=== PATIENT | male | born 1960 | race Caucasian/White ===

== ENCOUNTER 2020-05-07 06:37 | Day surgery (SDC) | payer BC ==
--- NOTE | 2020-05-05 12:57 | RAD REPORT ---
EXAM DESCRIPTION: RAD - Chest Pa And Lat (2 Views) - 05/05/2020 12:47 pm CLINICAL HISTORY: PREOP, pending catheterization and stent placement COMPARISON: None TECHNIQUE: Frontal and lateral views of the chest were obtained. FINDINGS: The lungs are clear of mass, infiltrate or failure finding. Prominence of the interstitial pattern believed to be baseline. Heart size is normal and central vasculature is within normal trejo its. No pleural effusion or pneumothorax seen. No acute bony finding noted. No aortic abnormality. IMPRESSION: No acute cardiopulmonary process.
[2020-05-05 13:51] LABS: BUN Blood Urea Nitrogen 12 mg/dL (7-18); Bicarbonate 25 mmol/L (21-32); Glucose Level 87 mg/dL (74-106); Sodium Level 138 mmol/L (136-145)
[2020-05-05 13:53] LABS: Absolute Lymphocytes (CBC) 2.5 K/uL (0.7-4.9); Basophils % 0.5 % (0-1.3); Hematocrit 43.2 % (39.6-49.0); Lymphocytes % 36.6 % (15.3-44.8); MPV 8.9 fL (7.6-11.3); RBC Red Blood Cell Count 4.57 M/uL (4.33-5.43)
[2020-05-05 13:57] LABS: Protime INR 0.99
[2020-05-07] MEDS ORDERED: NA CHLORIDE 0.9% 500 ML ONE (06:57)
[2020-05-07] MEDS ORDERED: LIDOCAINE 1% 20 ML MDV ONE (06:59)
[2020-05-07] MEDS ORDERED: HEPA 1000U/500MLS 1,000 UNIT/500 ML BAG IV ONE (06:59)
[2020-05-07] MEDS ORDERED: FENTANYL CITR 100 MCG/2 ML ONE ×2 (07:26→08:13)
[2020-05-07] MEDS ORDERED: ATROPINE SULF 1 MG/10 ML SYR IV ONE (07:26)
[2020-05-07] MEDS ORDERED: MIDAZOLAM HCL 2 MG/2 ML INJ ONE ×4 (07:26→08:33)
[2020-05-07] MEDS ORDERED: NA CHLORIDE 0.9% 0 ML ONE (07:26)
[2020-05-07 09:23] VITALS: TEMP 97.2
--- NOTE | 2020-05-07 09:33 | OP ---
Surgeon: Neftali Selby MD Fan Engine Engineer: Mr. Phipps. The patient's only medication at home is aspirin. I will make sure I will add statin and low-dose be ta fe and I will follow up with him after the surgeon reviews the films. Reason For Admission: To perform a left heart catheterization with selective coronary arteriogram an d left ventriculogram. Indication: Chest pain and abnormal nuclear stress test. Procedure In Detail: The patient was brought to the laborer tree tapping as an outpatient, prepped and draped in routine sterile fashion. Given Versed and fentanyl for sedation. Using the Seldinger technique, 10 cc of Xylocaine were used in the right common femoral artery area. A 6-Marshallese sheath was introduced in the right common femoral artery area successfully. Angiography there was normal. StarClose was used to close the procedure. The Ministerio catheter left and right were used to cannulate the left patricia n and right main respectively. The left main was normal. He had a 99% LAD with some collaterals fro m the circumflex. The size of the LAD distally appeared to be about 1.5 mm with a 90% ostial large r amus, a 70% proximal large diagonal, 50% proximal LAD, 80% proximal and distal RCA and 90% posterolat eral found after a JR4 right main injection. There were no complications. Blood loss was 5 mL. Postoperative Diagnosis: Severe coronary artery disease. Anesthesia: Total conscious sedation was 45 minutes. The patient will be at bedrest for 2 hours and he will go home. Plan: The plan for him to show a CD to cardiovascular surgeon in [place] and plan hopefully a CABG i n the near future. ADAM/YASMANI Voice ID: [id number] Report ID: [id number]
[2020-05-07 10:38] VITALS: BP 115/65; O2SAT 98
== END 2020-05-07 10:43 | disposition home or self-care (01) ==
LOC: CCL 06:37
DX: I25.10 Atherosclerotic heart disease of native coronary artery without angina pectoris (principal); I10 Essential (primary) hypertension; F17.220 Nicotine dependence, chewing tobacco, uncomplicated; Z20.822 Contact with and (suspected) exposure to COVID-19
CPT/HCPCS: 85025; 80048; 36415; 85610; 85730; 71046; 93454; U0002; C1893; J2250 ×3; J3010 ×2; J7040; J1644; J0583

== ENCOUNTER 2021-12-01 08:53 | Observation (INO) | payer BC ==
--- NOTE | 2021-11-26 14:12 | RAD REPORT ---
EXAM DESCRIPTION: RAD - Chest Pa And Lat (2 Views) - 11/26/2021 1:55 pm CLINICAL HISTORY: Pre op pending knee arthroplasty COMPARISON: Chest Pa And Lat (2 Views) dated 05/05/2020 FINDINGS: Lines: None. Lungs: No evidence of edema or pneumonia. Pleural: No significant pleural effusions or pneumothorax. Cardiac: The heart size is within normal limits. Mediastinum: Within normal limits. Bones: No acute fractures. Sternotomy. Other: None IMPRESSION: No acute cardiopulmonary disease.
[2021-11-26 14:20] LABS: Absolute Lymphocytes (CBC) 2.7 K/uL (0.7-4.9); Hematocrit 41.5 % (39.6-49.0); Lymphocytes % 42.2 % (15.3-44.8); MCV 95.4 fL (80-100); MPV 7.5 fL (7.6-11.3); RBC Red Blood Cell Count 4.36 M/uL (4.33-5.43)
[2021-11-26 14:37] LABS: Protime INR 1.07
[2021-11-26 14:52] LABS: SARS-CoV-2 Antigen Rapid Res Negative (Negative)
--- NOTE | 2021-12-01 06:45 | EKG ---
Test Date: 2021-11-26 Test Time: 13:37:22 Supervisor [employer]: RADHA MEASUREMENT RESULTS: Intervals: Rate: 59 NM: 226 QRSD: 90 QT: 400 QTc: 396 [place]: P: 40 NM: 226 QRS: 10 T: 23 INTERPRETIVE STATEMENTS: Sinus bradycardia with 1st degree AV block Inferior infarct, age undetermined Possible Anterolateral infarct, age undetermined Abnormal ECG No previous ECG available for comparison Electronically Signed On 12-01-21 06:33:10 CDT by Neftali Selby
[2021-12-01] MEDS ORDERED: ACETAMINOPHEN 500 MG TAB ONE (09:22)
[2021-12-01] MEDS ORDERED: GABAPENTIN 100 MG CAP ONE (09:22)
[2021-12-01] MEDS ORDERED: Oxycodone HCl/Acetaminophen 1 TAB TAB ONE (09:22)
[2021-12-01] MEDS ORDERED: CELECOXIB 100 MG CAPSULE ONE (09:22)
[2021-12-01] MEDS ORDERED: CEFAZOLIN 2 GM IN 0.9% NACL 2 GM/100 ML BAG ONE (09:23)
[2021-12-01] MEDS ORDERED: Ringers Lactate 1,000 ML IV ONE ×2 (09:23→16:45)
[2021-12-01] MEDS ORDERED: TRANEXAMIC ACID 1,000 MG/10 ML VIAL IV ONE (10:01)
[2021-12-01] MEDS ORDERED: LIDOCAINE 1% MPF 5 ML VIAL ONE (11:54)
[2021-12-01] MEDS ORDERED: dexAMETHasone 10 MG/ML VIAL ONE ×2 (11:54→13:11)
[2021-12-01] MEDS ORDERED: EPINEPHRINE/PF 1 MG/ML AMP ONE (11:55)
[2021-12-01] MEDS ORDERED: MIDAZOLAM HCL 2 MG/2 ML INJ ONE (11:55)
[2021-12-01] MEDS ORDERED: FENTANYL CITR 100 MCG/2 ML ONE (11:55)
[2021-12-01] MEDS ORDERED: BUPIVACAINE 0.5% Inj,MDV 50 mL VIAL ONE (11:55)
[2021-12-01] MEDS ORDERED: BUPIVACAINE 0.25% PF 30 ML VIAL ONE (11:55)
[2021-12-01] MEDS ORDERED: HYDROMORPHONE HCL 1 MG/ML INJ ONE ×2 (12:35→16:45)
[2021-12-01] MEDS ORDERED: propofoL 200 MG/20 ML VIAL IV ONE (12:42)
[2021-12-01] MEDS ORDERED: LIDOCAINE 2% MPF 5 ML VIAL ONE (12:43)
[2021-12-01] MEDS ORDERED: KETAMINE HCL 500 MG/5 ML VIAL ONE (13:11)
[2021-12-01] MEDS ORDERED: ONDANSETRON 4 MG/2 ML VIAL ONE (13:12)
[2021-12-01] MEDS ORDERED: KETOROLAC 30 MG/ML INJ ONE (13:12)
[2021-12-01] MEDS ORDERED: ONDANSETRON 4 MG/2 ML VIAL IV PRN (15:09)
[2021-12-01] MEDS ORDERED: ACETAMINOPHEN 325 MG TABLET PO PRN (15:09)
[2021-12-01] MEDS ORDERED: DOCUSATE NA 100 MG CAP PO PRN (15:09)
--- NOTE | 2021-12-01 15:09 | P.BOP ---
Preoperative diagnosis: right knee osteoarthritis Postoperative diagnosis: same Primary procedure: right total knee arthroplasty Car Icer: NONE,NONE Estimated blood loss: 50 cc Specimen: right knee bone remnants Findings: see dictation Anesthesia: General Complications: None Implants: [employer] Persona 9 CR Femur, G tibia, 10 CR poly, 32 patella Fluids & blood products: per anesthesia record; TT: 77 mins @ 300 mmHg Transferred to: Recovery Room Condition: Good
[2021-12-01] MEDS ORDERED: TRAMADOL HCL 50 MG TAB PO PRN (15:12)
[2021-12-01] MEDS: HYDROMORPHONE HCL 1 MG/ML INJ ONE ×2 (15:24→15:39)
--- NOTE | 2021-12-01 15:42 | RAD REPORT ---
EXAM DESCRIPTION: RAD - Knee Right 2 View - 12/01/2021 3:32 pm CLINICAL HISTORY: Post Op COMPARISON: No comparisons FINDINGS: Right total knee arthroplasty has been performed. No immediate unexpected postoperative fi nding. Midline skin margarita are present. Small amount of fluid is present in the joint.
[2021-12-01 15:55] LABS: Hematocrit 42.7 % (39.6-49.0)
--- OUTSIDE RECORDS SUMMARY | 2021-12-01 15:58 | XMS REPORT | Continuity of Care Document ---
:1960 Author Organization [facility] t Address [address] [place] [address] Care Team Providers Name Role Phone STEFFANY DEWEY Attending Clinician Unavailable Sunny CARREON, Vania Gamino Attending Clinician [phone] Jeffy Hu DO Attending Clinician Rick RODRIGUEZ, Atul Gauthier Attending Clinician [phone] Gunner RODRIGUEZ, Oliva Baker Attending Clinician [phone] Jesse Myers MD Attending Clinician Alyssa RODRIGUEZ, Palomo Key Attending Clinician [phone] Dustin RODRIGUEZ, Alverto Martines Attending Clinician Flynn Serrato MD, John García Attending Clinician [phone] JESSE MYERS Attending Clinician Unavailable Jorge RODRIGUEZ, Gerardo Rodriguez Attending Clinician Allison RODRIGUEZ, Jacklyn Montilla Attending Clinician Rey Brody MD Attending Clinician [phone] STEFFANY DEWEY Admitting Clinician Unavailable JESSE MYERS Admitting Clinician Unavailable Payers Payer Name Policy Type Policy Number Effective Date Expiration Date S alexandra BCBS PPO POS EPO [id number] 2015 00:00:00 CHOICE Problems Condition Condition Condition Status Onset Resolution Last Treating Co mments Source Name Details Category Date Date Treatment Clinician Date Acute Acute Disease Active [facility] ischemia ischemia 00:00: Medica l of small of small 00 Center intestine intestine Generalize Generalize Disease Active [facility] d 03-30 [facility] abdominal abdominal 00:00: Medi joie pain pain 00 Center SBO (small SBO (small Disease Active [facility] bowel bowel 18 [facility] obstructio obstructio 00:00: Me dical n) n) 00 Center CAD CAD Disease Active [facility] (coronary (coronary 05-29 [facility] artery artery 00:00: Medical disease) disease) 00 Center s/p ACB X s/p ACB X Disease Active [facility] 2 By 2 By 05-28 [facility] Maco Dewey 00:00: Medical 00 Center Coronary Coronary Disease Active [facility] artery artery 05[facility]19 [facility] disease of disease of 00:00: Me dical [place] 00 Center artery of artery of [place] heart 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 Essential Essential Disease Active [facility] hypertensi hypertensi 3 Irma kes on on 00:00: Medical 00 [place] Mixed Mixed Disease Active [facility] hyperlipid hyperlipid - Irma kes emia emia 00:00: Medical 00 [place] Class 3 Class [address] [facility] severe severe 05-19 [facility] obesity in obesity in 00:00: La dical adult adult 00 Center Umbilical Umbilical Disease Active [facility] hernia hernia 05-19 [facility] 00:00: Medical 00 [place] Hyperlipid Hyperlipid Disease Active [facility] emia emia [facility] Allergies, Adverse Reactions, Alerts Allergy Allergy Status Severity Reaction(s) Onset Inactive Treating Comm ents Source Name Type Date Date Clinician NO KNOWN Allergy Active [facility] S Family History Family Member Diagnosis Comments Start Date Stop Date Source Natural father Cancer [facility] Social History Social Habit Start Date Stop Date Quantity Comments Source History SDOH [facility] Alcohol Frequency [facility] History SDOH [facility] Alcohol Std Medical Cent[facility] r Drinks History SDOH [facility] Alcohol Binge Medical Bina ter History of Chews Tobacco [facility] tobacco use Medical Cente r Alcohol intake 2021-03-30 2021-03-30 Current drink[facility] 00:[facility]00 [facility]00:00 alcohol (finding) Medical Center History SDOH 2020-05-26 2020-05-[address] Melanie es Alcohol Comment 00:00:00 00:00:00 Medical C enter Tobacco Comment 2020-05-26 2020-05-26 occasional dip [facility] Tobacco use and 2020-05-19 2020-05-[address] [facility] exposure 00:00:00 00:00:00 Medical Center Sex Assigned At [address] Irma kes 00:00:00 00:00:00 Medical Center Smoking Status Start Date Stop Date Source Never smoker [facility] Medications Ordered Filled Start Stop Current Ordering Indication Dosage Frequency Signature Comments Components Source Medication Medication Date Date Medication? Clinician (SIG) Name Name atorvastati Yes 80mg QD Take [address] n (LIPITOR) 1-25 by mouth Luke s 80 MG 13:26: daily. Medical tablet 39 Center aspirin 81 Yes 81mg QD Take [address] MG EC 1-25 by mouth [facility] tablet 13:26: daily. [address] metoprolol 2021- 12.5mg Q.5D Take 0.[address] tartrate 3-23 -25 tablets [facility] (LOPRESSOR) 00:00: 00:00 (12.5 mg M edical 25 MG 00 :00 total) by Center tablet mouth 2 (two) times daily. Vital Signs Vital Name Observation Time Observation Value Comments Source WEIGHT 2020-06-02 04:24:00 128.05 kg WEIGHT 2020-06-01 07:58:00 129.23 kg WEIGHT 2020-05-31 06:13:00 129.457 kg HEIGHT 2020-05-28 06:23:00 177.8 cm WEIGHT 2020-05-28 06:23:00 129.729 kg HEIGHT 2020-05-26 14:39:00 180.3 cm WEIGHT 2020-05-26 14:39:00 129.729 kg WEIGHT 2021-04-05 05:00:00 103.284 kg WEIGHT 2021-04-03 11:00:00 105.824 kg WEIGHT 2021-04-01 05:00:00 116 kg HEIGHT 2021-03-30 14:25:00 180.3 cm WEIGHT 2021-03-30 14:25:00 108.863 kg HEIGHT 2021-03-29 21:03:00 180.3 cm WEIGHT 2021-03-29 21:03:00 108.863 kg WEIGHT 2021-04-05 05:00:00 103.284 kg WEIGHT 2021-04-03 11:00:00 105.824 kg WEIGHT 2021-04-01 05:00:00 116 kg HEIGHT 2021-03-30 14:25:00 180.3 cm WEIGHT 2021-03-30 14:25:00 108.863 kg HEIGHT 2021-03-29 21:03:00 180.3 cm WEIGHT 2021-03-29 21:03:00 108.863 kg WEIGHT 2021-04-05 05:00:00 103.284 kg WEIGHT 2021-04-03 11:00:00 105.824 kg WEIGHT 2021-04-01 05:00:00 116 kg HEIGHT 2021-03-30 14:25:00 180.3 cm WEIGHT 2021-03-30 14:25:00 108.863 kg HEIGHT 2021-03-29 21:03:00 180.3 cm WEIGHT 2021-03-29 21:03:00 108.863 kg HEIGHT 2020-06-09 10:09:00 177.8 cm WEIGHT 2020-06-09 10:09:00 126.1 kg WEIGHT 2020-06-02 04:24:00 128.05 kg WEIGHT 2020-06-01 07:58:00 129.23 kg WEIGHT 2020-05-31 06:13:00 129.457 kg HEIGHT 2020-05-28 06:23:00 177.8 cm WEIGHT 2020-05-28 06:23:00 129.729 kg HEIGHT 2020-05-26 14:39:00 180.3 cm WEIGHT 2020-05-26 14:39:00 129.729 kg HEIGHT 2020-05-25 09:07:00 180.3 cm WEIGHT 2020-05-25 09:07:00 129.729 kg HEIGHT 2020-05-25 09:07:00 180.3 cm WEIGHT 2020-05-25 09:07:00 129.729 kg WEIGHT 2020-05-19 12:19:00 129.729 kg Heart rate 2021-04-06 10:38:53 70 /min [facility] Oxygen saturation in 2021-04-06 10:38:53 97 /min [facility] Arterial blood by Medical Ce nter Pulse oximetry Systolic blood 2021-04-06 10:38:46 109 mm[Hg] [facility] Diastolic blood 2021-04-06 10:38:46 73 mm[Hg] [facility] Body temperature 2021-04-06 10:38:44 36.61 Josefina [facility] Respiratory rate 2021-04-06 10:38:20 18 /min [facility] Body weight 2021-04-05 05:00:00 103.284 kg [facility] BMI 2021-04-05 05:00:00 31.76 kg/m2 [facility] Body height 2021-03-30 14:25:00 180.3 cm [facility] Procedures Procedure Date / Time Performing Clinician Source Performed BASIC METABOLIC PANEL (7) 2021-04-04 04:45:00 Flynn Serrato [facility] POCT-GLUCOSE METER 2021-04-03 16:00:00 Flynn Serrato [facility] POCT-GLUCOSE METER 2021-04-03 11:38:00 Flynn Serrato [facility] CBC W/PLT COUNT & AUTO 2021-04-03 06:39:00 Alverto Chan [facility] CBC W/PLT COUNT & AUTO 2021-04-03 06:39:00 [facility] POCT-GLUCOSE METER 2021-04-03 06:04:00 Alverto Chan [facility] MAGNESIUM 2021-04-03 04:15:00 [facility] 2021-04-03 04:15:00 [place], [facility] BASIC METABOLIC PANEL (7) 2021-04-03 04:15:00 DustinJasonaartisteven Dunbar mark [facility] POCT-GLUCOSE METER 2021-04-03 01:46:00 DustinAlverto Abid [facility] POCT-GLUCOSE METER 2021-04-02 15:45:00 DustinJeffe Abid [facility] POCT-GLUCOSE METER 2021-04-02 11:37:00 DustinJeffe Abid [facility] POCT-GLUCOSE METER 2021-04-02 06:05:00 Jeff Chane [facility] CBC W/PLT COUNT & AUTO 2021-04-02 04:36:00 Ankita Duron [facility] MAGNESIUM 2021-04-02 04:36:00 Ankita Duron [facility] COMPREHENSIVE METABOLIC 2021-04-02 04:36:00 Ankita Duron [facility] CBC W/PLT COUNT & AUTO 2021-04-02 04:36:00 Ankita Duron [facility] PHOSPHORUS 2021-04-02 04:36:00 Maddison [facility] POCT-GLUCOSE METER 2021-04-01 23:56:00 Jeff Chansteven Redmand [facility] POCT-GLUCOSE METER 2021-04-01 17:14:00 Jeff Chane Abid [facility] POCT-GLUCOSE METER 2021-04-01 11:25:00 DustinJasonoze Abid [facility] POCT-GLUCOSE METER 2021-04-01 03:52:[address] [facility] CBC W/PLT COUNT & AUTO 2021-04-01 03:48:00 Ankita Duron [facility] MAGNESIUM 2021-04-01 03:48:00 Ankiat Duron [facility] COMPREHENSIVE METABOLIC 2021-04-01 03:48:00 Ankita Duron [facility] CBC W/PLT COUNT & AUTO 2021-04-01 03:48:00 Ankita Duron [facility] TRIGLYCERIDES 2021-04-01 03:48:00 [facility] 2021-04-01 03:48:00 [facility] PO[facility]SE METER 2021-04-01 00:34:00 [facility] POCT-GLUCOSE METER 2021-03-31 22:51:00 [facility] POCT-GLUCOSE METER 2021-03-31 17:54:00 [facility] POCT-GLUCOSE METER 2021-03-31 11:07:00 [facility] POCT-GLUCOSE METER 2021-03-31 07:25:00 [facility] W/[facility]T COUNT & AUTO 2021-03-31 03:20:00 Ankita Duron [facility] CBC W/PLT COUNT & AUTO 2021-03-31 03:20:00 Ankita Duron [facility] BLOOD GAS, ARTERIAL 2021-03-31 03:01:00 Ankita Duron [facility] MAGNESIUM 2021-03-31 03:00:00 Ankita Duron [facility] CALCIUM, IONIZED 2021-03-31 03:00:00 Ankita Duron [facility] COMPREHENSIVE METABOLIC 2021-03-31 03:00:00 Ankita Duron [facility] LACTIC ACID, VENOUS 2021-03-31 03:00:00 Ankita Duron [facility] STD PANEL - CT/GC RNA 2021-03-31 02:02:00 Ankita Duron [facility] URINE CULTURE 2021-03-31 02:02:00 Ankita Duron [facility] URINALYSIS W/ REFLEX URINE 2021-03-31 02:02:00 Ankita Duron [facility] CULTURE [facility] GENITAL CULTURE + GRAM 2021-03-31 02:00:00 nAkita Duron [facility] POCT-GLUCOSE METER 2021-03-31 00:06[facility]00 [facility] 2021-03-30 20:26:00 Jacqueline [facility] PROTHROMBIN TIME/INR 2021-03-30 18:40:00 Jacqueline [facility] CBC W/PLT COUNT & AUTO 2021-03-30 18:26:00 [facility] 2021-03-30 18:26[facility] W/PLT COUNT & AUTO 2021-03-30 18:26:00 [facility] COMPREHENSIVE METABOLIC 2021-03-30 18:26:00 [facility] 2021-03-30 18:26:[facility] 2021-03-30 18:26[facility] BLOOD GAS, ARTERIAL 2021-03-30 18:25[facility]00 [facility] + GRAM 2021-03-30 18:17:00 [facility] 1 VIEW PORTABLE / 2021-03-30 17:30:00 Jacklyn Cooper [facility] POCT-GLUCOSE METER 2021-03-30 17:00:00 Lucia [facility] TISSUE EXAM 2021-03-30 15:53:[address] [facility] LAPAROTOMY, EXPLORATORY 2021-03-30 14:25:00 Gerardo Patel [facility] HERNIORRHAPHY, VENTRAL 2021-03-30 14:25:00 Gerardo Patel [facility] TYPE AND SCREEN, AUTOMATED 2021-03-30 14:09:00 MetabenjaminRey huff Christiano [facility] XR ABDOMEN / KUB 1 VIEW 2021-03-30 12:15:00 Wyramos [facility] POCT-GLUCOSE METER 2021-03-30 12:08:00 [facility] SARS-COV2/RT-PCR ([facility] & 2021-03-30 03:40:00 Atul Caberra [facility] REF LABS) [facility] CT ABDOMEN/PELVIS WITH IV 2021-03-30 02:30:00 Vania Correa [facility] CONTRAST [facility] COMPREHENSIVE METABOLIC 2021-03-29 23:40:[address] [facility] PANEL [facility] URINALYSIS W/ REFLEX URINE 2021-03-29 23:29:00 Vania Correa [facility] CULTURE [facility] ECG 12-LEAD 2021-03-29 22:27:41 [facility] 12[facility]AD 2021-03-29 22:27:41 Unknown, Hl7 Doctor [facility] ECG 12-LEAD 2021-03-29 22:27:41 Unknown, Hl7 Doctor [facility] ED ECG INTERPRETATION 2021-03-29 22:27:[address] [facility] CBC W/PLT COUNT & AUTO 2021-03-29 22:19:00 CorreaaVnia harris [facility] DIFFERENTIAL [facility] CBC W/PLT COUNT & AUTO 2021-03-29 22:19:00 Vania Correa [facility] DIFFERENTIAL [facility] LIPASE 2021-03-29 22:19:[address] [facility] TROPONIN I 2021-03-29 22:19:[address] [facility] EKG-SCANNED 2021-03-29 00:00:00 [facility] Plan of Care Planned Activity Planned Date Details Comments Source Future Scheduled 2023-05-26 Lipid panel (procedure) [facility] Test 00:00:00 [code = 36380348] Medical Ce nter Future Scheduled 2021-11-11 INFLUENZA VACCINE (#1) [facility] 00:00:00 [code = INFLUENZA Medical Ce nter VACCINE (#1)] Future Scheduled 2021-03-[address] [facility] Test 00:00:00 (12+) [code = Medical Center DEPRESSION SCREENING (12+)] Future Scheduled 2009-10-10 SHINGLES VACCINES ([address] [facility] Test 00:00:00 2) [code = SHINGLES Medical Center VACCINES (1 of 2)] Future Scheduled 1978-10-10 DTAP/TDAP/TD VACCINES [facility] Test 00:00:00 (1 - Tdap) [code = Medical C enter DTAP/TDAP/TD VACCINES (1 - Tdap)] Future Scheduled 1977-10-10 HEPATITIS C SCRE[facility]ING [facility] Test 00:00:00 [code = HEPATITIS C Medical Center SCREENING] Future Scheduled 1965-10-[address] [facility] Test 00:00:00 0-64 YRS (1 - PCV) Medical C enter [code = PNEUMOCOCCAL VACCINE 0-64 YRS (1 - PCV)] Future Scheduled 1960-04-12 COVID-19 VACCINE (#1) [facility] Test 00:00:00 [code = COVID-[address] VACCINE (#1)] Future Scheduled 1960 CT Colonography (combo) [facility] Test 00:00:00 [code = CT Colonography [facility] (combo)] Future Scheduled 1960 Screening for malignant [facility] Test 00:00:00 neoplasm of colon Medical Ce nter (procedure) [code = 411750420] Future Scheduled 1959 Screening for malignant [facility] Test 00:00:00 neoplasm of colon Medical Ce nter (procedure) [code = 686838228] Future Scheduled 1959 Screening for malignant [facility] Test 00:00:00 neoplasm of colon Medical Ce nter (procedure) [code = 197650851] Future Scheduled 1959 Screening for malignant [facility] Test 00:00:00 neoplasm of colon Medical Ce nter (procedure) [code = 776920124] Future Scheduled 1960 Sigmoidoscopy [code = [facility] Test 00:00:00 Sigmoidoscopy] Medical Cente r Encounters Start End Encounter Admission Attending Care Care Encounter Source Date/Time Date/Time Type Type Clinicians Facility Department ID 2021-11-30 Outpatient [facility] [id number] Common 08:00:[id number] [facility] 2021-09-16 Outpatient [facility] [id number] Common 14:17:[id number] [facility] 2020-12-19 Inpatient [facility] Surgery [id number] [facility] 07:10:59 STEFFANY 2021-03-29 2021-04-06 [facility] [id number] [facility] 22:03:00 13:26:00 Encounter Jeffy Hu Laxman Rao [facility] Ray-Isaias, Oliva Baker [facility] Humberto Palomo Shah, John Bender 2021-03-29 2021-04-06 [facility] N/A [id number] [facility] 22:03:00 13:26:00 2021-03-29 2021-04-06 [facility] [id number] 22:03:00 13:26:00 Encounter Jeffy Hu Laxman Rao Medical Ray-Oliva Esparza [facility] Humberto Palomo Shah, John Bender 2021-03-30 2021-03-30 Surgery Jorge [facility] [id number] 15:00:00 17:30:00 [facility] 2021-03-30 2021-03-30 Surgery Jorge, [facility] [id number] 15:00:00 17:30:00 [facility] 2021-03-30 2021-03-30 Anesthesia Jacklyn Cooper [facility] [id number] 14:40:00 16:57:00 [place] [facility] 2021-03-30 2021-03-30 Anesthesia Jacklyn Cooper [facility] [id number] 14:40:00 16:57:00 Event [facility] 2021-03-29 2021-03-29 Orders [facility] [id number] 00:00:00 00:00:00 [facility] 2021-03-29 2021-03-29 Travel [facility] [id number] [facility]00 [facility] 2021-03-29 2021-03-29 Orders [facility] [id number] 00:00:00 00:00:00 [facility] 2021-03-29 2021-03-29 Travel [facility] [id number] [facility]00 [facility] 2020-06-09 2020-06-09 Outpatient KEVIN RUBIO [facility] [id number] SLE 00:00:00 00:00:00 STEFFANY 2020-05-26 2020-05-26 Outpatient MAULIK [facility] [id number] [facility] 00:00:00 00:00:00 2020-05-25 2020-05-25 Outpatient [facility] [id number] SLE 00:00:00 00:00:00 2020-05-19 2020-05-19 Outpatient [facility] [id number] [facility] 00:00:00 00:00:00 STEFFANY Results Test Description Test Time Test Comments Results Result Comments Source Basic Metabolic Panel 2021-04-04 05:40:33 Test Item Value Reference Range Interpretation Comme nts Sodium (test code = 139 meq/L 331-833 9081-2) Potassium (test code = 3.7 meq/L 3.5-5.5 Speci men slightly 2823-3) hemolyzed Chloride (test code = 106 meq/L 98-106 5-0) CO2 (test code = 21 meq/L 2027-11) BUN (test code = 11 mg/dL 01-05 3094-0) Creatinine (test code = 0.61 mg/dL 0.50-1.20 Spec imen slightly 2160-0) hemolyzed Glucose (test code = 92 mg/dL 70-110 2345-7) Calcium (test code = 8.8 mg/dL 8.5-10.5 91353-1) EGFR (test code = 134 mL/min/1.73 [place] [address]-2) ACCURATE CREATININE LADARIUS BRUCE IN PREDICTING GLOMERULAR FILT RATION RATE. ESTIMATED GFR IS NOT APPLICABLE FOR DIALYSIS PATIEN TS. VANSESA (test code = VANESSA) Net Sql Developer ID - [id number] [facility] Metabolic [id number] 05:40:33 Test Item Value Reference Range Interpretation Comments Sodium (test code = 139 meq/L 177-904 6892-2) Potassium (test 3.7 meq/L 3.5-5.5 Specimen sli ghtly code = 2823-3) hemolyzed Chloride (test code 106 meq/L 98-106 = 2075-0) CO2 (test code = 21 meq/L 2027-11) BUN (test code = 11 mg/dL 01-05 3094-0) Creatinine (test 0.61 mg/dL 0.50-1.20 Specimen sl ightly code = 2160-0) hemolyzed Glucose (test code 92 mg/dL 70-110 = 2345-7) Calcium (test code 8.8 mg/dL 8.5-10.5 = 70909-1) EGFR (test code = 134 mL/min/1.[place] [address]-9) NOT ACCURATE CREATININE CLEARANCE IN PREDICTING GLOMERULAR FILTRATION RATE . ESTIMATED GFR I S NOT APPLICABLE FOR DIALYSIS PATIEN TS. VANESSA (test code = Net Sql Developer ID - VANESSA) [id number] [facility] METABOLIC [id number] 05:40:33 Test Item Value Reference Range Interpretation Comments SODIUM (BEAKER) 139 meq/L 135-148 (test code = 381) POTASSIUM (BEAKER) 3.7 meq/L 3.5-5.5 Specimen slightly (test code = 379) hemolyzed CHLORIDE (BEAKER) 106 meq/L 98-106 (test code = 382) CO2 (BEAKER) (test 21 meq/L 20-31 code = 355) BLOOD UREA NITROGEN 11 mg/dL 10-26 (BEAKER) (test code = 354) CREATININE (BEAKER) 0.61 mg/dL 0.50-1.20 Specimen slightly (test code = 358) hemolyzed GLUCOSE RANDOM 92 mg/dL 70-110 (BEAKER) (test code = 652) CALCIUM (BEAKER) 8.8 mg/dL 8.5-10.5 (test code = 697) EGFR (BEAKER) (test 134 mL/min/1.73 ESTIM ATED GFR IS code = 1092) sq m NOT ACCURATE CREATININE CLEARANCE IN PREDICTING GLOMERULAR FILTRATION RATE . ESTIMATED GFR I S NOT APPLICABLE FOR DIALYSIS PATIEN TS. Net Sql Developer ID - [id number] 16:12:31 Test Item Value Reference Range Interpretation Comments POC-Glucose Meter (test 107 mg/dL 70-110 : TE STED AT [facility] code = 1538) [address] [facility] [address]: Net Sql Developer/Techni yuly ID = [id number] for Ade Naima Lab Interpretation (test Normal code = 77302-9) [facility]Glucose [id number] 16:12:31 Test Item Value Reference Range Interpretation Comments POC-Glucose Meter (test 107 mg/dL 70-110 : TE STED AT [facility] code = 1538) [address] [facility] [address]: Net Sql Developer/Techni yuly ID = [id number] for Ade, Naima Lab Interpretation (test Normal code = 52378-6) [facility]-GLUCOSE [id number] 16:12:31 Test Item Value Reference Range Interpretation Comments POC-GLUCOSE METER 107 mg/dL 70-110 : TESTED A T [facility] [address] (BEAKER) (test code [facility] [address] [facility], = 1538) [facility] 77 384: Net Sql Developer/Techni yuly ID = [id number] for Naima Guillen STD Panel - CT/GC [id number] 15:13:53 Test Item Value Reference Interpretation Comments Range C. trachomatis NOT DETECTED RNA, TMA (test code = 0104422) N. gonorrhoeae NOT DETECTED REFERENCE RA NGE: NOT RNA, TMA (test DETECTED Meth odology: code = 4778204) Transcriptio n Mediated Amplification ( TMA)to detect RNA. The analytical perf ormance characteristics of thisassay, when used to test SurePat h(TM) specimens haveb een determined by [employer]. Th e modificationsha ve not been cleared or approved by the FDA. This assayhas b een validated pursu ant to the Infectiousa tions andis used for clinical purpos es. For additional information, pl ease refer tohttps://First To File/faq /ZWR094(This li nk is being provided for informational/e ducatio nal purposes on ly.) VANESSA (test code = Performing Lab VANESSA) *[employer] [facility] [address] [address] Daniel Cárdenas MD, PhD [facility] - CT/GC [id number] 15:13:53 Test Item Value Reference Interpretation Comments Range C. trachomatis NOT DETECTED RNA, TMA (test code = 8945542) N. gonorrhoeae NOT DETECTED REFERENCE RA NGE: NOT RNA, TMA (test DETECTED Meth odology: code = 4834219) Transcriptio n Mediated Amplification ( TMA)to detect RNA. The analytical perf ormance characteristics of thisassay, when used to test SurePat h(TM) specimens haveb een determined by [employer]. Th e modificationsha ve not been cleared or approved by the FDA. This assayhas b een validated pursu ant to the CLIA regula tions andis used for clinical purpos es. For additional information, pl ease refer tohttps://LOGIC DEVICESa Bokecc/faq /IMB912(This li nk is being provided for informational/e ducatio nal purposes on ly.) VANESSA (test code = Performing Lab VANESSA) *QD[facility] [address] [place] [address] Daniel Cárdenas MD, PhD [facility]-GLUCOSE [id number] 11:49:30 Test Item Value Reference Range Interpretation Comments POC-GLUCOSE METER 107 mg/dL 70-110 : TESTED A T [facility] [address] (BEAKER) (test code [facility] [address] [facility], = 1538) [place] [address] 384: Net Sql Developer/Techni yuly ID = [id number] for Naima Guillen Genital culture + gram [id number] 11:44:17 Test Item Value Reference Range Interpretation Comments Result (test code = 6463-4) 1+ Skin gayle Gram Stain Result (test No organisms seen code = 1123) [facility] [id number] 11:44:17 Test Item Value Reference Range Interpretation Comments Result (test code = 6463-4) 1+ Skin gayle Gram Stain Result (test No organisms seen code = 1123) [facility]AM [id number] 11:44:17 Test Item Value Reference Range Interpretation Comments CULTURE (BEAKER) (test 1+ Skin gayle code = 1095) GRAM STAIN RESULT 2+ White blood cells (BEAKER) (test code = seen 1123) GRAM STAIN RESULT No organisms seen (BEAKER) (test code = 03718) CBC with platelet count + automated [id number] 06:49:45 Test Item Value Reference Range Interpretation Comments WBC (test code = 6690-2) 6.1 See_Comment [A utomated message] The system [employer] generated this result transmitted ref erence range: 4.0 - 10 .0 K/L. The refe rence range was not u sed to interpret this result as normal/abnor mal. RBC (test code = 789-8) 3.25 See_Comment L [Au tomated message] The system [employer] generated this result transmitted ref erence range: 4.20 - 5 .80 M/L. The refe rence range was not u sed to interpret this result as normal/abnor mal. MCHC (test code = 786-4) 33.8 See_Comment L [A utomated message] The system [employer] generated this result transmitted ref erence range: 32.0 - 3 6.0 GM/DL. The refe rence range was not u sed to interpret this result as normal/abnor mal. Hematocrit (test code = 31.1 % 36.0-50.0 L 4544-3) MCV (test code = 787-2) 95.7 fL 82.0-99.0 MCH (test code = 785-6) 32.3 pg 27.0-33.0 RDW (test code = 788-0) 13.1 % 12.0-15.0 Platelets (test code = 215 See_Comment [Aut omated message] 777-3) The system [employer] generated this result transmitted ref erence range: 150 - 43 0 K/CU MM. The referen ce range was not u sed to interpret this result as normal/abnor mal. MPV (test code = 9.9 fL 6.0-11.5 03353-6) nRBC (test code = 413) 0 See_Comment [Aut omated message] The system [employer] generated this result transmitted ref erence range: 0 - 0 /1 00 WBC. The refere nce range was not u sed to interpret this result as normal/abnor mal. % Neutros (test code = 63 % 429) % Lymphs (test code = 23 % 430) % Monos (test code = 11 % 431) % Eos (test code = 432) 3 % % Baso (test code = 437) 0 % # Neutros (test code = 3.89 See_Comment [Aut omated message] 670) The system [employer] generated this result transmitted ref erence range: 1.80 - 8 .00 K/L. The refe rence range was not u sed to interpret this result as normal/abnor mal. # Lymphs (test code = 1.38 See_Comment L [Auto mated message] 414) The system [employer] generated this result transmitted ref erence range: 1.48 - 4 .50 K/L. The refe rence range was not u sed to interpret this result as normal/abnor mal. # Monos (test code = 0.66 See_Comment [Autom ated message] 415) The system [employer] generated this result transmitted ref erence range: 0.00 - 1 .30 K/L. The refe rence range was not u sed to interpret this result as normal/abnor mal. # Eos (test code = 416) 0.18 See_Comment [Au tomated message] The system [employer] generated this result transmitted ref erence range: 0.00 - 0 .50 K/L. The refe rence range was not u sed to interpret this result as normal/abnor mal. # Baso (test code = 417) 0.01 See_Comment [A utomated message] The system [employer] generated this result transmitted ref erence range: 0.00 - 0 .20 K/L. The refe rence range was not u sed to interpret this result as normal/abnor mal. Immature 0 % 0-0 Granulocytes-Relative (test code = 2801) Lab Interpretation (test Abnormal code = 27928-0) [facility] with platelet count + automated [id number] 06:49:45 Test Item Value Reference Range Interpretation Comments WBC (test code = 6690-2) 6.1 See_Comment [A utomated message] The system [employer] generated this result transmitted ref erence range: 4.0 - 10 .0 K/L. The refe rence range was not u sed to interpret this result as normal/abnor mal. RBC (test code = 789-8) 3.25 See_Comment L [Au tomated message] The system [employer] generated this result transmitted ref erence range: 4.20 - 5 .80 M/L. The refe rence range was not u sed to interpret this result as normal/abnor mal. MCHC (test code = 786-4) 33.8 See_Comment L [A utomated message] The system [employer] generated this result transmitted ref erence range: 32.0 - 3 6.0 GM/DL. The refe rence range was not u sed to interpret this result as normal/abnor mal. Hematocrit (test code = 31.1 % 36.0-50.0 L 4544-3) MCV (test code = 787-2) 95.7 fL 82.0-99.0 MCH (test code = 785-6) 32.3 pg 27.0-33.0 RDW (test code = 788-0) 13.1 % 12.0-15.0 Platelets (test code = 215 See_Comment [Aut omated message] 777-3) The system [employer] generated this result transmitted ref erence range: 150 - 43 0 K/CU MM. The referen ce range was not u sed to interpret this result as normal/abnor mal. MPV (test code = 9.9 fL 6.0-11.5 27786-9) nRBC (test code = 413) 0 See_Comment [Aut omated message] The system [employer] generated this result transmitted ref erence range: 0 - 0 /1 00 WBC. The refere nce range was not u sed to interpret this result as normal/abnor mal. % Neutros (test code = 63 % 429) % Lymphs (test code = 23 % 430) % Monos (test code = 11 % 431) % Eos (test code = 432) 3 % % Baso (test code = 437) 0 % # Neutros (test code = 3.89 See_Comment [Aut omated message] 670) The system [employer] generated this result transmitted ref erence range: 1.80 - 8 .00 K/L. The refe rence range was not u sed to interpret this result as normal/abnor mal. # Lymphs (test code = 1.38 See_Comment L [Auto mated message] 414) The system [employer] generated this result transmitted ref erence range: 1.48 - 4 .50 K/L. The refe rence range was not u sed to interpret this result as normal/abnor mal. # Monos (test code = 0.66 See_Comment [Autom ated message] 415) The system [employer] generated this result transmitted ref erence range: 0.00 - 1 .30 K/L. The refe rence range was not u sed to interpret this result as normal/abnor mal. # Eos (test code = 416) 0.18 See_Comment [Au tomated message] The system [employer] generated this result transmitted ref erence range: 0.00 - 0 .50 K/L. The refe rence range was not u sed to interpret this result as normal/abnor mal. # Baso (test code = 417) 0.01 See_Comment [A utomated message] The system [employer] generated this result transmitted ref erence range: 0.00 - 0 .20 K/L. The refe rence range was not u sed to interpret this result as normal/abnor mal. Immature 0 % 0-0 Granulocytes-Relative (test code = 2801) Lab Interpretation (test Abnormal code = 36063-8) [facility] W/PLT COUNT & AUTO [id number] 06:49:45 Test Item Value Reference Range Interpretation Comments WHITE BLOOD CELL COUNT (BEAKER) 6.1 K/ L 4.0-10.0 (test code = 775) RED BLOOD CELL COUNT (BEAKER) 3.25 M/ L 4.20-5.80 L (test code = 761) HEMOGLOBIN (BEAKER) (test code = 10.5 GM/DL 13.0-16.8 L 410) HEMATOCRIT (BEAKER) (test code = 31.1 % 36.0-50.0 L 411) MEAN CORPUSCULAR VOLUME (BEAKER) 95.7 fL 82.0-99.0 (test code = 753) MEAN CORPUSCULAR HEMOGLOBIN 32.3 pg 27.0-33.0 (BEAKER) (test code = 751) MEAN CORPUSCULAR HEMOGLOBIN CONC 33.8 GM/DL 32.0-36.0 (BEAKER) (test code = 752) RED CELL DISTRIBUTION WIDTH 13.1 % 12.0-15.0 (BEAKER) (test code = 412) PLATELET COUNT (BEAKER) (test 215 K/CU MM 150-430 code = 756) MEAN PLATELET VOLUME (BEAKER) 9.9 fL 6.0-11.5 (test code = 754) NUCLEATED RED BLOOD CELLS 0 /100 WBC 0-0 (BEAKER) (test code = 413) NEUTROPHILS RELATIVE PERCENT 63 % (BEAKER) (test code = 429) LYMPHOCYTES RELATIVE PERCENT 23 % (BEAKER) (test code = 430) MONOCYTES RELATIVE PERCENT 11 % (BEAKER) (test code = 431) EOSINOPHILS RELATIVE PERCENT 3 % (BEAKER) (test code = 432) BASOPHILS RELATIVE PERCENT 0 % (BEAKER) (test code = 437) NEUTROPHILS ABSOLUTE COUNT 3.89 K/ L 1.80-8.00 (BEAKER) (test code = 670) LYMPHOCYTES ABSOLUTE COUNT 1.38 K/ L 1.48-4.50 L (BEAKER) (test code = 414) MONOCYTES ABSOLUTE COUNT (BEAKER) 0.66 K/ L 0.00-1.30 (test code = 415) EOSINOPHILS ABSOLUTE COUNT 0.18 K/ L 0.00-0.50 (BEAKER) (test code = 416) BASOPHILS ABSOLUTE COUNT (BEAKER) 0.01 K/ L 0.00-0.20 (test code = 417) IMMATURE GRANULOCYTES-RELATIVE 0 % 0-0 PERCENT (BEAKER) (test code = 2801) POCT-GLUCOSE [id number] 06:16:23 Test Item Value Reference Range Interpretation Comments POC-GLUCOSE METER 115 mg/dL 70-110 H : TESTED A T [facility] [address] (BEAKER) (test code [facility], = 1538) [place] [address] 384: [employer]/Techni yuly ID = [id number] for Jyoti Caceres BASIC METABOLIC [id number] 05:01:58 Test Item Value Reference Range Interpretation Comments SODIUM (BEAKER) 139 meq/L 135-148 (test code = 381) POTASSIUM (BEAKER) 3.3 meq/L 3.5-5.5 L (test code = 379) CHLORIDE (BEAKER) 109 meq/L 98-106 H (test code = 382) CO2 (BEAKER) (test 20 meq/L 20-31 code = 355) BLOOD UREA NITROGEN 10 mg/dL 10-26 (BEAKER) (test code = 354) CREATININE (BEAKER) 0.59 mg/dL 0.50-1.20 (test code = 358) GLUCOSE RANDOM 101 mg/dL 70-110 (BEAKER) (test code = 652) CALCIUM (BEAKER) 8.8 mg/dL 8.5-10.5 (test code = 697) EGFR (BEAKER) (test 140 mL/min/1.73 ESTIM ATED GFR IS code = 1092) sq m NOT ACCURATE CREATININE CLEARANCE IN PREDICTING GLOMERULAR FILTRATION RATE . ESTIMATED GFR I S NOT APPLICABLE FOR DIALYSIS PATIEN TS. [employer] Developer ID - [id number] 05:01:16 Test Item Value Reference Range Interpretation Comments Phosphorus (test code = 3.3 mg/dL 2.5-4.5 2777-1) VANESSA (test code = VANESSA) [employer] ID - [id number] Lab Interpretation (test Normal code = 44302-5) [facility] 05:01[facility]16 Test Item Value Reference Range Interpretation Comments Phosphorus (test code = 3.3 mg/dL 2.5-4.5 2777-1) VANESSA (test code = VANESSA) [employer] Developer ID - [id number] Lab Interpretation (test Normal code = 41707-4) [facility] 05:01:16 Test Item Value Reference Range Interpretation Comments PHOSPHORUS (BEAKER) (test code = 3.3 mg/dL 2.5-4.5 604) [employer] ID - [id number] 05:01:15 Test Item Value Reference Range Interpretation Comments Magnesium (test code = 1.7 mg/dL 1.5-3.0 24591-6) VANESSA (test code = VANESSA) [employer] ID - [id number] Lab Interpretation (test Normal code = 98414-7) [facility] 05:01:15 Test Item Value Reference Range Interpretation Comments Magnesium (test code = 1.7 mg/dL 1.5-3.0 35736-3) VANESSA (test code = VANESSA) [employer] Developer ID - [id number] Lab Interpretation (test Normal code = 75505-3) [facility]2022-[facility]-22 05:01:15 Test Item Value Reference Range Interpretation Comments MAGNESIUM (BEAKER) (test code = 1.7 mg/dL 1.5-3.0 627) [employer] ID - [id number] 01:58:09 Test Item Value Reference Range Interpretation Comments POC-GLUCOSE METER 98 mg/dL 70-110 : TESTED A T [facility] [address] (BEAKER) (test code = [facility] [address] [facility], 1538) [facility] 77 384: Net Sql Developer/Techni yuly ID = [id number] for P once, Arley POCT-GLUCOSE [id number] 15:57:07 Test Item Value Reference Range Interpretation Comments POC-GLUCOSE METER 76 mg/dL 70-110 : TESTED A T [facility] [address] (BEAKER) (test code = [facility], 1537) [place] [address] 384: Net [employer] Developer/Techni yuly ID = [id number] for Naima Guillen Sputum Culture + Gram [id number] 12:26:30 Test Item Value Reference Range Interpretation Comments Result (test code = 1+ Normal respiratory 6463-4) gayle present Gram Stain Result No organisms seen (test code = 1123) [facility] [id number] 12:26:30 Test Item Value Reference Range Interpretation Comments Result (test code = 1+ Normal respiratory 6463-4) gayle present Gram Stain Result No organisms seen (test code = 1123) [facility]AM [id number] 12:26:30 Test Item Value Reference Range Interpretation Comments CULTURE (BEAKER) 1+ Normal respiratory (test code = 1095) gayle present GRAM STAIN RESULT <1+ White blood cells (BEAKER) (test code = seen 1123) GRAM STAIN RESULT 0-5 epithelial cells (BEAKER) (test code = 59803) GRAM STAIN RESULT No organisms seen (BEAKER) (test code = 38327) Urine [id number] 12:24:32 Test Item Value Reference Range Interpretation Comments Result (test code = 6463-4) No growth [facility] [id number] 12:24:32 Test Item Value Reference Range Interpretation Comments Result (test code = 6463-4) No growth [facility] [id number] 11:48:35 Test Item Value Reference Range Interpretation Comments POC-GLUCOSE METER 87 mg/dL 70-110 : TESTED A T [facility] [address] (BEAKER) (test code = [facility], 1537) [place] [address] 384: Net Sql Developer/Techni yuly ID = [id number] for Naima Guillen POCT-GLUCOSE [id number] 06:17:12 Test Item Value Reference Range Interpretation Comments POC-GLUCOSE METER 114 mg/dL 70-110 H : TESTED A T [facility] [address] (BEAKER) (test code [facility] [address] [facility], = 1538) [facility] 77 384: Net Sql Developer/Techni yuly ID = [id number] for Jyoti Caceres Comprehensive metabolic [id number] 05:34:39 Test Item Value Reference Range Interpretation Comments Protein, Total (test 5.3 See_Comment L [Autom ated code = 2885-2) message] The system which generated this result transmit nicol reference range : 6.0 - 8.5 gm/dL . The reference range was not u sed to interpret th is result as normal/abnormal . Albumin (test code = 3.0 g/dL 3.5-5.0 L 51326-1) Alkaline Phosphatase 43 U/L 30-115 (test code = 6768-6) Total Bilirubin (test 0.5 mg/dL 0.1-1.3 code = 1975-2) Sodium (test code = 139 meq/L 176-353 9003-2) Potassium (test code 3.5 meq/L 3.5-5.5 = 2823-3) Chloride (test code = 108 meq/L 98-106 H 2075-0) CO2 (test code = 24 meq/L 20-31 2028-9) BUN (test code = 9 mg/dL 10-26 L 3094-0) Creatinine (test code 0.59 mg/dL 0.50-1.20 = 2160-0) Glucose (test code = 106 mg/dL 70-110 2345-7) Calcium (test code = 8.3 mg/dL 8.5-10.5 L 08935-9) AST (test code = 19 U/L 5-40 1920-8) ALT (test code = 16 U/L 6-50 1742-6) EGFR (test code = 140 mL/min/1.73 [place] [address]-0) NOT ACCURATE CREATININE CLEARANCE IN PREDICTING GLOMERULAR FILTRATION RATE . ESTIMATED GFR I S NOT APPLICABLE FOR DIALYSIS PATIEN VANESSA (test code = VANESSA) Net Sql Developer ID - [id number] Lab Interpretation Abnormal (test code = 46511-6) [facility] [id number] 05:34:39 Test Item Value Reference Range Interpretation Comments Protein, Total (test 5.3 See_Comment L [Autom ated code = 2885-2) message] The system which generated this result transmit nicol reference range : 6.0 - 8.5 gm/dL . The reference range was not u sed to interpret th is result as normal/abnormal . Albumin (test code = 3.0 g/dL 3.5-5.0 L 38438-4) Alkaline Phosphatase 43 U/L 30-115 (test code = 6768-6) Total Bilirubin (test 0.5 mg/dL 0.1-1.3 code = 1974-2) Sodium (test code = 139 meq/L 871-754 4324-2) Potassium (test code 3.5 meq/L 3.5-5.5 = 2823-3) Chloride (test code = 108 meq/L 98-106 H 2075-0) CO2 (test code = 24 meq/L 20-31 2028-9) BUN (test code = 9 mg/dL 10-26 L 3094-0) Creatinine (test code 0.59 mg/dL 0.50-1.20 = 2160-0) Glucose (test code = 106 mg/dL 70-110 2345-7) Calcium (test code = 8.3 mg/dL 8.5-10.5 L 00994-9) AST (test code = 19 U/L 5-40 1920-8) ALT (test code = 16 U/L 6-50 1742-6) EGFR (test code = 140 mL/min/1.73 [place] [address]-7) NOT ACCURATE CREATININE CLEARANCE IN PREDICTING GLOMERULAR FILTRATION RATE . ESTIMATED GFR I S NOT APPLICABLE FOR DIALYSIS PATIEN TS. VANESSA (test code = VANESSA) Net Sql Developer ID - [id number] Lab Interpretation Abnormal (test code = 28247-6) [facility] CenterCOMPREHENSIVE METABOLIC [id number] 05:34:39 Test Item Value Reference Range Interpretation Comments TOTAL PROTEIN 5.3 gm/dL 6.0-8.5 L (BEAKER) (test code = 770) ALBUMIN (BEAKER) 3.0 g/dL 3.5-5.0 L (test code = 1145) ALKALINE PHOSPHATASE 43 U/L 30-115 (BEAKER) (test code = 346) BILIRUBIN TOTAL 0.5 mg/dL 0.1-1.3 (BEAKER) (test code = 377) SODIUM (BEAKER) (test 139 meq/L 135-148 code = 381) POTASSIUM (BEAKER) 3.5 meq/L 3.5-5.5 (test code = 379) CHLORIDE (BEAKER) 108 meq/L 98-106 H (test code = 382) CO2 (BEAKER) (test 24 meq/L 20-31 code = 355) BLOOD UREA NITROGEN 9 mg/dL 10-26 L (BEAKER) (test code = 354) CREATININE (BEAKER) 0.59 mg/dL 0.50-1.20 (test code = 358) GLUCOSE RANDOM 106 mg/dL 70-110 (BEAKER) (test code = 652) CALCIUM (BEAKER) 8.3 mg/dL 8.5-10.5 L (test code = 697) AST (SGOT) (BEAKER) 19 U/L 5-40 (test code = 353) ALT (SGPT) (BEAKER) 16 U/L 6-50 (test code = 347) EGFR (BEAKER) (test 140 ESTIMATE D GFR IS code = 1092) mL/min/1.73 sq NOT ACCURA TE m CREATININE CLEARANCE IN PREDICTING GLOMERULAR FILTRATION RATE . ESTIMATED GFR I S NOT APPLICABLE FOR DIALYSIS PATIEN TS. Net Sql Developer ID - [id number] 05:34:39 Test Item Value Reference Range Interpretation Comments PHOSPHORUS (BEAKER) (test code = 2.4 mg/dL 2.5-4.5 L 604) Net Sql Developer ID - [id number] 05:34:38 Test Item Value Reference Range Interpretation Comments MAGNESIUM (BEAKER) (test code = 1.8 mg/dL 1.5-3.0 627) Net Sql Developer ID - [id number] W/PLT COUNT & AUTO [id number] 05:01:08 Test Item Value Reference Range Interpretation Comments WHITE BLOOD CELL COUNT (BEAKER) 7.5 K/ L 4.0-10.0 (test code = 775) RED BLOOD CELL COUNT (BEAKER) 2.92 M/ L 4.20-5.80 L (test code = 761) HEMOGLOBIN (BEAKER) (test code = 9.5 GM/DL 13.0-16.8 L 410) HEMATOCRIT (BEAKER) (test code = 28.5 % 36.0-50.0 L 411) MEAN CORPUSCULAR VOLUME (BEAKER) 97.6 fL 82.0-99.0 (test code = 753) MEAN CORPUSCULAR HEMOGLOBIN 32.5 pg 27.0-33.0 (BEAKER) (test code = 751) MEAN CORPUSCULAR HEMOGLOBIN CONC 33.3 GM/DL 32.0-36.0 (BEAKER) (test code = 752) RED CELL DISTRIBUTION WIDTH 13.2 % 12.0-15.0 (BEAKER) (test code = 412) PLATELET COUNT (BEAKER) (test 172 K/CU MM 150-430 code = 756) MEAN PLATELET VOLUME (BEAKER) 10.5 fL 6.0-11.5 (test code = 754) NUCLEATED RED BLOOD CELLS 0 /100 WBC 0-0 (BEAKER) (test code = 413) NEUTROPHILS RELATIVE PERCENT 72 % (BEAKER) (test code = 429) LYMPHOCYTES RELATIVE PERCENT 16 % (BEAKER) (test code = 430) MONOCYTES RELATIVE PERCENT 9 % (BEAKER) (test code = 431) EOSINOPHILS RELATIVE PERCENT 2 % (BEAKER) (test code = 432) BASOPHILS RELATIVE PERCENT 0 % (BEAKER) (test code = 437) NEUTROPHILS ABSOLUTE COUNT 5.42 K/ L 1.80-8.00 (BEAKER) (test code = 670) LYMPHOCYTES ABSOLUTE COUNT 1.22 K/ L 1.48-4.50 L (BEAKER) (test code = 414) MONOCYTES ABSOLUTE COUNT (BEAKER) 0.67 K/ L 0.00-1.30 (test code = 415) EOSINOPHILS ABSOLUTE COUNT 0.16 K/ L 0.00-0.50 (BEAKER) (test code = 416) BASOPHILS ABSOLUTE COUNT (BEAKER) 0.02 K/ L 0.00-0.20 (test code = 417) IMMATURE GRANULOCYTES-RELATIVE 0 % 0-0 PERCENT (BEAKER) (test code = 2801) POCT-GLUCOSE [id number] 00:07:28 Test Item Value Reference Range Interpretation Comments POC-GLUCOSE METER 103 mg/dL 70-110 : TESTED A [facility] [address] (BEAKER) (test code [facility], = 1538) [place] [address] 384: Net Sql Developer/Techni yuly ID = [id number] for Jyoti Caceres POCT-GLUCOSE [id number] 17:25:47 Test Item Value Reference Range Interpretation Comments POC-GLUCOSE METER 107 mg/dL 70-110 : TESTED A T [facility] [address] (BEAKER) (test code [facility], = 1538) [facility] 77 384: Net Sql Developer/Techni yuly ID = [id number] for B ciro, Marlen Tissue [id number] 12:51:59 Test Item Value Reference Range Interpretation Comments Case Report (test code Surgical Pathology = 104) Report Case: [id number] Authorizing Provider: Gerardo Patel MD Collected: 03/30/2021 03:53 PM Ordering Location: [facility] - [facility] Received: 03/31/2021 07:24 AM Services Pathologist: Anderson Martinez MD Specimen: Small Bowel, NOS DIAGNOSIS (test code = [id number] 3220) uZzEwMzNcZnRuYmpcdWMxIH tccnRmMVxlcGljOTYwMVxhb uZnLQKngMLnU8GoovcsIJrv VB3xRI6sdSduaOPxfQItFVV oIiHfn7oxl067hLWbk2qrGZ EAvlrjcDk3kJoaQ73tn8J0G bbnI46hpRCuTUE7CYDjTWWk kIKpPMQhLOL5HTApbJRmL7i iZOJcHF8ivatjKInbZFnxHF SprGW0YOMtmBHsC1QoNVOjY VaeGQUfuvt7ZoUfHo6bbIJv eTcyMFxwYXJkXHBsYWluXGZ mGcRsV23NWTbyLT5HRDFJNJ 2UDLLQNRNDYLKVDFSHN7HAG CiWYoutjQUnEQ0jW63ARMdg PO1YLYKIXS7JHNaOGXjvCSR SW5PHFQRMDNKFGrEbWdJUFi 6UMQDnW09CW2wLXLLSHBlqL YIrVMDqMPTRHYMDGUfVB0wW ILqUUL7WY8RJD4uWHVXezxK gMR0LDF8CIEuTDfRPJ3weOL OEDvOWPhtWGSpxYFH4h4pen GYxXHNzdGUxODAwMFxhbnNp GNCePcsauawtCKYbTRG9iuW lBMGpYZtwEFWpYOomJk2dmN BbkRwnMfNiYXKrk3fitzKEs xbpmEm9o9rcBIUeUsN3rRSo VQbiA5ehgkZyuQSzFEPsICe 3pP57IWZhbS9qwGYaAJinqt GvEaR2IHvcTSZyQsO5FOBhx CUvJBGuX3waZOMmLSqtRULb OCuutMCiHMQ9jOarb9N4lRN zaGVldHtcZjBcZnMyMiBOb3 HiERi8eHxbO6NaEIGtRrK8f HQgUGFyYWdyYXBoIEZvbnQ7 qD04IYcvsuT7eEPoo7Weq75 py401fX5khJFpFVE8CWOsGV YqsSWpHSXeVGY1GJMtfLXvY 7hbCYWmER3buhpkVVygJRsg OZDflWJ9ZWBueEEmZ8DvULK dEKshKDKbpgz7LeCjMk6qvE AfzWptWVhze5tof8uwmQKcV dh6EUNsJuBaOrxxOBybp3El v4qaABZlnv8pVFN2gRWcmGq xz3G8gLHcRWEsmKBuGJZmNM 4pmMWaCQGreD6zqzroOSDuR mImomdjIPRmsYtaisLmHa5m oHmiUKZ1PJkdE8tpsP0iDaQ 2PYruW8ywiF3rDRu5MWonGT BtdZO7dxQ7XJQlhNUrD1Pjm V4aMOMrVA3iplk9i3wiFLG4 MGndMLEeKgL6grE8HUNarPZ cBELkzBuuXYgjb651HLI1Ur UzYDByb7TfN7MroPpwT57sv NwwV79xVRUhbCabzF9uaPtg cL7xTcAoArAaDUinlXzcGN9 iZMZvN1mzmRUlORUxQTSsL0 hgZsFyaL1eoBoaVZboeuFdU MAsTdb6QCRchYUgAHQsRpp8 TIHfNUAsM54jppouXKT4hZ9 tc0qqv7MqHXduYYF1ZGUva0 3bJJpvpqJ6ZXfkSl6kYkVlG SR7GYmnVZU6lX== CPT Code(s) (test code s3hwhOYbEKXuqYR2EbRwRPO = 3357) gs9vqa6JwjFGpcWRkIAtniJ JtgiYygx21nAL7iW49DB2rV RFuAgE7KPDltkV2Wrk4VRAl YDCjvQPzX531d9wrx3lfvqP nrCW3aOlqFRZetysrClS1LV zxFWBxhdhfWCm0ZCvdWUUac UU0AFCpuXBgU7CoOASeMT3y ufi4SFM7VSckZCIlPzK7RBT tlNPfXVWyhMrxPAjas708MF O0QiAwQVSyyuGmsVlwaB8pZ xXzFTT5KBGyK1wqTNI2 CLINICAL HISTORY (test p4fnlRObJAYfjZK1LfXgNBA code = 3356) ug1sat8LrpGKygQOeTFeyxN KhjdUxmp15qBZ4pD58QB2aN XOzUjK1EZYphzX4Ojq6MUHw ATQmzLDoL337j6wtt6ileaN lnHK4dXriXRGxiguqOvC5TA hkKINbnqaoGHu1DWvyKVNcv FU9ZPEleSVtS3XuPWOsEE9x dcx5MPD5KWrtPQEpKkX9KCM gvHOmHOCgnVobTKhpi163CK J2GbVlJSYgybMdlDzanP2cF bBdFPHMbXAuqH7st3fxnJNv EtI5wzLljUsvym1bRJIxJ2F rmUNrQNH3uGtdekH4r0Y1DV qizPTzp0DmhLnyaQUxmI== SPECIMEN SOURCE (test q8djjFHnNEZweVY1VyYhJLL code = 3377) vd2pxw2FilAXfmFWaFDuxoC CabeIfnp01sLO6rM66UK3rD DIpDaG9IDZezuG3Zio3GBYp RADpkBNtV900j5uqo4qjheG xkOP0sGwtBFQfuijtHqE9IW kmDHHrsmwyXPc6FIdcWMDxb FH0MRPqrAIdR0ZrYDQlBR3j ype7QKT9SAolYILiDwG5GFS ppJXbJJCzfHhuCLpbz679MJ M9OmBwPVSdnoPstUmmzY6cJ nAmJDCMbABahQNtl9ikkCUB K3MziNRofE== GROSS DESCRIPTION s7jgsOToVSQycRI2KzRnPAC (test code = 3366) zq7cgb7BbkVHpkSQsQJlzuG XjefXkqw24bKO6bY26CV6kL CYuDgM8MJGmyzV5Ild7OJCb PXVvuFPfT453e4awz0zcjhS xqXV3zHktAVWalkcyJwK7YP tzSREzybdkUXh7SLdjOGAhu ON3LDEanMOuC0WpWENjGG6s nnz9FBI1OYsfBBKqYaI5ANM gsUPvIKYsjRjeVJwvi515MF P4KmEbZPNqpbAfmHdqxG8dJ nUkTBHJuFXqgZ7mdLB6gGVy bKushGZcZEV1j3RfUGMrq51 0YWluZXIsIGFuZCBjYXNzZX J4YOQnMZpmRDUcXTFfIUFeV 8BtCe0xWDYjPNNsxjywGDAg DpDhHTz7ZERqdJ4xLa4anZN hfC4xlCDsVWglPMD4kERqEU GmDYNrJTRoTH37S5WajgYpY SAoTWNLZWUpIGFuZCBtZWRp M4LkJAEyF34wVVUuaP1lTHL eHQUambuaAIVzY1RaW3yiVQ 4cFOdvShArVEh8LCWkhR8kS o9wcQYqfX5ykNZmIJanZVHh ymJjl42pnZqkXt35XFchIUt pNTQeOWZvv2coKoQiz37ja9 VnbWVudCBvZiBzbWFsbCBib 3dlbCBtZWFzdXJpbmcgNzkg U26nnS9nbFEdM3GwGEtgoQl eYAIdkuLfGNMoaUAkrC9rDO UefgNgddVoDU2gaM1kWTEql 45mJr98CQHwENRuIQPwXLNf DxJmuG3tCNcfejCbmMGwEEW zdGFwbGUgbGluZSBhdCBlYW JeUHMlBLXoFbT6zGEwv7IvT 5ciMY4kCF1tLM5jsMDkfSB0 eK5dPXumBV3gzROmAlJYzZM pCN5mdeCdhPRjJDRbtsxuOa gaFNwpl5ZdvEpoPKUfLBAyN RbxWKWma3bxb1DxROEmUTRj Ei8eZAGrOOHks25ld61jTJ7 ajvxmxq2aWYbsQENlps7vPE ooz9UxTdVgPSAhZSJoSTJ9t 7u0IDMfz9sjLCugsNlzQKUo LZhsOepqhl41pjDhILzbo6g cqlJfOI6rKDF4ofSvXL74VZ L7tGPixWZsrXVtym04LBRiP MQfJQOdxILta3RfHKM2adJw G3VnERDoYKTrBNWeNwPld70 iGS3gPXkobJ9slaqpQ0yrRq BPjqFzpYIzuiK6YOPyTPPyY NDvd6HkdD2gzMUtJPAqYIEn w4VoIO0tFaSralAilxEiYU8 bMGM6jXFoJLDqmpNjuyI6iX CdisB0KEZmKCGeCMqcc8ixG 4dvqAWbt4HxYMGiDw55GCsc Ct96RCFvBaQRpXTrp7IliVG fDfA0iRFpUn26ZNphfJ6vmA cktlXsroZtAZ8sKUE9nlOkW SFfIVVgvH3pGYiaLIlygExu h9YrzNqjKVMbu9OyWQvpBK3 0aGVyIGFyZWFzIHJhbmdlcy Oqjt5mGLNxIaB2seGzVwXiS 34wAWSrH0Wim15ncrufcrA8 ZWFscyBubyBvdGhlciBtYXN xSSXcKLRlovepYTWoV81jGK HyEwBmCIC3xD7vxoxkRZIaA CMzq4vhnUTaXHQpNJZqxOA7 WPoxzEUuD6cvtsxiKMKhWRL sZBZwAPH7gP4oztIehm5lOL PpgY1zPVAyDBJwGExfUOXbE BS5ZZOqKPE3dA3cwtPlkq5k VWBxCIO0hSSudwQ1DXNnDDO rHDahLDKxRAFuNREzMU7mj0 3qk6WirUamcuDlr7CxYl95R FuiNXbZG9F9BEhiWEI9 [facility] CenterTissue [id number] 12:51:59 Test Item Value Reference Range Interpretation Comments Case Report (test code Surgical Pathology = 104) Report Case: [id number] Authorizing Provider: Gerardo Patel MD Collected: 03/30/2021 03:53 PM Ordering Location: [facility] - Perioperative Received: 03/31/2021 07:24 AM Services Pathologist: Anderson Martinez MD Specimen: Small Bowel, NOS DIAGNOSIS (test code = [id number] 3220) uZzEwMzNcZnRuYmpcdWMxIH tccnRmMVxlcGljOTYwMVxhb dKmXFOjeLOsI5BinuizNTtm RU4kNT1elQaaaTDykOTgNOE mWhGnh3fxy252mSYfo8srEV PRawwzdFq1nPpyP28ml8G4K snhK42dqNWpPZQ9LVCsJDPm tUPhTLYmYIA1UVCmbYKjF5h wOAScRS7ydjbzIVbvWUklTA OnmFS1TYNsbNFxM5XnCFNuJ ZakRAPxqdl2ErIaLq7qdSHh eTcyMFxwYXJkXHBsYWluXGZ gTsReH11HFVqwTG9NBQWSKG 7PHENEFAMNGZDMOUPPF9SMU RqEDdbmwLJpGP9bA00UIFfe NL5SKUBEVX3DKIuYUHcuRQZ AV0BUDBEEXSZIVuYhCgRGJc 7JQDNcX45NS6cSDGRABBxrQ RGuJWZgQDSFAASTQCbIV0wK ADkODB6EX3UHR7gOJBSmnaY jXH7HOU0TYEhCIkRYS7krMA SSJnRFKkxSBOfzNII6v5uul GYxXHNzdGUxODAwMFxhbnNp XLRjMnbthmztZICsNMC2ljN gXVXiKQcdARYyZRdhNm2noS TkoLtgJnUcBDBhq4wxpiTFj hqoiDt1c3agOACoNqN6tBXe NXpfN2hrbsGiaBFpULRqLEu 3rJ78XGVepV5qxAJlVWznso DwVgV7AVbvAGFkHgF6AUToh NDzDBGxJ3aoQQWpERafJSQu PNijxEJbOAT7gTcug5V9wOO zaGVldHtcZjBcZnMyMiBOb3 FcVUw4eDqcO0BuONPnEuC6f HQgUGFyYWdyYXBoIEZvbnQ7 yN68CMbxvpA3bZPen2Isa37 vg861aC0lxQPcLNI0DTGgQT OajIGqANVbFFD4VXGtaXOkT 5xvTGWeDI5fynloNSinQMhv MXPsuVB5WKUcrDPcC1HkNAV nQVeqMCCallg0QdSpXb5moW VrmIdaUMxqk8cea9pzbLKnQ jk4WZJgSyGuQldgPMlvg5Wf p4itWWZuvv6jTWO3qDGdaOc eh3W8xESyDCYmsRCtAUOeZO 9poQTtCAIinR8duffoYBWgE gIerokyRBMqmHefblOjKs7v lOfkWIG7LYouB1hogP7qEmK 0OAwnZ4lovF5oPXa2MEsiAT JbbIN3bxG4OYVtzHUxQ9Qyj A1uEMIwWO2alxv0i4avPNJ7 XJqpCBNrFsA2dkZ4KGRegDI vWWKheLbrAQyyp011CXD8Ig GpVLBzf8OkN0BsoMbkR94ve UomC38sXVYqbEpmtH8mvEqb pO5aZyLhFwTyVGwodNdtYE9 cUIYuS0ecvYJlQVFcLUJlU3 esMeVufE6tgYxmHSvjvfRcD UEwIfa2AUQjuJMiLSRwFsz3 EIEtVQGiP30dsbfyUIZ8fZ7 hl0hmt5NyOInnBZX1ULZqe7 1zNIcgngO1BOvgMq3iGlNnB CV1WYgyBSX5uV== CPT Code(s) (test code t7skwOIeIKAnkQC9LfCwDJT = 3357) ca4lzm0UkaREwbZCtTHvtzF FkyuGcva26iVI4xZ81EK7mA CKeTeH8NSFghdF1Owp8IHKu CUOvbKNpO777v2yii3kudbP akGE9jKphZEYapggpObI0ER asLDIdkvqlLHi3EMmnPLSca EI0CGMfbCOyR1HqVEXlWT5x bcu6COV6WUfvEQZqMuY2FUK zfFSrANDbsOhvDLxgi193DS M1LeFcOORnwxZwuEynpT2yR kEjMYB2KOAhE3uxFEK1 CLINICAL HISTORY (test o9hkaJIsAVYuhQG7YzKqHZA code = 3356) di1xfz0OyiEYskXTnRLgpjF FmvpDyzg49tQJ7aO46RJ4vS XBeKvB9ZXAvvtO4Itc5IRIq TPGcvBPzS191g4pdd8pfkpJ efYJ7xDyiXUBjjqklWzZ7BB vcAEKfcljiQDg9WXqzWJXtg MR4CZOiwRIoY2KzADWhEO2k bay6GTR9MXtxFJMnGoU7HOE vaNFrNIKslEvxVJdpe468DG E1XqEvRWYxnzCndCrfgY4dJ lAuCUGMaWQywH1yx1zauFLj FwC6gkUmjQatfr9mUIBuP1L qsVVuYBR6mUbynrA7b6N5FG yyuCEpu3JwfTzviGQonC== SPECIMEN SOURCE (test y7qvcFNsUPTvbBN0ZzQqMHJ code = 3377) vc3qci2YoiSDskVXpTKbrcK ZbmgQhmq46wAR2bM59GR4dO QWtTsF0SIHsxlI9Bln8BUSt HLVotONrB603n7map8hrvfU uhVF4kKrrWBBllvhtJfD3MS huRGRejcjiYSb5XSprJTCoi ME2VWUgqOUyI4DsWGAhFW1g vwx1OLT5JVfzZJZrUkI8TTL qjHOoNRWfuWmwPQptb524ES F7UrAvCLJetgIwnOnzgK2dY fLvTCIXpJQlgTEty4cqaYXI R1RygQOkwL== GROSS DESCRIPTION f8sngWTeYWSesFN8OgBbCDM (test code = 3366) jx1vtt0OchTAmkOAvLBszxT DlttHxnj66uIQ6kR88MD8yU MMuEoT6KGEbvrB5Pho1FEBn SGPrmSVaV162y7uik1djcnM weHT9aPngICVgrfyqHuR7ZX fsRPHsdgufBJi5CDohIQZjr IY9KZZesDRxA1CsFZLrMI0a rba2XAA4JZnrHXLtCfZ8FSZ ogUShLCExeThyTHwww440XZ D6XgTfTWXtufKhhFpfaL5eL sZeVTJAwQKqrB0qfPQ4aTXs gPzjcJIxRDP4y1DwKXHop49 0YWluZXIsIGFuZCBjYXNzZX T0GRQhVBqyMIKxOBYpTWUbK 9JtCt4gYWLhONRwdulpQHTt DpKwQLe9YMOnrE5bQx4amTY lfO0rxEBfYKdhJEI7oKAbOE ToBIXkUTHhGH21P1YihnQjE SAoTWNLZWUpIGFuZCBtZWRp X6LoYRNbY08gCPNawL5pEBZ lNQHyxgytZWBkN2BxF1pgJL 2eYXubMqSkLBy3JFFmdH7fK o0icAPdjM1vuRGoLFcjQUGy aaOaw80ddVcgGq41FYczMHu kFWKnECUoq8knHhRvz79kl1 VnbWVudCBvZiBzbWFsbCBib 3dlbCBtZWFzdXJpbmcgNzkg N83csG6ihXQhC1JdCAainJi wQCWlbsSzYCYzeZOwjO7uVU TlwmFnapIhFO0zxG1bOEJlp 89lQh32GNDoFLNmUFHjEVPu NeVqpA6zPFrlqqTouIMrPEG zdGFwbGUgbGluZSBhdCBlYW FiOMHnNKHnLyT9kKBki5XcW 1plQC2vZN6wPW6bbQVraZU7 vM5nSFpgBO5roUOgTzLOqUO aBV3bynXuzFCwUHBabrwqJb hdBYneg4GfjGdbSVHkJSIjN LqiQCMie1xyi8QkJDDxCRAm Ur0pTDKcVTHwt72lw43lVY5 djpezed5oMFjkCBRemb3zHM oyu4IqXcGnJVLeJAHjOOS5g 7c1FWQax6gmHAgzxTppFFBr HRkiKikfbb57evFuJBkyu9l pmyNsUQ3mSTV3crGrDR22OS K3uOEngCQfuXZvuj55ONTrL MTsRJKyjWKhc2YeHPZ3idDv P5AfSXIjDJYuDMIaMyOtm26 fKO7dKUidzL3ejtqbW6trLm QKpvQnoGPcrkS9QZAgGXPcE WDmr3DwmA8hxPGuMCRjRTSe k9OoWM9dEcYtsxPpynPaIV4 hBGB8fAAlBBAniuBkjoZ0tR FzdtE1TJOpZHOrDNvrt8zgQ 1spcKOlg5McWSKqKi96AQme Qb20VVGqHtXEjRJqy9YdfGC iHlX1dFMyMl73TMfzoQ0jiX exzyCzjzGoHF4hWJB6rfTsQ ZPlNQScmW0bRGchTNehkSyz k9DhfKfpFWZom8HdQLutJZ0 0aGVyIGFyZWFzIHJhbmdlcy Ncpn7vMCYaNpZ8zbMxFdMsM 92gBQZkV3Fcj86urptwvnC6 ZWFscyBubyBvdGhlciBtYXN cHJZoTHItezesVTQaH10rTT LyPlYlGSC0hS3dydjpVXJsE LCbz9blpYJzYMWpIRNhoYS6 ADjxzLBtE8hklycoUOLkSBP bAOWvFFF7cK1rnsDbgw4nUW GofV7aSYYwTDZaOOflGSIvZ PI3AKXqMCZ5sB4cgxGulm3y KNDkYZD7hTEzrmA1JZVdJNB wARgzKQNdEWQpNFYmPV0yx3 3ej4HkhQxoabQvc2FuSi69D BsfQSbEC6P7TCwtAQH6 [facility] [id number] 12:51:59Surgical Pathology Report Case: [id number] Authorizing Provider: Gerardo Patel MD Collected: 03/30/2021 03:53 PM Ordering Location: [facility] - Perioperative Received: 03/31/2021 07:24 AM Services Pathologist: Anderson Martinez MD Specimen: Small Bowel, NOS SMALL INTESTINE, PARTIAL RESECTION:- SMALL INTESTINE WITH HEMORRHAGE AND NECROSIS CONSISTENT WITH ISCHEMIC NECROSIS- NO MALIGNANCY IDENTIFIED Signing Pathologist Direct Phone Line: [phone] signed by Anderson Martinez MD on 04/01/2021 at 12:51 [id number] obstruction. Procedure exploratory laparotomySmall bowel NOSThe instrument, paperwork, container, and cassettes all read as [id number].Received in formalin labeled with the patient's name (Leidy) and medical record number.Specimen A: Received in formalin labeled as "small bowel" is a dusky brown segment of small bowel measuring 79 cm in length with average circumferences ranging from 2.5 cm up to 4.7 cm. There is a staple line at each end of the specimen. No orientation is noted. The ends appear viable grossly. There is a kinked area 7.0 cm from one margin. The serosal surfaces are dusky brown with a few fibrous adhesions. No purulent exudate is noted. The mucosal surfaces are red-brown and hemorrhagic. No discrete masses or polyps are noted. Near one end, there is an ulcerated area, which measures 2.5 x 2.5 cm. The wall of the bowel in this area measures 0.1 cm. The wall of the bowel in other areas ranges from 0.3 to 0.5 cm. Sectioning reveals no other masses.Code of sections: A1, proximal and distal margins; A2, A3, sections from crimped area; A4, A5, sections from the ulcerated area; A6- A10, random sections of bowel. /ewPOCT-GLUCOSE [id number] 11:37:07 Test Item Value Reference Range Interpretation Comments POC-GLUCOSE METER 92 mg/dL 70-110 : TESTED A T [facility] [address] (BEAKER) (test code = [facility], 1538) [place] [address] 384: Net Sql Developer/Techni yuly ID = [id number] for Marlen Gomez COMPREHENSIVE METABOLIC [id number] 04:36:14 Test Item Value Reference Range Interpretation Comments TOTAL PROTEIN 5.0 gm/dL 6.0-8.5 L (BEAKER) (test code = 770) ALBUMIN (BEAKER) 2.9 g/dL 3.5-5.0 L (test code = 1145) ALKALINE PHOSPHATASE 42 U/L 30-115 (BEAKER) (test code = 346) BILIRUBIN TOTAL 0.9 mg/dL 0.1-1.3 (BEAKER) (test code = 377) SODIUM (BEAKER) (test 141 meq/L 135-148 code = 381) POTASSIUM (BEAKER) 3.6 meq/L 3.5-5.5 (test code = 379) CHLORIDE (BEAKER) 110 meq/L 98-106 H (test code = 382) CO2 (BEAKER) (test 24 meq/L 20-31 code = 355) BLOOD UREA NITROGEN 13 mg/dL 10-26 (BEAKER) (test code = 354) CREATININE (BEAKER) 0.67 mg/dL 0.50-1.20 (test code = 358) GLUCOSE RANDOM 109 mg/dL 70-110 (BEAKER) (test code = 652) CALCIUM (BEAKER) 7.9 mg/dL 8.5-10.5 L (test code = 697) AST (SGOT) (BEAKER) 21 U/L 5-40 (test code = 353) ALT (SGPT) (BEAKER) 14 U/L 6-50 (test code = 347) EGFR (BEAKER) (test 121 ESTIMATE D GFR IS code = 1092) mL/min/1.73 sq NOT ACCURA TE m CREATININE CLEARANCE IN PREDICTING GLOMERULAR FILTRATION RATE . ESTIMATED GFR I S NOT APPLICABLE FOR DIALYSIS PATIEN TS. Net Sql Developer ID - [id number] 04:35:21 Test Item Value Reference Range Interpretation Comments Triglycerides (test 109 mg/dL code = 2571-8) VANESSA (test code = VANESSA) TRIGLYCERIDE REFERENCE RANGELow Risk <150Borderline Risk 150-199High Risk 200-499Very High Risk >=500Operator ID - [id number] [facility] CenterLxigxkJfkvmlepygesm7482-41-79 04:35:21 Test Item Value Reference Range Interpretation Comments Triglycerides (test 109 mg/dL code = 2571-8) VANESSA (test code = VANESSA) TRIGLYCERIDE REFERENCE RANGELow Risk <150Borderline Risk 150-199High Risk 200-499Very High Risk >=500Operator ID - [id number] [facility] CenterBgnujdAMXIBEDAOVVIF4894-95-43 04:35:21 Test Item Value Reference Range Interpretation Comments TRIGLYCERIDES (BEAKER) (test code = 109 mg/dL 540) TRIGLYCERIDE REFERENCE RANGELow Risk <150Borderline Risk 150-199High Risk 200-499Very High Risk >=500Operator ID - [id number] 04:35:20 Test Item Value Reference Range Interpretation Comments MAGNESIUM (BEAKER) (test code = 2.0 mg/dL 1.5-3.0 627) Net Sql Developer ID - [id number] 04:35:20 Test Item Value Reference Range Interpretation Comments PHOSPHORUS (BEAKER) (test code = 1.8 mg/dL 2.5-4.5 L 604) Net Sql Developer ID - [id number] 04:03:58 Test Item Value Reference Range Interpretation Comments POC-GLUCOSE METER 101 mg/dL 70-110 : TESTED A T [facility] [address] (BEAKER) (test code [facility], = 1538) [facility] 77 384: Net Sql Developer/Techni yuly ID = [id number] for [place] CBC W/PLT COUNT & AUTO [id number] 04:01:29 Test Item Value Reference Range Interpretation Comments WHITE BLOOD CELL COUNT (BEAKER) 7.3 K/ L 4.0-10.0 (test code = 775) RED BLOOD CELL COUNT (BEAKER) 2.93 M/ L 4.20-5.80 L (test code = 761) HEMOGLOBIN (BEAKER) (test code = 9.6 GM/DL 13.0-16.8 L 410) HEMATOCRIT (BEAKER) (test code = 28.9 % 36.0-50.0 L 411) MEAN CORPUSCULAR VOLUME (BEAKER) 98.6 fL 82.0-99.0 (test code = 753) MEAN CORPUSCULAR HEMOGLOBIN 32.8 pg 27.0-33.0 (BEAKER) (test code = 751) MEAN CORPUSCULAR HEMOGLOBIN CONC 33.2 GM/DL 32.0-36.0 (BEAKER) (test code = 752) RED CELL DISTRIBUTION WIDTH 13.5 % 12.0-15.0 (BEAKER) (test code = 412) PLATELET COUNT (BEAKER) (test 154 K/CU MM 150-430 code = 756) MEAN PLATELET VOLUME (BEAKER) 10.4 fL 6.0-11.5 (test code = 754) NUCLEATED RED BLOOD CELLS 0 /100 WBC 0-0 (BEAKER) (test code = 413) NEUTROPHILS RELATIVE PERCENT 67 % (BEAKER) (test code = 429) LYMPHOCYTES RELATIVE PERCENT 17 % (BEAKER) (test code = 430) MONOCYTES RELATIVE PERCENT 13 % (BEAKER) (test code = 431) EOSINOPHILS RELATIVE PERCENT 2 % (BEAKER) (test code = 432) BASOPHILS RELATIVE PERCENT 0 % (BEAKER) (test code = 437) NEUTROPHILS ABSOLUTE COUNT 4.87 K/ L 1.80-8.00 (BEAKER) (test code = 670) LYMPHOCYTES ABSOLUTE COUNT 1.25 K/ L 1.48-4.50 L (BEAKER) (test code = 414) MONOCYTES ABSOLUTE COUNT (BEAKER) 0.98 K/ L 0.00-1.30 (test code = 415) EOSINOPHILS ABSOLUTE COUNT 0.14 K/ L 0.00-0.50 (BEAKER) (test code = 416) BASOPHILS ABSOLUTE COUNT (BEAKER) 0.02 K/ L 0.00-0.20 (test code = 417) IMMATURE GRANULOCYTES-RELATIVE 0 % 0-0 PERCENT (BEAKER) (test code = 2801) POCT-GLUCOSE [id number] 00:46:23 Test Item Value Reference Range Interpretation Comments POC-GLUCOSE METER 107 mg/dL 70-110 : TESTED A T [facility] [address] (BEAKER) (test code [facility], = 1538) [place] [address] 384: Net Sql Developer/Techni yuly ID = [id number] for [place] POCT-GLUCOSE [id number] 23:03:02 Test Item Value Reference Range Interpretation Comments POC-GLUCOSE METER 70 mg/dL 70-110 : TESTED A T [facility] [address] (BEAKER) (test code = [facility] [address] [facility] [address] [facility], [address]) [place] [address] 384: Net Sql Developer/Techni yuly ID = [id number] for [place] POCT-GLUCOSE [id number] 18:06:02 Test Item Value Reference Range Interpretation Comments POC-GLUCOSE METER 73 mg/dL 70-110 : TESTED A T [facility] [address] (BEAKER) (test code = [facility] [address] [facility] [address] [facility], 153) [place] [address] 384: Net Sql Developer/Techni yuly ID = [id number] for Shanon Chavez POCT-GLUCOSE [id number] 12:08:17 Test Item Value Reference Range Interpretation Comments POC-GLUCOSE METER 76 mg/dL 70-110 : TESTED A T [facility] [address] (BEAKER) (test code = [facility] [address] [facility] [address] [facility], 153) [place] [address] 384: Net Sql Developer/Techni yuly ID = [id number] for Shanon Chavez POCT-GLUCOSE [id number] 07:39:49 Test Item Value Reference Range Interpretation Comments POC-GLUCOSE METER 95 mg/dL 70-110 : TESTED A T [facility] [address] (BEAKER) (test code = [facility] [address] [facility] [address] [facility], 1537) [place] [address] 384: Net Sql Developer/Techni yuly ID = [id number] for Shanon Chavez COMPREHENSIVE METABOLIC [id number] 04:09:29 Test Item Value Reference Range Interpretation Comments TOTAL PROTEIN 5.3 gm/dL 6.0-8.5 L (BEAKER) (test code = 770) ALBUMIN (BEAKER) 3.2 g/dL 3.5-5.0 L (test code = 1145) ALKALINE PHOSPHATASE 37 U/L 30-115 (BEAKER) (test code = 346) BILIRUBIN TOTAL 0.7 mg/dL 0.1-1.3 (BEAKER) (test code = 377) SODIUM (BEAKER) (test 143 meq/L 135-148 code = 381) POTASSIUM (BEAKER) 4.1 meq/L 3.5-5.5 (test code = 379) CHLORIDE (BEAKER) 113 meq/L 98-106 H (test code = 382) CO2 (BEAKER) (test 19 meq/L 20-31 L code = 355) BLOOD UREA NITROGEN 28 mg/dL 10-26 H (BEAKER) (test code = 354) CREATININE (BEAKER) 0.82 mg/dL 0.50-1.20 (test code = 358) GLUCOSE RANDOM 106 mg/dL 70-110 (BEAKER) (test code = 652) CALCIUM (BEAKER) 7.8 mg/dL 8.5-10.5 L (test code = 697) AST (SGOT) (BEAKER) 16 U/L 5-40 (test code = 353) ALT (SGPT) (BEAKER) 14 U/L 6-50 (test code = 347) EGFR (BEAKER) (test 96 mL/min/1.73 ESTIMA NICOL GFR IS code = 1092) sq m NOT ACCURATE CREATININE CLEARANCE IN PREDICTING GLOMERULAR FILTRATION RATE . ESTIMATED GFR I S NOT APPLICABLE FOR DIALYSIS PATIEN TS. Net Sql Developer ID - [id number] 04:08:24 Test Item Value Reference Range Interpretation Comments MAGNESIUM (BEAKER) (test code = 1.9 mg/dL 1.5-3.0 627) Net Sql Developer ID - [id number] acid, [id number] 03:29:52 Test Item Value Reference Range Interpretation Comments Lactate, Venous (test 1.11 mmol/L 0.50-2.20 Specim en code = 2872) slightly hemolyzed VANESSA (test code = VANESSA) Net Sql Developer ID - [id number] Lab Interpretation Normal (test code = 72552-7) [facility] CenterLactic acid, [id number] 03:29:52 Test Item Value Reference Range Interpretation Comments Lactate, Venous (test 1.11 mmol/L 0.50-2.20 Specim en code = 2872) slightly hemolyzed VANESSA (test code = VANESSA) Net Sql Developer ID - [id number] Lab Interpretation Normal (test code = 81818-4) [facility] CenterLACTIC ACID, [id number] 03:29:52 Test Item Value Reference Range Interpretation Comments LACTATE BLOOD VENOUS 1.11 mmol/L 0.50-2.20 Specime n slightly (2) (BEAKER) (test hemolyzed code = 2872) Net Sql Developer ID - [id number] W/PLT COUNT & AUTO [id number] 03:29:39 Test Item Value Reference Range Interpretation Comments WHITE BLOOD CELL COUNT (BEAKER) 7.9 K/ L 4.0-10.0 (test code = 775) RED BLOOD CELL COUNT (BEAKER) 3.87 M/ L 4.20-5.80 L (test code = 761) HEMOGLOBIN (BEAKER) (test code = 12.5 GM/DL 13.0-16.8 L 410) HEMATOCRIT (BEAKER) (test code = 38.3 % 36.0-50.0 411) MEAN CORPUSCULAR VOLUME (BEAKER) 99.0 fL 82.0-99.0 (test code = 753) MEAN CORPUSCULAR HEMOGLOBIN 32.3 pg 27.0-33.0 (BEAKER) (test code = 751) MEAN CORPUSCULAR HEMOGLOBIN CONC 32.6 GM/DL 32.0-36.0 (BEAKER) (test code = 752) RED CELL DISTRIBUTION WIDTH 13.6 % 12.0-15.0 (BEAKER) (test code = 412) PLATELET COUNT (BEAKER) (test 194 K/CU MM 150-430 code = 756) MEAN PLATELET VOLUME (BEAKER) 10.4 fL 6.0-11.5 (test code = 754) NUCLEATED RED BLOOD CELLS 0 /100 WBC 0-0 (BEAKER) (test code = 413) NEUTROPHILS RELATIVE PERCENT 63 % (BEAKER) (test code = 429) LYMPHOCYTES RELATIVE PERCENT 21 % (BEAKER) (test code = 430) MONOCYTES RELATIVE PERCENT 14 % (BEAKER) (test code = 431) EOSINOPHILS RELATIVE PERCENT 2 % (BEAKER) (test code = 432) BASOPHILS RELATIVE PERCENT 1 % (BEAKER) (test code = 437) NEUTROPHILS ABSOLUTE COUNT 4.97 K/ L 1.80-8.00 (BEAKER) (test code = 670) LYMPHOCYTES ABSOLUTE COUNT 1.68 K/ L 1.48-4.50 (BEAKER) (test code = 414) MONOCYTES ABSOLUTE COUNT (BEAKER) 1.09 K/ L 0.00-1.30 (test code = 415) EOSINOPHILS ABSOLUTE COUNT 0.14 K/ L 0.00-0.50 (BEAKER) (test code = 416) BASOPHILS ABSOLUTE COUNT (BEAKER) 0.04 K/ L 0.00-0.20 (test code = 417) IMMATURE GRANULOCYTES-RELATIVE 0 % 0-0 PERCENT (BEAKER) (test code = 2801) Calcium, [id number] 03:12:02 Test Item Value Reference Range Interpretation Comments Calcium, Ion (test code = 1993-05) 1.02 mmol/L 1.12-1.27 L pH, Blood (test code = 06283-8) 7.40 Lab Interpretation (test code = Abnormal 40873-0) [facility] Center[facility], [id number] 03:12:02 Test Item Value Reference Range Interpretation Comments Calcium, Ion (test code = 1993-05) 1.02 mmol/L 1.12-1.27 L pH, Blood (test code = 46817-5) 7.40 Lab Interpretation (test code = Abnormal 61401-5) [facility], [id number] 03:12:02 Test Item Value Reference Range Interpretation Comments CALCIUM IONIZED (BEAKER) (test 1.02 mmol/L 1.12-1.27 L code = 698) PH, BLOOD (BEAKER) (test code = 7.40 1810) Blood gas, [id number] 03:09:43 Test Item Value Reference Range Interpretation Comments pH, Arterial (test code 7.36 7.35-7.45 = 2744-1) pCO2, Arterial (test 41 See_Comment [Autom ated code = 2018-) message] The system which generated this result transmitted reference range : 35 - 45 mm Hg. The reference range was not used to interpret this result as normal/abnormal . pO2, Arterial (test 129 See_Comment H [Automa nicol code = 2703-7) message] The system which generated this result transmitted reference range : 80 - 90 mm Hg. The reference range was not used to interpret this result as normal/abnormal . O2 Sat, Arterial (test 98.5 % 96.0-97.0 H code = 2708-6) HCO3, Arterial (test 23 mmol/L 21-29 code = 1960-4) Base Excess, Arterial -2.7 mmol/L -2.0-3.0 L (test code = 1925-7) Patient Temperature 37.0 (test code = 8310-5) FIO2 (test code = 1819) 35 Lab Interpretation Abnormal (test code = 88775-8) [facility] [id number] 03:09:43 Test Item Value Reference Range Interpretation Comments pH, Arterial (test code 7.36 7.35-7.45 = 2744-1) pCO2, Arterial (test 41 See_Comment [Autom ated code = 2019-8) message] The system which generated this result transmitted reference range : 35 - 45 mm Hg. The reference range was not used to interpret this result as normal/abnormal . pO2, Arterial (test 129 See_Comment H [Automa nicol code = 2703-7) message] The system which generated this result transmitted reference range : 80 - 90 mm Hg. The reference range was not used to interpret this result as normal/abnormal . O2 Sat, Arterial (test 98.5 % 96.0-97.0 H code = 2708-6) HCO3, Arterial (test 23 mmol/L 21-29 code = 1960-4) Base Excess, Arterial -2.7 mmol/L -2.0-3.0 L (test code = 1925-7) Patient Temperature 37.0 (test code = 8310-5) FIO2 (test code = 1819) 35 Lab Interpretation Abnormal (test code = 13750-7) [facility], [id number] 03:09:43 Test Item Value Reference Range Interpretation Comments PH ARTERIAL (BEAKER) (test code = 7.36 7.35-7.45 383) PCO2 ARTERIAL (BEAKER) (test code 41 mm Hg 35-45 = 384) PO2 ARTERIAL (BEAKER) (test code 129 mm Hg 80-90 H = 385) O2 SATURATION ARTERIAL (BEAKER) 98.5 % 96.0-97.0 H (test code = 386) HCO3 ARTERIAL (BEAKER) (test code 23 mmol/L 21-29 = 388) BASE EXCESS ARTERIAL (BEAKER) -2.7 mmol/L -2.0-3.0 L (test code = 387) PATIENT TEMPERATURE (BEAKER) 37.0 (test code = 1818) FIO2 (BEAKER) (test code = 1819) 35.0 Urinalysis w/Microscopic + Reflex to [id number] 02:22:14 Test Item Value Reference Range Interpretation Comments Color, UA (test code Yellow = 5778-6) Clarity, UA (test Clear code = 5767-9) Specific [place], UA 1.025 1.001-1.035 (test code = 5811-5) pH, UA (test code = 5.0 5.0-8.0 5803-2) Protein, UA (test Negative Negative code = 84421-8) Glucose, UA (test Negative Negative code = 365) Ketones, UA (test Negative Negative code = 2514-8) Bilirubin, UA (test Negative Negative code = 15369-0) Blood, UA (test code Small Negative A = 21085-1) Nitrite, UA (test Negative Negative code = 5802-4) Leukocytes, UA (test Small Negative A code = 5799-2) Urobilinogen, UA <1.0 0.2-1.0 (test code = 50966-9) RBC, UA (test code = 3 See_Comment [Autom ated 06515-2) message] The system which generated this result transmit nicol reference range : /HPF. The reference range was not used to interpret this result as normal/abnormal . WBC, UA (test code = 13 See_Comment [Autom ated 5821-4) message] The system which generated this result transmit nicol reference range : /HPF. The reference range was not used to interpret this result as normal/abnormal . Mucus (test code = Rare 8247-9) Specimen Source (test code = 2795) VANESSA (test code = VANESSA) Net Sql Developer ID - [auto]Net Sql Developer ID - tech Lab Interpretation Abnormal (test code = 77824-6) [facility]/Microscopic + Reflex to Culture 2021-03-31 02:22:14 Test Item Value Reference Range Interpretation Comments Color, UA (test code Yellow = 5778-6) Clarity, UA (test Clear code = 5767-9) Specific [place], UA 1.025 1.001-1.035 (test code = 5811-5) pH, UA (test code = 5.0 5.0-8.0 5803-2) Protein, UA (test Negative Negative code = 43058-4) Glucose, UA (test Negative Negative code = 365) Ketones, UA (test Negative Negative code = 2514-8) Bilirubin, UA (test Negative Negative code = 45389-2) Blood, UA (test code Small Negative A = 39630-5) Nitrite, UA (test Negative Negative code = 5802-4) Leukocytes, UA (test Small Negative A code = 5799-2) Urobilinogen, UA <1.0 0.2-1.0 (test code = 17757-5) RBC, UA (test code = 3 See_Comment [Autom ated 56098-0) message] The system which generated this result transmit nicol reference range : /HPF. The reference range was not used to interpret this result as normal/abnormal . WBC, UA (test code = 13 See_Comment [Autom ated 5821-4) message] The system which generated this result transmit nicol reference range : /HPF. The reference range was not used to interpret this result as normal/abnormal . Mucus (test code = Rare 8247-9) Specimen Source (test code = 2795) VANESSA (test code = VANESSA) [employer] Developer ID - [auto]Net Sql Developer ID - tech Lab Interpretation Abnormal (test code = 18712-8) [facility] REFLEX URINE [id number] 02:22:14 Test Item Value Reference Range Interpretation Comments COLOR (BEAKER) (test code = 470) Yellow CLARITY (BEAKER) (test code = 469) Clear SPECIFIC GRAVITY UA (BEAKER) (test 1.025 1.001-1.035 code = 468) PH UA (BEAKER) (test code = 467) 5.0 5.0-8.0 PROTEIN UA (BEAKER) (test code = Negative Negative 464) GLUCOSE UA (BEAKER) (test code = Negative Negative 365) KETONES UA (BEAKER) (test code = Negative Negative 371) BILIRUBIN UA (BEAKER) (test code = Negative Negative 462) BLOOD UA (BEAKER) (test code = 461) Small Negative A NITRITE UA (BEAKER) (test code = Negative Negative 465) LEUKOCYTE ESTERASE UA (BEAKER) (test Small Negative A code = 466) UROBILINOGEN UA (BEAKER) (test code < mg/dL 0.2-1.0 = 463) RBC UA (BEAKER) (test code = 519) 3 /HPF WBC UA (BEAKER) (test code = 520) 13 /HPF MUCUS (BEAKER) (test code = 1574) Rare SOURCE(BEAKER) (test code = 2796) [employer] Developer ID - [auto]Net Sql Developer ID - techPOCT-GLUCOSE [id number] 00:17:42 Test Item Value Reference Range Interpretation Comments POC-GLUCOSE METER 97 mg/dL 70-110 : TESTED A T [facility] [address] (BEAKER) (test code = [facility], 1538) [facility] [address]: Net Sql Developer/Techni yuly ID = [id number] for Aye Paul BLOOD GAS, [id number] 20:36:32 Test Item Value Reference Range Interpretation Comments PH ARTERIAL (BEAKER) (test code = 7.32 7.35-7.45 L 383) PCO2 ARTERIAL (BEAKER) (test code 42 mm Hg 35-45 = 384) PO2 ARTERIAL (BEAKER) (test code 155 mm Hg 80-90 H = 385) O2 SATURATION ARTERIAL (BEAKER) 98.8 % 96.0-97.0 H (test code = 386) HCO3 ARTERIAL (BEAKER) (test code 21 mmol/L 21-29 = 388) BASE EXCESS ARTERIAL (BEAKER) -5.0 mmol/L -2.0-3.0 L (test code = 387) PATIENT TEMPERATURE (BEAKER) 38.0 (test code = 1818) FIO2 (BEAKER) (test code = 1819) 50.0 Manual [id number] 19:09:04 Test Item Value Reference Range Interpretation Comments % Neutros (manual) (test 72 % code = 1359) % Lymphs (manual) (test 14 % code = 1360) % Monos (manual) (test 7 % code = 1361) % Bands (manual) (test 6 % 0-10 code = 1348) % Atypical Lymphs (test 1 % 0-0 H code = 260) # Neutros (manual) (test 8.86 See_Comment H [A utomated message] code = 1365) The system [employer] generated this result transmitted ref erence range: 1.80 - 8 .00 K/L. The refe rence range was not u sed to interpret this result as normal/abnor mal. # Lymphs (manual) (test 1.72 See_Comment [Au tomated message] code = 1366) The system [employer] generated this result transmitted ref erence range: 1.48 - 4 .50 K/L. The refe rence range was not u sed to interpret this result as normal/abnor mal. # Monos (manual) (test 0.86 See_Comment [Aut omated message] code = 1367) The system [employer] generated this result transmitted ref erence range: 0.00 - 1 .30 K/L. The refe rence range was not u sed to interpret this result as normal/abnor mal. # Bands (manual) (test 0.7 See_Comment [Aut omated message] code = 1349) The system [employer] generated this result transmitted ref erence range: 0.0 - 0. 8 K/L. The refe rence range was not u sed to interpret this result as normal/abnor mal. # Atypical Lymphs (test 0.12 See_Comment H [Au tomated message] code = 263) The system [employer] generated this result transmitted ref erence range: 0.00 - 0 .00 K/L. The refe rence range was not u sed to interpret this result as normal/abnor mal. Total Counted (test code 100 = 1351) Bands plus Segmented 9.59 Neutrophils (test code = 1352) WBC Morphology (test Normal code = 487) Platelet Morphology Normal (test code = 486) RBC Morphology (test Normal code = 762) Lab Interpretation (test Abnormal code = 04346-7) [facility] [id number] 19:09:04 Test Item Value Reference Range Interpretation Comments % Neutros (manual) (test 72 % code = 1359) % Lymphs (manual) (test 14 % code = 1360) % Monos (manual) (test 7 % code = 1361) % Bands (manual) (test 6 % 0-10 code = 1348) % Atypical Lymphs (test 1 % 0-0 H code = 260) # Neutros (manual) (test 8.86 See_Comment H [A utomated message] code = 1365) The system [employer] generated this result transmitted ref erence range: 1.80 - 8 .00 K/L. The refe rence range was not u sed to interpret this result as normal/abnor mal. # Lymphs (manual) (test 1.72 See_Comment [Au tomated message] code = 1366) The system [employer] generated this result transmitted ref erence range: 1.48 - 4 .50 K/L. The refe rence range was not u sed to interpret this result as normal/abnor mal. # Monos (manual) (test 0.86 See_Comment [Aut omated message] code = 1367) The system [employer] generated this result transmitted ref erence range: 0.00 - 1 .30 K/L. The refe rence range was not u sed to interpret this result as normal/abnor mal. # Bands (manual) (test 0.7 See_Comment [Aut omated message] code = 1349) The system [employer] generated this result transmitted ref erence range: 0.0 - 0. 8 K/L. The refe rence range was not u sed to interpret this result as normal/abnor mal. # Atypical Lymphs (test 0.12 See_Comment H [Au tomated message] code = 263) The system [employer] generated this result transmitted ref erence range: 0.00 - 0 .00 K/L. The refe rence range was not u sed to interpret this result as normal/abnor mal. Total Counted (test code 100 = 1351) Bands plus Segmented 9.59 Neutrophils (test code = 1352) WBC Morphology (test Normal code = 487) Platelet Morphology Normal (test code = 486) RBC Morphology (test Normal code = 762) Lab Interpretation (test Abnormal code = 12383-4) [facility] W/PLT COUNT & AUTO [id number] 19:09:04 Test Item Value Reference Range Interpretation Comments WHITE BLOOD CELL COUNT (BEAKER) 12.3 K/ L 4.0-10.0 H (test code = 775) RED BLOOD CELL COUNT (BEAKER) 4.78 M/ L 4.20-5.80 (test code = 761) HEMOGLOBIN (BEAKER) (test code = 15.7 GM/DL 13.0-16.8 410) HEMATOCRIT (BEAKER) (test code = 46.0 % 36.0-50.0 411) MEAN CORPUSCULAR VOLUME (BEAKER) 96.2 fL 82.0-99.0 (test code = 753) MEAN CORPUSCULAR HEMOGLOBIN 32.8 pg 27.0-33.0 (BEAKER) (test code = 751) MEAN CORPUSCULAR HEMOGLOBIN CONC 34.1 GM/DL 32.0-36.0 (BEAKER) (test code = 752) RED CELL DISTRIBUTION WIDTH 13.4 % 12.0-15.0 (BEAKER) (test code = 412) PLATELET COUNT (BEAKER) (test 271 K/CU MM 150-430 code = 756) MEAN PLATELET VOLUME (BEAKER) 10.6 fL 6.0-11.5 (test code = 754) NUCLEATED RED BLOOD CELLS 0 /100 WBC 0-0 (BEAKER) (test code = 413) (MANUAL DIFFERENTIAL)2021-03-30 19:09:04 Test Item Value Reference Range Interpretation Comments NEUTROPHILS - REL (DIFF) (BEAKER) 72 % (test code = 1359) LYMPHOCYTES - REL (DIFF) (BEAKER) 14 % (test code = 1360) MONOCYTES - REL (DIFF) (BEAKER) 7 % (test code = 1361) BANDS - REL (DIFF) (BEAKER) (test 6 % 0-10 code = 1348) ATYPICAL LYMPHOCYTE - REL (DIFF) 1 % 0-0 H (BEAKER) (test code = 260) NEUTROPHILS - ABS (DIFF) (BEAKER) 8.86 K/ L 1.80-8.00 H (test code = 1365) LYMPHOCYTES - ABS (DIFF) (BEAKER) 1.72 K/ L 1.48-4.50 (test code = 1366) MONOCYTES - ABS (DIFF) (BEAKER) 0.86 K/ L 0.00-1.30 (test code = 1367) BANDS-ABS (DIFF) (BEAKER) (test 0.7 K/ L 0.0-0.8 code = 1349) ATYPICAL LYMPHOCYTES - ABS (DIFF) 0.12 K/ L 0.00-0.00 H (BEAKER) (test code = 263) TOTAL COUNTED (BEAKER) (test code = 100 1351) BANDS + SEGMENTED NEUTROPHILS 9.59 (BEAKER) (test code = 1352) WBC MORPHOLOGY (BEAKER) (test code Normal = 487) PLT MORPHOLOGY (BEAKER) (test code Normal = 486) RBC MORPHOLOGY (BEAKER) (test code Normal = 762) COMPREHENSIVE METABOLIC [id number] 19:06:14 Test Item Value Reference Range Interpretation Comments TOTAL PROTEIN 6.0 gm/dL 6.0-8.5 (BEAKER) (test code = 770) ALBUMIN (BEAKER) 3.6 g/dL 3.5-5.0 (test code = 1145) ALKALINE PHOSPHATASE 50 U/L 30-115 (BEAKER) (test code = 346) BILIRUBIN TOTAL 1.2 mg/dL 0.1-1.3 (BEAKER) (test code = 377) SODIUM (BEAKER) 141 meq/L 135-148 (test code = 381) POTASSIUM (BEAKER) 4.8 meq/L 3.5-5.5 (test code = 379) CHLORIDE (BEAKER) 112 meq/L 98-106 H (test code = 382) CO2 (BEAKER) (test 20 meq/L 20-31 code = 355) BLOOD UREA NITROGEN 39 mg/dL 10-26 H (BEAKER) (test code = 354) CREATININE (BEAKER) 1.14 mg/dL 0.50-1.20 (test code = 358) GLUCOSE RANDOM 137 mg/dL 70-110 H (BEAKER) (test code = 652) CALCIUM (BEAKER) 7.8 mg/dL 8.5-10.5 L Discordant result (test code = 697) compared t o previous result, clinica l correlation required. AST (SGOT) (BEAKER) 15 U/L 5-40 (test code = 353) ALT (SGPT) (BEAKER) 18 U/L 6-50 (test code = 347) EGFR (BEAKER) (test 65 mL/min/1.73 ESTIMA NICOL GFR IS NOT code = 1092) sq m ACCURATE CREATININE LADARIUS BRUCE IN PREDICTING GLOMERULAR FILTRATION RATE . ESTIMATED GFR I S NOT APPLICABLE FOR DIALYSIS PATIEN TS. Net Sql Developer ID - [id number] 19:03:50 Test Item Value Reference Range Interpretation Comments PHOSPHORUS (BEAKER) (test code = 5.1 mg/dL 2.5-4.5 H 604) Net Sql Developer ID - [id number] 19:03:49 Test Item Value Reference Range Interpretation Comments MAGNESIUM (BEAKER) (test code = 2.0 mg/dL 1.5-3.0 627) Net [employer] Developer ID - [id number] time/[id number] 18:54:47 Test Item Value Reference Interpretation Comments Range Protime (test code = 17.0 See_Comment H [Autom ated 5902-2) message] The system which generated this result transmitted reference range : 11.8 - 14.4 seconds. The reference range was not used to interpret this result as normal/abnormal . INR (test code = 1.46 1.20-1.50 6301-6) VANESSA (test code = RECOMMENDED VANESSA) COUMADIN/WARFARIN INR THERAPY RANGESSTANDARD DOSE: 2.0 - 3.0 Includes: PROPHYLAXIS for venous thrombosis, systemic embolization; TREATMENT for venous thrombosis and/or pulmonary embolus.HIGH RISK: Target INR is 2.5-3.5 for patients with mechanical heart valves. Lab Interpretation Abnormal (test code = 61811-5) [facility] CenterProthrombin time/[id number] 18:54:47 Test Item Value Reference Interpretation Comments Range Protime (test code = 17.0 See_Comment H [Autom ated 5902-2) message] The system which generated this result transmitted reference range : 11.8 - 14.4 seconds. The reference range was not used to interpret this result as normal/abnormal . INR (test code = 1.46 1.20-1.50 6301-6) VANESSA (test code = RECOMMENDED VANESSA) COUMADIN/WARFARIN INR THERAPY RANGESSTANDARD DOSE: 2.0 - 3.0 Includes: PROPHYLAXIS for venous thrombosis, systemic embolization; TREATMENT for venous thrombosis and/or pulmonary embolus.HIGH RISK: Target INR is 2.5-3.5 for patients with mechanical heart valves. Lab Interpretation Abnormal (test code = 15503-1) [facility] CenterPROTHROMBIN TIME/[id number] 18:54:47 Test Item Value Reference Range Interpretation Comments PROTIME (BEAKER) (test code = 17.0 seconds 11.8-14.4 H 759) INR (BEAKER) (test code = 370) 1.46 1.20-1.50 RECOMMENDED COUMADIN/WARFARIN INR THERAPY RANGESSTANDARD DOSE: 2.0 - 3.0 Includes: PROPHYLAXIS for venous thrombosis, systemic embolization; TREATMENT for venous thrombosis and/or pulmonary embolus.HIGH RISK: Target INR is 2.5-3.5 for patients with mechanical heart valves.BLOOD GAS, [id number] 18:51:56 Test Item Value Reference Range Interpretation Comments PH ARTERIAL (BEAKER) (test code = 7.24 7.35-7.45 L 383) PCO2 ARTERIAL (BEAKER) (test code 49 mm Hg 35-45 H = 384) PO2 ARTERIAL (BEAKER) (test code 290 mm Hg 80-90 H = 385) O2 SATURATION ARTERIAL (BEAKER) 99.6 % 96.0-97.0 H (test code = 386) HCO3 ARTERIAL (BEAKER) (test code 20 mmol/L 21-29 L = 388) BASE EXCESS ARTERIAL (BEAKER) -7.4 mmol/L -2.0-3.0 L (test code = 387) PATIENT TEMPERATURE (BEAKER) 37.5 (test code = 1818) FIO2 (BEAKER) (test code = 1819) 100.0 RAD, CHEST, 1 VIEW, NON [id number] 17:40:00Reason for exam:->Central line placementShould this be performed at the bedside?->Yes [facility] 1960 Sex: MFINAL REPORT RAD, CHEST, 1 VIEW, NON DEPT TECHNIQUE: Frontal view(s) of the chest. INDICATION: Central line placement COMPARISON: 05/30/2020 chest radiograph FINDINGS/IMPRESSION: Lines/Tubes: Right transjugular catheter tip at the superior cavoatrial junction. Endotracheal tube tip approximately 5.5 cm above the marine. Nasogastric tube courses below the diaphragm and terminates outside the ppczo-tt-urxw Lungs/pleura: Slight retrocardiac density, possibly atelectatic. Lungs are otherwise clear. No pleural effusion. No pneumothorax. Heart and Mediastinum: Mediastinal surgical clips and otherwise unremarkable for technique. Soft Tissues and Bones: Sternotomy wires. Signed: Douglas Muller Verified Date/Time: 03/30/2021 17:40:19 Reading Location: [facility] Diagnostic Imaging Reading Room - [facility] 1310.12 POCT-GLUCOSE [id number] 17:11:48 Test Item Value Reference Range Interpretation Comments POC-GLUCOSE METER 147 mg/dL 70-110 H : TESTED A [facility] [address] (BEAKER) (test code [facility] [address] [facility], = 1538) [facility] 77 [address]: Net Sql Developer/Techni yuly ID = [id number] for S Shannan ortiz Type and screen, [id number] 15:25:00 Test Item Value Reference Range Interpretation Comments ABO/RH AUTOMATED (BEAKER) (test AB POSITIVE code = 2260) Ab Scrn (test code = 890-4) NEGATIVE [facility] CenterType and screen, [id number] 15:25:00 Test Item Value Reference Range Interpretation Comments ABO/RH AUTOMATED (BEAKER) (test AB POSITIVE code = 2260) Ab Scrn (test code = 890-4) NEGATIVE [facility] CenterRAD, [facility]BDOM[facility]/KUB, 1 VIEW [id number] 12:36:00Reason for exam:->ng placement [facility] 1960 Sex: MFINAL REPORT RAD, ABDOMEN/KUB, 1 VIEW AP TECHNIQUE: Supine radiograph(s) of the upper abdomen and lower chest for tube placement. HISTORY: ng placement COMPARISON: None IMPRESSION: Lines and tubes: Nasogastric tube tip projects over the proximal stomach with sidehole beyond the gastroesophageal junction. Other findings: Right upper quadrant cholecystectomy clips. Mediastinal surgical clips and sternotomy wires. Lung bases are clear. Visualized bowel gas pattern is unremarkable. Signed: Douglas Muller Verified Date/Time: 03/30/2021 12:36:50 Reading Location: [facility] Diagnostic Imaging Reading Room - [facility] 1310.12 -GLUCOSE [id number] 12:20:38 Test Item Value Reference Range Interpretation Comments POC-GLUCOSE METER 195 mg/dL 70-110 H : TESTED A [facility] [address] (BEAKER) (test code [facility], = 1538) [facility] 77 384: Net Sql Developer/Techni yuly ID = [id number] for S Sherie fernandez "Nilda" SARS-CoV2/RT-PCR (Asymptomatic ONLY)2021-03-30 05:10:14 Test Item Value Reference Interpretation Comments Range SARS-COV2/RT-PCR Negative Negative The SARS-Co V-2 (test code = target nucleic 77307-2) acids are not detected in thi s specimen. Negat eric results do not preclude SARS-C oV-2 infection and should not be u sed as the sole bas is for patient management decisions. Nega tive results must be combined with clinical observations, patient history , and epidemiolog ical information. A false negative result may occu r if a specimen is improperly collected, transported or handled. This S ARS CoV-2 test is a rapid, real-toby e RT-PCR test intended for e qualitative detection of nucleic acid fr om SARS-CoV-2 in a nasopharyngeal swab specimen collec nicol from individual s suspected of COVID-19 by the ir healthcare provider. VANESSA (test code = This test has been VANESSA) authorized by FDA under an EUA for use by authorized laboratories. This test is only authorized for the duration of the declaration that circumstances exist justifying the authorization of emergency use of in vitro diagnostic tests for detection and/or diagnosis of COVID-19 under Section 564(b)(1) of the Federal Food, Drug and Cosmetic Act, 21 U.S.C. 360bbb-3(b)(1), unless the authorization is terminated or revoked sooner. Fact Sheet for Healthcare Providers: https://www.[employer]/Documents/Xp ert%20Xpress%20SAR S%20CoV-2/Fact%20S heets/302-3802%20S ARS-COV-2%20HEALTH CARE%20PROVIDERS%2 0FACT%20SHEET.pdf Fact Sheet for Healthcare Patients: https://www.[employer]/Documents/Xp ert%20Xpress%20SAR S%20CoV-2/Fact%20S heets/302-3801%20S ARS-COV-2%20PATIEN T%20FACT%20SHEET.p df Lab Interpretation Normal (test code = 16740-6) [facility]omatic ONLY[facility]2021-03-30 05:10:14 Test Item Value Reference Interpretation Comments Range SARS-COV2/RT-PCR Negative Negative The SARS-Co V-2 (test code = target nucleic 92019-3) acids are not detected in thi s specimen. Negat eric results do not preclude SARS-C oV-2 infection and should not be u sed as the sole bas is for patient management decisions. Nega tive results must be combined with clinical observations, patient history , and epidemiolog ical information. A false negative result may occu r if a specimen is improperly collected, transported or handled. This S ARS CoV-2 test is a rapid, real-toby e RT-PCR test intended for th e qualitative detection of nucleic acid fr om SARS-CoV-2 in a nasopharyngeal swab specimen colle nicol from individual s suspected of COVID-19 by the ir healthcare provider. VANESSA (test code = This test has been VANESSA) authorized by FDA under an EUA for use by authorized laboratories. This test is only authorized for the duration of the declaration that circumstances exist justifying the authorization of emergency use of in vitro diagnostic tests for detection and/or diagnosis of COVID-19 under Section 564(b)(1) of the Federal Food, Drug and Cosmetic Act, 21 U.S.C. 360bbb-3(b)(1), unless the authorization is terminated or revoked sooner. Fact Sheet for Healthcare Providers: https://www.[employer]/Documents/Xp ert%20Xpress%20SAR S%20CoV-2/Fact%20S heets/302-3802%20S ARS-COV-2%20HEALTH CARE%20PROVIDERS%2 0FACT%20SHEET.pdf Fact Sheet for Healthcare Patients: https://www.[employer]/Documents/Xp ert%20Xpress%20SAR S%20CoV-2/Fact%20S heets/302-3801%20S ARS-COV-2%20PATIEN T%20FACT%20SHEET.p df Lab Interpretation Normal (test code = 06245-1) [facility])2021-03-30 05:10:14 Test Item Value Reference Range Interpretation Comments SARS-COV2/RT-PCR Negative Negative The SARS-Co V-2 target (test code = nucleic acids a re not 8517397) detected in thi s specimen. Negative result s do not preclude SARS-C oV-2 infection and s hould not be used as the usman e basis for patient managem ent decisions. Nega tive results must be combine d with clinical observ ations, patient history , and epidemiological information. A false negativ e result may occur if a spec imen is improperly mckayla ected, transported or handled. This SARS CoV-2 test is a rapid, real-time RT-PC R test intended for th e qualitative detection of nu cleic acid from SARS-CoV-2 in a nasopharyngeal swab specimen collected from individuals suspected of CO VID-19 by their healthcar e provider. This test has been authorized by FDA under an EUA for use by authorized laboratories. This test is only authorized for the duration of the declaration that circumstances exist justifying the authorization of emergency use of in vitro diagnostic tests for detection and/or diagnosis of COVID-19 under Section 564(b)(1) of the Federal Food, Drug and Cosmetic Act, 21 U.S.C. 360bbb-3(b)(1), unless the authorization is terminated or revoked sooner. Fact Sheet for Healthcare Providers: https://www.[employer]/Documents/Xpert%20Xpress%20SARS%20CoV-2/Fact%20Sheets/3023802%70PYIX-BVQ-0%20 HEALTHCARE%20PROVIDERS%20FACT%20SHEET.pdf Fact Sheet for Healthcare Patients: https://www.[employer]/Documents/Xpert%20Xp ress%20SARS%20CoV-2/Fact%20Sheets/302-3801%99ZYDN-VBT-8%20PATIENT%20FACT%20SHEET .pdfCT, [id number] 02:58:00Unlisted Reason for Exam - Click Yes and Enter Reason Below->NoIs this for enterography?->NoWill this procedure require oral contrast?->No [facility] 1960 Sex: MFINAL REPORT CT, ABDOMEN \\T\\ PELVIS, WITH IV CONTRAST CLINICAL HISTORY: Nausea/vomitingEpigastric pain TECHNIQUE: Multiple axial images of the abdomen and pelvis were performed after the uncomplicated administration of IV contrast. Coronal and sagittal reformats obtained. Oral contrastwas not administered. This exam was performed according to our departmental dose-optimization program, which includes automated exposure control, adjustment of the mA and/or kV according to patient size and/or use of the iterative reconstruction technique. COMPARISON:None. FINDINGS:LOWER CHEST:No acute process. HEPATOBILIARY: Hepatic cyst measures 3 cm. Cholecystectomy changes. No abnormal biliary ductal dilatation.PANCREAS: No acute findings. SPLEEN: No acute findings.ADRENAL GLANDS: Unremarkable.KIDNEYS URETERS: Left kidney lower pole 3 mm nonobstructing calculus. No hydronephrosis.URINARY BLADDER: No acute findings.REPRODUCTIVE ORGANS: No acute findings. GASTROINTESTINAL/MESENTERY: Dilated fluid-filled small bowel loops with air-fluid levels and swirling pattern within the right lower quadrantwith transition to decompressed ileum, concerning for high-grade obstruction. No pneumatosis intestinalis. Moderate fecal burden. Stomach is moderately distended.PERITONEUM/RETROPERITONEUM: Small volume free fluid. No free air.VESSELS: No acute findings.SOFT TISSUES: There are multiple fat- containing small ventral hernias. Fat-containing small left inguinal hernia.BONES: T12 moderate compression fracture deformity with Schmorl's node appears chronic. IMPRESSION:Small bowel obstruction with right lower quadrant transition point. Small volume ascites. Multiple fat-containing small ventral hernias andleft inguinal hernia. Nonobstructing left nephrolithiasis. Signed: Ashu Bear MDRrenaort VerifiedDate/Time: 03/30/2021 02:58:27 COMPREHENSIVE METABOLIC [id number] 00:33:52 Test Item Value Reference Range Interpretation Comments TOTAL PROTEIN 8.7 gm/dL 6.0-8.5 H Specimen sligh tly (BEAKER) (test code = hemoly zed 770) ALBUMIN (BEAKER) 4.8 g/dL 3.5-5.0 Specimen sl ightly (test code = 1145) hemolyzed ALKALINE PHOSPHATASE 83 U/L 30-115 (BEAKER) (test code = 346) BILIRUBIN TOTAL 0.9 mg/dL 0.1-1.3 Specimen sli ghtly (BEAKER) (test code = hemoly zed 377) SODIUM (BEAKER) (test 139 meq/L 135-148 code = 381) POTASSIUM (BEAKER) 4.3 meq/L 3.5-5.5 Specimen slightly (test code = 379) hemolyzed CHLORIDE (BEAKER) 106 meq/L 98-106 (test code = 382) CO2 (BEAKER) (test 15 meq/L 20-31 L code = 355) BLOOD UREA NITROGEN 17 mg/dL 10-26 (BEAKER) (test code = 354) CREATININE (BEAKER) 0.91 mg/dL 0.50-1.20 Specimen slightly (test code = 358) hemolyzed GLUCOSE RANDOM 167 mg/dL 70-110 H (BEAKER) (test code = 652) CALCIUM (BEAKER) 9.6 mg/dL 8.5-10.5 (test code = 697) AST (SGOT) (BEAKER) 24 U/L 5-40 Specimen slightly (test code = 353) hemolyzed ALT (SGPT) (BEAKER) 24 U/L 6-50 Specimen slightly (test code = 347) hemolyzed EGFR (BEAKER) (test 85 mL/min/1.73 ESTIMA NICOL GFR IS code = 1092) sq m NOT ACCURATE CREATININE CLEARANCE IN PREDICTING GLOMERULAR FILTRATION RATE . ESTIMATED GFR I S NOT APPLICABLE FOR DIALYSIS PATIEN TS. Net Sql Developer ID - [id number] W/ REFLEX URINE [id number] 00:27:45 Test Item Value Reference Range Interpretation Comments COLOR (BEAKER) (test code = 470) Yellow CLARITY (BEAKER) (test code = 469) Hazy SPECIFIC GRAVITY UA (BEAKER) (test 1.025 1.001-1.035 code = 468) PH UA (BEAKER) (test code = 467) 5.0 5.0-8.0 PROTEIN UA (BEAKER) (test code = 30 mg/dL Negative A 464) GLUCOSE UA (BEAKER) (test code = Negative Negative 365) KETONES UA (BEAKER) (test code = 80 mg/dL Negative A 371) BILIRUBIN UA (BEAKER) (test code = Negative Negative 462) BLOOD UA (BEAKER) (test code = 461) Negative Negative NITRITE UA (BEAKER) (test code = Negative Negative 465) LEUKOCYTE ESTERASE UA (BEAKER) Negative Negative (test code = 466) UROBILINOGEN UA (BEAKER) (test code 2.0 mg/dL 0.2-1.0 H = 463) RBC UA (BEAKER) (test code = 519) 3 /HPF WBC UA (BEAKER) (test code = 520) 1 /HPF BACTERIA (BEAKER) (test code = 517) Rare MUCUS (BEAKER) (test code = 1574) Many SQUAMOUS EPITHELIAL (BEAKER) (test < /HPF code = 516) HYALINE CASTS (BEAKER) (test code = 9 /LPF 514) SOURCE(BEAKER) (test code = 2795) Net Sql Developer ID - [auto]Net Sql Developer ID - techTroponin [id number] 22:56:52 Test Item Value Reference Range Interpretation Comments Troponin I (test code = <0.01 0.00-0.15 05768-9) VANESSA (test code = VANESSA) Troponin I (TnI) levels must be interpreted in the context of the presenting symptoms and the clinical findings. Elevated TnI levels indicate myocardial damage, but are not specific for ischemic heart disease. Elevated TnI levels are seen in patients with other cardiac conditions (including myocarditis and congestive heart failure), and slight TnI elevations occur in patients with other conditions, including sepsis, renal failure, acidosis, acute neurological disease, and persistent tachyarrhythmia.Opera tor ID - [id number] Lab Interpretation (test Normal code = 54709-5) [facility] CenterTroponin [id number] 22:56:52 Test Item Value Reference Range Interpretation Comments Troponin I (test code = <0.01 0.00-0.15 48153-9) VANESSA (test code = VANESSA) Troponin I (TnI) levels must be interpreted in the context of the presenting symptoms and the clinical findings. Elevated TnI levels indicate myocardial damage, but are not specific for ischemic heart disease. Elevated TnI levels are seen in patients with other cardiac conditions (including myocarditis and congestive heart failure), and slight TnI elevations occur in patients with other conditions, including sepsis, renal failure, acidosis, acute neurological disease, and persistent tachyarrhythmia.Opera tor ID - [id number] Lab Interpretation (test Normal code = 29059-0) [facility] [id number] 22:56:52 Test Item Value Reference Range Interpretation Comments TROPONIN I (BEAKER) (test code = 397) < ng/mL 0.00-0.15 Troponin I (TnI) levels must be interpreted in the context of the presenting symptoms and the clinical findings. Elevated TnI levels indicate myocardial damage, but are not specific for ischemic heart disease. Elevated TnI levels are seen in patients with other cardiac conditions (including myocarditis and congestive heart failure), and slight TnI elevations occur in patients with other conditions, including sepsis, renal failure, acidosis, acute neurological disease, and persistent tachyarrhythmia.Net Sql Developer ID - [id number] 22:51:12 Test Item Value Reference Range Interpretation Comments Lipase (test code = 38 U/L 3040-3) VANESSA (test code = VANESSA) Net Sql Developer ID - [id number] Lab Interpretation (test Normal code = 29593-7) [facility] 22:51:12 Test Item Value Reference Range Interpretation Comments Lipase (test code = 38 U/L 3040-3) VANESSA (test code = VANESSA) Net Sql Developer ID - [id number] Lab Interpretation (test Normal code = 39965-0) [facility] 22:51:12 Test Item Value Reference Range Interpretation Comments LIPASE (BEAKER) (test code = 749) 38 U/L Net Sql Developer ID - [id number] W/PLT COUNT & AUTO [id number] 22:32:37 Test Item Value Reference Range Interpretation Comments WHITE BLOOD CELL COUNT (BEAKER) 18.2 K/ L 4.0-10.0 H (test code = 775) RED BLOOD CELL COUNT (BEAKER) 5.48 M/ L 4.20-5.80 (test code = 761) HEMOGLOBIN (BEAKER) (test code = 17.9 GM/DL 13.0-16.8 H 410) HEMATOCRIT (BEAKER) (test code = 51.2 % 36.0-50.0 H 411) MEAN CORPUSCULAR VOLUME (BEAKER) 93.4 fL 82.0-99.0 (test code = 753) MEAN CORPUSCULAR HEMOGLOBIN 32.7 pg 27.0-33.0 (BEAKER) (test code = 751) MEAN CORPUSCULAR HEMOGLOBIN CONC 35.0 GM/DL 32.0-36.0 (BEAKER) (test code = 752) RED CELL DISTRIBUTION WIDTH 12.9 % 12.0-15.0 (BEAKER) (test code = 412) PLATELET COUNT (BEAKER) (test 262 K/CU MM 150-430 code = 756) MEAN PLATELET VOLUME (BEAKER) 11.2 fL 6.0-11.5 (test code = 754) NUCLEATED RED BLOOD CELLS 0 /100 WBC 0-0 (BEAKER) (test code = 413) NEUTROPHILS RELATIVE PERCENT 85 % (BEAKER) (test code = 429) LYMPHOCYTES RELATIVE PERCENT 8 % (BEAKER) (test code = 430) MONOCYTES RELATIVE PERCENT 6 % (BEAKER) (test code = 431) EOSINOPHILS RELATIVE PERCENT 0 % (BEAKER) (test code = 432) BASOPHILS RELATIVE PERCENT 0 % (BEAKER) (test code = 437) NEUTROPHILS ABSOLUTE COUNT 15.49 K/ L 1.80-8.00 H (BEAKER) (test code = 670) LYMPHOCYTES ABSOLUTE COUNT 1.51 K/ L 1.48-4.50 (BEAKER) (test code = 414) MONOCYTES ABSOLUTE COUNT (BEAKER) 1.05 K/ L 0.00-1.30 (test code = 415) EOSINOPHILS ABSOLUTE COUNT 0.00 K/ L 0.00-0.50 (BEAKER) (test code = 416) BASOPHILS ABSOLUTE COUNT (BEAKER) 0.04 K/ L 0.00-0.20 (test code = 417) IMMATURE GRANULOCYTES-RELATIVE 0 % 0-0 PERCENT (BEAKER) (test code = 2801) BASIC METABOLIC [id number] 06:30:00 Test Item Value Reference Range Interpretation Comments SODIUM (BEAKER) 138 meq/L 136-145 (test code = 381) POTASSIUM (BEAKER) 4.0 meq/L 3.5-5.1 (test code = 379) CHLORIDE (BEAKER) 102 meq/L 98-107 (test code = 382) CO2 (BEAKER) (test 25 meq/L 22-29 code = 355) BLOOD UREA NITROGEN 10 mg/dL 7-21 (BEAKER) (test code = 354) CREATININE (BEAKER) 0.69 mg/dL 0.57-1.25 (test code = 358) GLUCOSE RANDOM 99 mg/dL 70-105 (BEAKER) (test code = 652) CALCIUM (BEAKER) 9.3 mg/dL 8.4-10.2 (test code = 697) EGFR (BEAKER) (test 117 mL/min/1.73 ESTIM ATED GFR IS code = 1092) sq m NOT ACCURATE CREATININE CLEARANCE IN PREDICTING GLOMERULAR FILTRATION RATE . ESTIMATED GFR I S NOT APPLICABLE FOR DIALYSIS PATIEN TS. Net Sql Developer ID - RESHMA MCBC (HEMOGRAM ONLY)2020-06-02 05:36:00 Test Item Value Reference Range Interpretation Comments WHITE BLOOD CELL COUNT (BEAKER) 7.0 K/ L 3.5-10.5 (test code = 775) RED BLOOD CELL COUNT (BEAKER) 2.77 M/ L 4.63-6.08 L (test code = 761) HEMOGLOBIN (BEAKER) (test code = 9.0 GM/DL 13.7-17.5 L 410) HEMATOCRIT (BEAKER) (test code = 26.9 % 40.1-51.0 L 411) MEAN CORPUSCULAR VOLUME (BEAKER) 97.1 fL 79.0-92.2 H (test code = 753) MEAN CORPUSCULAR HEMOGLOBIN 32.5 pg 25.7-32.2 H (BEAKER) (test code = 751) MEAN CORPUSCULAR HEMOGLOBIN CONC 33.5 GM/DL 32.3-36.5 (BEAKER) (test code = 752) RED CELL DISTRIBUTION WIDTH 12.5 % 11.6-14.4 (BEAKER) (test code = 412) PLATELET COUNT (BEAKER) (test 286 K/CU MM 150-450 code = 756) MEAN PLATELET VOLUME (BEAKER) 9.5 fL 9.4-12.4 (test code = 754) NUCLEATED RED BLOOD CELLS 0 /100 WBC 0-0 (BEAKER) (test code = 413) RAD, CHEST, 1 VIEW, NON [id number] 15:50:00Reason for exam:->evaluate ptxShould this be performed at the bedside?->Yes [facility] 1960 Sex: MFINAL REPORT CLINICAL HISTORY: evaluate ptx TECHNIQUE: 1 view of the chest. COMPARISON: 05/31/2020 IMPRESSION: The previous trace left pneumothorax has essentially resolved. Left lung base pleural parenchymal opacity has also decreased. The right lung remains relatively well-aerated. Cardiomegaly is again seen poststernotomy. Signed: Cassius Rodríguezss[facility] Verified Date/Time: 06/01/2020 15:50:56 Reading Location: [facility] Radiology Reading Room BASI METABOLIC [id number] 06:29:00 Test Item Value Reference Range Interpretation Comments SODIUM (BEAKER) 134 meq/L 136-145 L (test code = 381) POTASSIUM (BEAKER) 3.3 meq/L 3.5-5.1 L (test code = 379) CHLORIDE (BEAKER) 97 meq/L 98-107 L (test code = 382) CO2 (BEAKER) (test 24 meq/L - code = 355) BLOOD UREA NITROGEN 13 mg/dL 7-21 (BEAKER) (test code = 354) CREATININE (BEAKER) 0.69 mg/dL 0.57-1.25 (test code = 358) GLUCOSE RANDOM 107 mg/dL 70-105 H (BEAKER) (test code = 652) CALCIUM (BEAKER) 9.1 mg/dL 8.4-10.2 (test code = 697) EGFR (BEAKER) (test 117 mL/min/1.73 ESTIM ATED GFR IS code = 1092) sq m NOT ACCURATE CREATININE CLEARANCE IN PREDICTING GLOMERULAR FILTRATION RATE . ESTIMATED GFR I S NOT APPLICABLE FOR DIALYSIS PATIEN TS. Net Sql Developer ID - [id number] 06:29:00 Test Item Value Reference Range Interpretation Comments MAGNESIUM (BEAKER) (test code = 1.8 mg/dL 1.6-2.6 627) Net Sql Developer ID - [id number] 06:29:00 Test Item Value Reference Range Interpretation Comments PHOSPHORUS (BEAKER) (test code = 3.6 mg/dL 2.3-4.7 604) Net Sql Developer ID - [id number] (HEMOGRAM ONLY)2020-06-01 05:59:00 Test Item Value Reference Range Interpretation Comments WHITE BLOOD CELL COUNT (BEAKER) 8.6 K/ L 3.5-10.5 (test code = 775) RED BLOOD CELL COUNT (BEAKER) 2.68 M/ L 4.63-6.08 L (test code = 761) HEMOGLOBIN (BEAKER) (test code = 8.6 GM/DL 13.7-17.5 L 410) HEMATOCRIT (BEAKER) (test code = 25.4 % 40.1-51.0 L 411) MEAN CORPUSCULAR VOLUME (BEAKER) 94.8 fL 79.0-92.2 H (test code = 753) MEAN CORPUSCULAR HEMOGLOBIN 32.1 pg 25.7-32.2 (BEAKER) (test code = 751) MEAN CORPUSCULAR HEMOGLOBIN CONC 33.9 GM/DL 32.3-36.5 (BEAKER) (test code = 752) RED CELL DISTRIBUTION WIDTH 12.4 % 11.6-14.4 (BEAKER) (test code = 412) PLATELET COUNT (BEAKER) (test 227 K/CU MM 150-450 code = 756) MEAN PLATELET VOLUME (BEAKER) 9.7 fL 9.4-12.4 (test code = 754) NUCLEATED RED BLOOD CELLS 0 /100 WBC 0-0 (BEAKER) (test code = 413) RAD, CHEST, 1 VIEW, NON [id number] 09:00:00Reason for exam:->s/p acbShould this be performed at the bedside?->Yes [facility] 1960 Sex: MFINAL REPORT CHEST ONE VIEW HISTORY: Status post ACB COMPARISON: 05/30/2020 FINDINGS:Single portable AP examination of the chest was performed. Status post removal of the left-sided chest tube. A small left apical pneumothorax is noted. There is mild atelectatic change at the left lungbase. Mild vascular congestion. No right pneumothorax. The right lung appears clear. The cardiac shadow is enlarged, unchanged. Sternotomy wires are present. Signed: [facility] Verified Date/Time: 05/31/2020 09:00:55 Reading Location: [address] Ortho Consult Reading Room BASIC METABOLIC [id number] 07:26:00 Test Item Value Reference Range Interpretation Comments SODIUM (BEAKER) 135 meq/L 136-145 L (test code = 381) POTASSIUM (BEAKER) 3.8 meq/L 3.5-5.1 (test code = 379) CHLORIDE (BEAKER) 99 meq/L 98-107 (test code = 382) CO2 (BEAKER) (test 24 meq/L 22-29 code = 355) BLOOD UREA NITROGEN 9 mg/dL 7-21 (BEAKER) (test code = 354) CREATININE (BEAKER) 0.60 mg/dL 0.57-1.25 (test code = 358) GLUCOSE RANDOM 113 mg/dL 70-105 H (BEAKER) (test code = 652) CALCIUM (BEAKER) 8.7 mg/dL 8.4-10.2 (test code = 697) EGFR (BEAKER) (test 137 mL/min/1.73 ESTIM ATED GFR IS code = 1092) sq m NOT ACCURATE CREATININE CLEARANCE IN PREDICTING GLOMERULAR FILTRATION RATE . ESTIMATED GFR I S NOT APPLICABLE FOR DIALYSIS PATIEN TS. Net Sql Developer ID - [id number] 07:26:00 Test Item Value Reference Range Interpretation Comments MAGNESIUM (BEAKER) (test code = 2.0 mg/dL 1.6-2.6 627) Net Sql Developer ID - [id number] 07:26:00 Test Item Value Reference Range Interpretation Comments PHOSPHORUS (BEAKER) (test code = 2.5 mg/dL 2.3-4.7 604) Net Sql Developer ID - DBCALCIUM, [id number] 07:11:00 Test Item Value Reference Range Interpretation Comments CALCIUM IONIZED (BEAKER) (test 1.10 mmol/L 1.12-1.27 L code = 698) PH, BLOOD (BEAKER) (test code = 7.42 1810) CBC (HEMOGRAM ONLY)2020-05-31 06:55:00 Test Item Value Reference Range Interpretation Comments WHITE BLOOD CELL COUNT (BEAKER) 9.9 K/ L 3.5-10.5 (test code = 775) RED BLOOD CELL COUNT (BEAKER) 2.72 M/ L 4.63-6.08 L (test code = 761) HEMOGLOBIN (BEAKER) (test code = 8.9 GM/DL 13.7-17.5 L 410) HEMATOCRIT (BEAKER) (test code = 25.7 % 40.1-51.0 L 411) MEAN CORPUSCULAR VOLUME (BEAKER) 94.5 fL 79.0-92.2 H (test code = 753) MEAN CORPUSCULAR HEMOGLOBIN 32.7 pg 25.7-32.2 H (BEAKER) (test code = 751) MEAN CORPUSCULAR HEMOGLOBIN CONC 34.6 GM/DL 32.3-36.5 (BEAKER) (test code = 752) RED CELL DISTRIBUTION WIDTH 12.2 % 11.6-14.4 (BEAKER) (test code = 412) PLATELET COUNT (BEAKER) (test 168 K/CU MM 150-450 code = 756) MEAN PLATELET VOLUME (BEAKER) 10.0 fL 9.4-12.4 (test code = 754) NUCLEATED RED BLOOD CELLS 0 /100 WBC 0-0 (BEAKER) (test code = 413) RAD, CHEST, 1 VIEW, NON [id number] 09:21:00Reason for exam:->post opShould this be performed at the bedside?->Yes [facility] 1960 Sex: MFINAL REPORT RAD, CHEST, 1 VIEW, NON DEPT INDICATION: post op COMPARISON: Prior day's exam FINDINGS: Portable frontal view of the chest. IMPRESSION: Support Lines: Sternotomy wires Lungs and pleura: Mild basilar atelectasis. Left pleural catheter. No pneumothorax.Heart and mediastinum: Stable contours.Additional findings: None. Signed: Janey Arthur MDReport Verified Date/Time: 05/30/2020 09:21:38 Reading Location: [address] Neuro Reading Room [id number] 06:07:00 Test Item Value Reference Range Interpretation Comments MAGNESIUM (BEAKER) 2.0 mg/dL 1.6-2.6 Specimen slightly (test code = 627) hemolyzed Net Sql Developer ID - RESHMA [id number] 06:07:00 Test Item Value Reference Range Interpretation Comments PHOSPHORUS (BEAKER) 2.6 mg/dL 2.3-4.7 Specimen slightly (test code = 604) hemolyzed Net Sql Developer ID - RESHMA MBASIC METABOLIC [id number] 06:07:00 Test Item Value Reference Range Interpretation Comments SODIUM (BEAKER) 133 meq/L 136-145 L (test code = 381) POTASSIUM (BEAKER) 4.1 meq/L 3.5-5.1 Specimen slightly (test code = 379) hemolyzed CHLORIDE (BEAKER) 100 meq/L 98-107 (test code = 382) CO2 (BEAKER) (test 23 meq/L 22-29 code = 355) BLOOD UREA NITROGEN 7 mg/dL 7-21 (BEAKER) (test code = 354) CREATININE (BEAKER) 0.59 mg/dL 0.57-1.25 Specimen slightly (test code = 358) hemolyzed GLUCOSE RANDOM 113 mg/dL 70-105 H (BEAKER) (test code = 652) CALCIUM (BEAKER) 8.4 mg/dL 8.4-10.2 (test code = 697) EGFR (BEAKER) (test 140 mL/min/1.73 ESTIM ATED GFR IS code = 1092) sq m NOT ACCURATE CREATININE CLEARANCE IN PREDICTING GLOMERULAR FILTRATION RATE . ESTIMATED GFR I S NOT APPLICABLE FOR DIALYSIS PATIEN TS. Net Sql Developer ID - RESHMA MCALCIUM, [id number] 05:18:00 Test Item Value Reference Range Interpretation Comments CALCIUM IONIZED (BEAKER) (test 1.05 mmol/L 1.12-1.27 L code = 698) PH, BLOOD (BEAKER) (test code = 7.43 1810) CBC (HEMOGRAM ONLY)2020-05-30 05:16:00 Test Item Value Reference Range Interpretation Comments WHITE BLOOD CELL COUNT (BEAKER) 11.8 K/ L 3.5-10.5 H (test code = 775) RED BLOOD CELL COUNT (BEAKER) 2.65 M/ L 4.63-6.08 L (test code = 761) HEMOGLOBIN (BEAKER) (test code = 8.6 GM/DL 13.7-17.5 L 410) HEMATOCRIT (BEAKER) (test code = 25.0 % 40.1-51.0 L 411) MEAN CORPUSCULAR VOLUME (BEAKER) 94.3 fL 79.0-92.2 H (test code = 753) MEAN CORPUSCULAR HEMOGLOBIN 32.5 pg 25.7-32.2 H (BEAKER) (test code = 751) MEAN CORPUSCULAR HEMOGLOBIN CONC 34.4 GM/DL 32.3-36.5 (BEAKER) (test code = 752) RED CELL DISTRIBUTION WIDTH 12.4 % 11.6-14.4 (BEAKER) (test code = 412) PLATELET COUNT (BEAKER) (test 131 K/CU MM 150-450 L code = 756) MEAN PLATELET VOLUME (BEAKER) 10.4 fL 9.4-12.4 (test code = 754) NUCLEATED RED BLOOD CELLS 0 /100 WBC 0-0 (BEAKER) (test code = 413) POCT-GLUCOSE [id number] 08:17:00 Test Item Value Reference Range Interpretation Comments POC-GLUCOSE METER 107 mg/dL 70-110 : TESTED A T [facility] 6720 (BEAKER) (test code = [place], 1538) [address]: Net Sql Developer/Techni yuly ID = [id number] for Josette Azevedo BASIC METABOLIC [id number] 05:57:00 Test Item Value Reference Range Interpretation Comments SODIUM (BEAKER) 136 meq/L 136-145 (test code = 381) POTASSIUM (BEAKER) 4.0 meq/L 3.5-5.1 (test code = 379) CHLORIDE (BEAKER) 107 meq/L 98-107 (test code = 382) CO2 (BEAKER) (test 22 meq/L 22-29 code = 355) BLOOD UREA NITROGEN 9 mg/dL 7-21 (BEAKER) (test code = 354) CREATININE (BEAKER) 0.64 mg/dL 0.57-1.25 (test code = 358) GLUCOSE RANDOM 113 mg/dL 70-105 H (BEAKER) (test code = 652) CALCIUM (BEAKER) 7.6 mg/dL 8.4-10.2 L (test code = 697) EGFR (BEAKER) (test 128 mL/min/1.73 ESTIM ATED GFR IS code = 1092) sq m NOT ACCURATE CREATININE CLEARANCE IN PREDICTING GLOMERULAR FILTRATION RATE . ESTIMATED GFR I S NOT APPLICABLE FOR DIALYSIS PATIEN TS. Net Sql Developer ID - [id number] 05:55:00 Test Item Value Reference Range Interpretation Comments MAGNESIUM (BEAKER) (test code = 1.9 mg/dL 1.6-2.6 627) Net Sql Developer ID - [id number] 05:55:00 Test Item Value Reference Range Interpretation Comments PHOSPHORUS (BEAKER) (test code = 4.1 mg/dL 2.3-4.7 604) Net Sql Developer ID - DBCBC W/PLT COUNT & AUTO [id number] 05:13:00 Test Item Value Reference Range Interpretation Comments WHITE BLOOD CELL COUNT (BEAKER) 6.9 K/ L 3.5-10.5 (test code = 775) RED BLOOD CELL COUNT (BEAKER) 2.43 M/ L 4.63-6.08 L (test code = 761) HEMOGLOBIN (BEAKER) (test code = 8.0 GM/DL 13.7-17.5 L 410) HEMATOCRIT (BEAKER) (test code = 23.6 % 40.1-51.0 L 411) MEAN CORPUSCULAR VOLUME (BEAKER) 97.1 fL 79.0-92.2 H (test code = 753) MEAN CORPUSCULAR HEMOGLOBIN 32.9 pg 25.7-32.2 H (BEAKER) (test code = 751) MEAN CORPUSCULAR HEMOGLOBIN CONC 33.9 GM/DL 32.3-36.5 (BEAKER) (test code = 752) RED CELL DISTRIBUTION WIDTH 12.2 % 11.6-14.4 (BEAKER) (test code = 412) PLATELET COUNT (BEAKER) (test 117 K/CU MM 150-450 L code = 756) MEAN PLATELET VOLUME (BEAKER) 10.0 fL 9.4-12.4 (test code = 754) NUCLEATED RED BLOOD CELLS 0 /100 WBC 0-0 (BEAKER) (test code = 413) NEUTROPHILS RELATIVE PERCENT 69 % (BEAKER) (test code = 429) LYMPHOCYTES RELATIVE PERCENT 17 % (BEAKER) (test code = 430) MONOCYTES RELATIVE PERCENT 13 % (BEAKER) (test code = 431) EOSINOPHILS RELATIVE PERCENT 0 % (BEAKER) (test code = 432) BASOPHILS RELATIVE PERCENT 0 % (BEAKER) (test code = 437) NEUTROPHILS ABSOLUTE COUNT 4.75 K/ L 1.78-5.38 (BEAKER) (test code = 670) LYMPHOCYTES ABSOLUTE COUNT 1.19 K/ L 1.32-3.57 L (BEAKER) (test code = 414) MONOCYTES ABSOLUTE COUNT (BEAKER) 0.91 K/ L 0.30-0.82 H (test code = 415) EOSINOPHILS ABSOLUTE COUNT 0.01 K/ L 0.04-0.54 L (BEAKER) (test code = 416) BASOPHILS ABSOLUTE COUNT (BEAKER) 0.01 K/ L 0.01-0.08 (test code = 417) IMMATURE GRANULOCYTES-RELATIVE 0 % 0-1 PERCENT (BEAKER) (test code = 2801) LACTIC ACID, [id number] 05:11:00 Test Item Value Reference Range Interpretation Comments LACTATE BLOOD 1.3 mmol/L 0.5-2.2 Specimen sligh tly ARTERIAL (2) (BEAKER) hemoly zed (test code = 2874) Net Sql Developer ID - ADEN [id number] 05:10:00 Test Item Value Reference Range Interpretation Comments PARTIAL THROMBOPLASTIN TIME 39.2 seconds 22.5-36.0 H (BEAKER) (test code = 760) PROTHROMBIN TIME/[id number] 05:09:00 Test Item Value Reference Range Interpretation Comments PROTIME (BEAKER) 17.3 seconds 11.9-14.2 H (test code = 759) INR (BEAKER) (test 1.47 See_Comment [Automat ed message] code = 370) The system [employer] generated this result transmitted ref erence range: <=5.90. The reference range was not used to int erpret this result as normal/abnormal . Effective 08/08/2018: PT Reference Range ChangeNew: 11.9-14.2 Previous: 11.7- 14.7RECOMMENDED COUMADIN/WARFARIN INR THERAPY RANGESSTANDARD DOSE: 2.0-3.0 Includes: PROPHYLAXIS for venous thrombosis, systemic embolization; TREATMENT for venous thrombosis and/or pulmonary embolus.HIGH RISK: Target INR is 2.5-3.5 for patients wiht mechanical heart valves.CALCIUM, [id number] 04:42:00 Test Item Value Reference Range Interpretation Comments CALCIUM IONIZED (BEAKER) (test 1.06 mmol/L 1.12-1.27 L code = 698) PH, BLOOD (BEAKER) (test code = 7.40 1810) RAD, CHEST, 1 VIEW, NON [id number] 02:31:00Reason for exam:->post opShould this be performed at the bedside?->Yes [facility] : 1960 Sex: MFINAL REPORT RAD, CHEST, 1 VIEW, NON DEPT INDICATION: post op COMPARISON: Prior day's exam FINDINGS: Portable frontal view of the chest. IMPRESSION: Support Lines: Unchanged coarse of the right IJ central venous catheter may be related to patient positioning and hypoventilatory technique however recommend close attention on follow-up imaging. Interval extubation and removal the previously seen enteric tube. Otherwise unchanged support apparatus. Lungs and pleura: Unchanged airspace and pleural opacities. No pneumothorax.Heart and mediastinum: Stable contours. Stable surgical changes. Additional findings: None. Signed: Sunitha Givens Verified Date/Time: 05/29/2020 02:31:37 LACTIC ACID, [id number] 22:35:00 Test Item Value Reference Range Interpretation Comments LACTATE BLOOD 2.0 mmol/L 0.5-2.2 Specimen sligh tly ARTERIAL (2) (BEAKER) hemoly zed (test code = 2874) Net Sql Developer ID - DBBLOOD GAS, [id number] 22:22:00 Test Item Value Reference Range Interpretation Comments PH ARTERIAL (BEAKER) (test code = 7.38 7.35-7.45 383) PCO2 ARTERIAL (BEAKER) (test code 40 mm Hg 35-45 = 384) PO2 ARTERIAL (BEAKER) (test code 101 mm Hg 80-90 H = 385) O2 SATURATION ARTERIAL (BEAKER) 97.5 % 96.0-97.0 H (test code = 386) HCO3 ARTERIAL (BEAKER) (test code 23 mmol/L 21-29 = 388) BASE EXCESS ARTERIAL (BEAKER) -1.9 mmol/L -2.0-3.0 (test code = 387) PATIENT TEMPERATURE (BEAKER) 37.0 (test code = 1818) FIO2 (BEAKER) (test code = 1819) 28.0 GLUCOSE-STAT [id number] 22:22:00 Test Item Value Reference Range Interpretation Comments GLUCOSE RANDOM (BEAKER) (test code 138 mg/dL 70-110 H = 652) HGB/HCT (H&H) - STAT [id number] 22:22:00 Test Item Value Reference Range Interpretation Comments HEMOGLOBIN (BEAKER) (test code = 8.6 GM/DL 13.0-16.8 L 410) HEMATOCRIT (BEAKER) (test code = 25.0 % 40.0-50.0 L 411) CALCIUM, [id number] 22:22:00 Test Item Value Reference Range Interpretation Comments CALCIUM IONIZED (BEAKER) (test 1.03 mmol/L 1.12-1.27 L code = 698) PH, BLOOD (BEAKER) (test code = 7.38 1810) SODIUM NA-STAT [id number] 22:20:00 Test Item Value Reference Range Interpretation Comments SODIUM (BEAKER) (test code = 381) 136 meq/L 136-145 POTASSIUM-STAT [id number] 22:20:00 Test Item Value Reference Range Interpretation Comments POTASSIUM (BEAKER) (test code = 3.6 meq/L 3.6-5.5 379) BLOOD GAS, [id number] 14:24:00 Test Item Value Reference Range Interpretation Comments PH ARTERIAL (BEAKER) (test code = 7.42 7.35-7.45 383) PCO2 ARTERIAL (BEAKER) (test code 38 mm Hg 35-45 = 384) PO2 ARTERIAL (BEAKER) (test code 130 mm Hg 80-90 H = 385) O2 SATURATION ARTERIAL (BEAKER) 98.7 % 96.0-97.0 H (test code = 386) HCO3 ARTERIAL (BEAKER) (test code 24 mmol/L 21-29 = 388) BASE EXCESS ARTERIAL (BEAKER) -0.3 mmol/L -2.0-3.0 (test code = 387) PATIENT TEMPERATURE (BEAKER) 36.2 (test code = 1818) FIO2 (BEAKER) (test code = 1819) 40.0 [id number] 12:46:00 Test Item Value Reference Range Interpretation Comments MAGNESIUM (BEAKER) 2.4 mg/dL 1.6-2.6 Specimen slightly (test code = 627) hemolyzed [employer] Developer ID - [id number] 12:46:00 Test Item Value Reference Range Interpretation Comments PHOSPHORUS (BEAKER) 4.2 mg/dL 2.3-4.7 Specimen slightly (test code = 604) hemolyzed [employer] Developer ID - EMERSONCOMPREHENSIVE METABOLIC [id number] 12:46:00 Test Item Value Reference Range Interpretation Comments TOTAL PROTEIN 5.9 gm/dL 6.0-8.3 L Specimen sligh tly (BEAKER) (test code = hemoly zed 770) ALBUMIN (BEAKER) 4.0 g/dL 3.5-5.0 Specimen sl ightly (test code = 1145) hemolyzed ALKALINE PHOSPHATASE 38 U/L 40-150 L (BEAKER) (test code = 346) BILIRUBIN TOTAL 0.9 mg/dL 0.2-1.2 Specimen sli ghtly (BEAKER) (test code = hemoly zed 377) SODIUM (BEAKER) (test 139 meq/L 136-145 code = 381) POTASSIUM (BEAKER) 4.1 meq/L 3.5-5.1 Specimen slightly (test code = 379) hemolyzed CHLORIDE (BEAKER) 107 meq/L 98-107 (test code = 382) CO2 (BEAKER) (test 23 meq/L 22-29 code = 355) BLOOD UREA NITROGEN 10 mg/dL 7-21 (BEAKER) (test code = 354) CREATININE (BEAKER) 0.64 mg/dL 0.57-1.25 Specimen slightly (test code = 358) hemolyzed GLUCOSE RANDOM 120 mg/dL 70-105 H (BEAKER) (test code = 652) CALCIUM (BEAKER) 8.6 mg/dL 8.4-10.2 (test code = 697) AST (SGOT) (BEAKER) 27 U/L 5-34 Specimen slightly (test code = 353) hemolyzed ALT (SGPT) (BEAKER) 18 U/L 6-55 Specimen slightly (test code = 347) hemolyzed EGFR (BEAKER) (test 128 ESTIMATE D GFR IS code = 1092) mL/min/1.73 sq NOT ACCURA TE m CREATININE CLEARANCE IN PREDICTING GLOMERULAR FILTRATION RATE . ESTIMATED GFR I S NOT APPLICABLE FOR DIALYSIS PATIEN TS. [employer] Developer ID - EMERSONLACTIC ACID, [id number] 12:41:00 Test Item Value Reference Range Interpretation Comments LACTATE BLOOD 2.1 mmol/L 0.5-2.2 Specimen sligh tly ARTERIAL (2) (BEAKER) hemoly zed (test code = 2874) [employer] Developer ID - EMERSONPROTHROMBIN TIME/[id number] 12:29:00 Test Item Value Reference Range Interpretation Comments PROTIME (BEAKER) 17.3 seconds 11.9-14.2 H (test code = 759) INR (BEAKER) (test 1.46 See_Comment [Automat ed message] code = 370) The system [employer] generated this result transmitted ref erence range: <=5.90. The reference range was not used to int erpret this result as normal/abnormal . Effective 08/08/2018: PT Reference Range ChangeNew: 11.9-14.2 Previous: 11.7- 14.7RECOMMENDED COUMADIN/WARFARIN INR THERAPY RANGESSTANDARD DOSE: 2.0-3.0 Includes: PROPHYLAXIS for venous thrombosis, systemic embolization; TREATMENT for venous thrombosis and/or pulmonary embolus.HIGH RISK: Target INR is 2.5-3.5 for patients wiht mechanical heart valves.[id number] 12:29:00 Test Item Value Reference Range Interpretation Comments PARTIAL THROMBOPLASTIN TIME 31.3 seconds 22.5-36.0 (BEAKER) (test code = 760) [id number] 12:28:00 Test Item Value Reference Range Interpretation Comments PARTIAL THROMBOPLASTIN TIME 31.3 seconds 22.5-36.0 (BEAKER) (test code = 760) [id number] 12:28:00 Test Item Value Reference Range Interpretation Comments FIBRINOGEN LEVEL (BEAKER) (test 180 mg/dl 225-434 L code = 658) PROTHROMBIN [id number] 12:27:00 Test Item Value Reference Range Interpretation Comments PROTIME (BEAKER) 17.2 seconds 11.9-14.2 H (test code = 759) INR (BEAKER) (test 1.45 See_Comment [Automat ed message] code = 370) The system [employer] generated this result transmitted ref erence range: <=5.90. The reference range was not used to int erpret this result as normal/abnormal . Effective 08/08/2018: PT Reference Range ChangeNew: 11.9-14.2 Previous: 11.7- 14.7RECOMMENDED COUMADIN/WARFARIN INR THERAPY RANGESSTANDARD DOSE: 2.0-3.0 Includes: PROPHYLAXIS for venous thrombosis, systemic embolization; TREATMENT for venous thrombosis and/or pulmonary embolus.HIGH RISK: Target INR is 2.5-3.5 for patients wiht mechanical heart valves.CBC W/PLT COUNT & AUTO [id number] 12:15:00 Test Item Value Reference Range Interpretation Comments WHITE BLOOD CELL COUNT (BEAKER) 10.3 K/ L 3.5-10.5 (test code = 775) RED BLOOD CELL COUNT (BEAKER) 3.19 M/ L 4.63-6.08 L (test code = 761) HEMOGLOBIN (BEAKER) (test code = 10.4 GM/DL 13.7-17.5 L 410) HEMATOCRIT (BEAKER) (test code = 30.4 % 40.1-51.0 L 411) MEAN CORPUSCULAR VOLUME (BEAKER) 95.3 fL 79.0-92.2 H (test code = 753) MEAN CORPUSCULAR HEMOGLOBIN 32.6 pg 25.7-32.2 H (BEAKER) (test code = 751) MEAN CORPUSCULAR HEMOGLOBIN CONC 34.2 GM/DL 32.3-36.5 (BEAKER) (test code = 752) RED CELL DISTRIBUTION WIDTH 12.1 % 11.6-14.4 (BEAKER) (test code = 412) PLATELET COUNT (BEAKER) (test 126 K/CU MM 150-450 L code = 756) MEAN PLATELET VOLUME (BEAKER) 9.3 fL 9.4-12.4 L (test code = 754) NUCLEATED RED BLOOD CELLS 0 /100 WBC 0-0 (BEAKER) (test code = 413) NEUTROPHILS RELATIVE PERCENT 76 % (BEAKER) (test code = 429) LYMPHOCYTES RELATIVE PERCENT 19 % (BEAKER) (test code = 430) MONOCYTES RELATIVE PERCENT 4 % (BEAKER) (test code = 431) EOSINOPHILS RELATIVE PERCENT 0 % (BEAKER) (test code = 432) BASOPHILS RELATIVE PERCENT 0 % (BEAKER) (test code = 437) NEUTROPHILS ABSOLUTE COUNT 7.82 K/ L 1.78-5.38 H (BEAKER) (test code = 670) LYMPHOCYTES ABSOLUTE COUNT 1.95 K/ L 1.32-3.57 (BEAKER) (test code = 414) MONOCYTES ABSOLUTE COUNT (BEAKER) 0.37 K/ L 0.30-0.82 (test code = 415) EOSINOPHILS ABSOLUTE COUNT 0.03 K/ L 0.04-0.54 L (BEAKER) (test code = 416) BASOPHILS ABSOLUTE COUNT (BEAKER) 0.01 K/ L 0.01-0.08 (test code = 417) IMMATURE GRANULOCYTES-RELATIVE 1 % 0-1 PERCENT (BEAKER) (test code = 2801) SODIUM NA-STAT [id number] 12:10:00 Test Item Value Reference Range Interpretation Comments SODIUM (BEAKER) (test code = 381) 138 meq/L 136-145 POTASSIUM-STAT [id number] 12:10:00 Test Item Value Reference Range Interpretation Comments POTASSIUM (BEAKER) (test code = 4.0 meq/L 3.6-5.5 379) CALCIUM, [id number] 12:10:00 Test Item Value Reference Range Interpretation Comments CALCIUM IONIZED (BEAKER) (test 1.17 mmol/L 1.12-1.27 code = 698) PH, BLOOD (BEAKER) (test code = 7.39 1810) BLOOD GAS, [id number] 12:10:00 Test Item Value Reference Range Interpretation Comments PH ARTERIAL (BEAKER) (test code = 7.43 7.35-7.45 383) PCO2 ARTERIAL (BEAKER) (test code 36 mm Hg 35-45 = 384) PO2 ARTERIAL (BEAKER) (test code 167 mm Hg 80-90 H = 385) O2 SATURATION ARTERIAL (BEAKER) 99.2 % 96.0-97.0 H (test code = 386) HCO3 ARTERIAL (BEAKER) (test code 24 mmol/L 21-29 = 388) BASE EXCESS ARTERIAL (BEAKER) -0.8 mmol/L -2.0-3.0 (test code = 387) PATIENT TEMPERATURE (BEAKER) 34.3 (test code = 1818) FIO2 (BEAKER) (test code = 1819) 50.0 GLUCOSE-STAT [id number] 12:10:00 Test Item Value Reference Range Interpretation Comments GLUCOSE RANDOM (BEAKER) (test code 117 mg/dL 70-110 H = 652) HGB/HCT (H&H) - STAT [id number] 12:10:00 Test Item Value Reference Range Interpretation Comments HEMOGLOBIN (BEAKER) (test code = 11.1 GM/DL 13.0-16.8 L 410) HEMATOCRIT (BEAKER) (test code = 33.0 % 40.0-50.0 L 411) OXYGEN SATURATION, [id number] 12:08:00 Test Item Value Reference Range Interpretation Comments O2 SATURATION (MEASURED) (BEAKER) 62.2 % (test code = 1455) RAD, CHEST, 1 VIEW, NON [id number] 12:01:00Reason for exam:->post opShould this be performed at the bedside?->Yes [facility] 1960 Sex: MFINAL REPORT RAD, CHEST, 1 VIEW, NON DEPT INDICATION: post op COMPARISON: May 28, 2020 FINDINGS: Portable frontal view of the chest. IMPRESSION: Support Lines: Right-sided central catheter tip overlies the SVC. NG tube descends below the diaphragm. ET tube tip is 4 cm superior to thecarina. Left chest tube. Lungs and pleura: Mild diffuse interstitial thickening No pneumothorax.Heart and mediastinum: Normal contours.Additional findings: None. Signed: Janey Arthur MDReport Verified Date/Time: 05/28/2020 12:01:29 Reading Location: [facility] Radiology Reading Room CBC W/PLT COUNT & AUTO [id number] 11:56:00 Test Item Value Reference Range Interpretation Comments WHITE BLOOD CELL COUNT (BEAKER) 15.7 K/ L 3.5-10.5 H (test code = 775) RED BLOOD CELL COUNT (BEAKER) 2.98 M/ L 4.63-6.08 L (test code = 761) HEMOGLOBIN (BEAKER) (test code = 9.9 GM/DL 13.7-17.5 L 410) HEMATOCRIT (BEAKER) (test code = 28.1 % 40.1-51.0 L 411) MEAN CORPUSCULAR VOLUME (BEAKER) 94.3 fL 79.0-92.2 H (test code = 753) MEAN CORPUSCULAR HEMOGLOBIN 33.2 pg 25.7-32.2 H (BEAKER) (test code = 751) MEAN CORPUSCULAR HEMOGLOBIN CONC 35.2 GM/DL 32.3-36.5 (BEAKER) (test code = 752) RED CELL DISTRIBUTION WIDTH 12.4 % 11.6-14.4 (BEAKER) (test code = 412) PLATELET COUNT (BEAKER) (test 136 K/CU MM 150-450 L code = 756) MEAN PLATELET VOLUME (BEAKER) 10.9 fL 9.4-12.4 (test code = 754) NUCLEATED RED BLOOD CELLS 0 /100 WBC 0-0 (BEAKER) (test code = 413) NEUTROPHILS RELATIVE PERCENT 80 % (BEAKER) (test code = 429) LYMPHOCYTES RELATIVE PERCENT 15 % (BEAKER) (test code = 430) MONOCYTES RELATIVE PERCENT 4 % (BEAKER) (test code = 431) EOSINOPHILS RELATIVE PERCENT 0 % (BEAKER) (test code = 432) BASOPHILS RELATIVE PERCENT 0 % (BEAKER) (test code = 437) NEUTROPHILS ABSOLUTE COUNT 12.52 K/ L 1.78-5.38 H (BEAKER) (test code = 670) LYMPHOCYTES ABSOLUTE COUNT 2.38 K/ L 1.32-3.57 (BEAKER) (test code = 414) MONOCYTES ABSOLUTE COUNT (BEAKER) 0.56 K/ L 0.30-0.82 (test code = 415) EOSINOPHILS ABSOLUTE COUNT 0.04 K/ L 0.04-0.54 (BEAKER) (test code = 416) BASOPHILS ABSOLUTE COUNT (BEAKER) 0.02 K/ L 0.01-0.08 (test code = 417) IMMATURE GRANULOCYTES-RELATIVE 1 % 0-1 PERCENT (BEAKER) (test code = 2801) [id number] 10:44:00 Test Item Value Reference Range Interpretation Comments ACTIVATED CLOTTING TIME 114 sec : 74 -137 seconds, (BEAKER) (test code = Dwaynei ne: TESTED AT 441) [facility] [address] [facility], [facility] 30: Net Sql Developer/Techni yuly ID = [id number] for CRYSTAL ROSS PROTHROMBIN [id number] 10:43:00 Test Item Value Reference Range Interpretation Comments PROTIME (BEAKER) 18.6 seconds 11.9-14.2 H (test code = 759) INR (BEAKER) (test 1.60 See_Comment [Automat ed message] code = 370) The system [employer] generated this result transmitted ref erence range: <=5.90. The reference range was not used to int erpret this result as normal/abnormal . Effective 08/08/2018: PT Reference Range ChangeNew: 11.9-14.2 Previous: 11.7- 14.7RECOMMENDED COUMADIN/WARFARIN INR THERAPY RANGESSTANDARD DOSE: 2.0-3.0 Includes: PROPHYLAXIS for venous thrombosis, systemic embolization; TREATMENT for venous thrombosis and/or pulmonary embolus.HIGH RISK: Target INR is 2.5-3.5 for patients wiht mechanical heart valves.[id number] 10:43:00 Test Item Value Reference Range Interpretation Comments FIBRINOGEN LEVEL (BEAKER) (test 184 mg/dl 225-434 L code = 658) [id number] 10:43:00 Test Item Value Reference Range Interpretation Comments PARTIAL THROMBOPLASTIN TIME 31.6 seconds 22.5-36.0 (BEAKER) (test code = 760) [id number] 10:43:00 Test Item Value Reference Range Interpretation Comments ACTIVATED CLOTTING TIME 598 sec : 74 -137 seconds, (BEAKER) (test code = José Miguel ne: TESTED AT 441) [address], [facility] 30: Net Sql Developer/Techni yuly ID = [id number] for NG CHERYLMITCHELLG [id number] 10:43:00 Test Item Value Reference Range Interpretation Comments ACTIVATED CLOTTING TIME 483 sec : 74 -137 seconds, (BEAKER) (test code = José Miguel ne: TESTED AT 441) [address], [address] 30: Net Sql Developer/Techni yuly ID = [id number] for NG CHERYLMITCHELL CARRERAG [id number] 10:43:00 Test Item Value Reference Range Interpretation Comments ACTIVATED CLOTTING TIME 588 sec : 74 -137 seconds, (BEAKER) (test code = José Miguel ne: TESTED AT 441) [address], [address] 30: Net Sql Developer/Techni yuly ID = [id number] for NG CHERYLMITCHELLG [id number] 10:43:00 Test Item Value Reference Range Interpretation Comments ACTIVATED CLOTTING TIME 609 sec : 74 -137 seconds, (BEAKER) (test code = José Miguel ne: TESTED AT 441) [address], [facility] 30: Net Sql Developer/Techni yuly ID = [id number] for NG CHERYLMITCHELLG PLATELET [id number] 10:29:00 Test Item Value Reference Range Interpretation Comments PLATELET COUNT (BEAKER) (test 136 K/CU MM 150-450 L code = 756) Net [employer] Developer ID - [id number], [id number] 10:24:00 Test Item Value Reference Range Interpretation Comments CALCIUM IONIZED (BEAKER) (test 1.13 mmol/L 1.12-1.27 code = 698) PH, BLOOD (BEAKER) (test code = 7.38 1810) BLOOD GAS, [id number] 10:24:00 Test Item Value Reference Range Interpretation Comments PH ARTERIAL (BEAKER) (test code = 7.40 7.35-7.45 383) PCO2 ARTERIAL (BEAKER) (test code 40 mm Hg 35-45 = 384) PO2 ARTERIAL (BEAKER) (test code 151 mm Hg 80-90 H = 385) O2 SATURATION ARTERIAL (BEAKER) 99.0 % 96.0-97.0 H (test code = 386) HCO3 ARTERIAL (BEAKER) (test code 24 mmol/L 21-29 = 388) BASE EXCESS ARTERIAL (BEAKER) -0.8 mmol/L -2.0-3.0 (test code = 387) PATIENT TEMPERATURE (BEAKER) 35.9 (test code = 1818) FIO2 (BEAKER) (test code = 1819) 100.0 SODIUM NA-STAT [id number] 10:24:00 Test Item Value Reference Range Interpretation Comments SODIUM (BEAKER) (test code = 381) 134 meq/L 136-145 L POTASSIUM-STAT [id number] 10:24:00 Test Item Value Reference Range Interpretation Comments POTASSIUM (BEAKER) (test code = 5.6 meq/L 3.6-5.5 H 379) GLUCOSE-STAT [id number] 10:24:00 Test Item Value Reference Range Interpretation Comments GLUCOSE RANDOM (BEAKER) (test code 167 mg/dL 70-110 H = 652) HGB/HCT (H&H) - STAT [id number] 10:24:00 Test Item Value Reference Range Interpretation Comments HEMOGLOBIN (BEAKER) (test code = 10.3 GM/DL 13.0-16.8 L 410) HEMATOCRIT (BEAKER) (test code = 30.0 % 40.0-50.0 L 411) BLOOD GAS, [id number] 10:11:00 Test Item Value Reference Range Interpretation Comments PH ARTERIAL (BEAKER) (test code = 7.36 7.35-7.45 383) PCO2 ARTERIAL (BEAKER) (test code 47 mm Hg 35-45 H = 384) PO2 ARTERIAL (BEAKER) (test code = 291 mm Hg 80-90 H 385) O2 SATURATION ARTERIAL (BEAKER) 99.6 % 96.0-97.0 H (test code = 386) HCO3 ARTERIAL (BEAKER) (test code 26 mmol/L 21-29 = 388) BASE EXCESS ARTERIAL (BEAKER) 0.4 mmol/L -2.0-3.0 (test code = 387) PATIENT TEMPERATURE (BEAKER) (test 36.3 code = 1818) FIO2 (BEAKER) (test code = 1819) 85.0 POTASSIUM-STAT [id number] 10:11:00 Test Item Value Reference Range Interpretation Comments POTASSIUM (BEAKER) (test code = 6.0 meq/L 3.6-5.5 HH 379) Sample is not hemolyzedGLUCOSE-STAT [id number] 10:11:00 Test Item Value Reference Range Interpretation Comments GLUCOSE RANDOM (BEAKER) (test code 187 mg/dL 70-110 H = 652) HGB/HCT (H&H) - STAT [id number] 10:11:00 Test Item Value Reference Range Interpretation Comments HEMOGLOBIN (BEAKER) (test code = 10.3 GM/DL 13.0-16.8 L 410) HEMATOCRIT (BEAKER) (test code = 30.0 % 40.0-50.0 L 411) SODIUM NA-STAT [id number] 10:10:00 Test Item Value Reference Range Interpretation Comments SODIUM (BEAKER) (test code = 381) 135 meq/L 136-145 L BLOOD GAS, [id number] 09:42:00 Test Item Value Reference Range Interpretation Comments PH ARTERIAL (BEAKER) (test code = 7.47 7.35-7.45 H 383) PCO2 ARTERIAL (BEAKER) (test code 32 mm Hg 35-45 L = 384) PO2 ARTERIAL (BEAKER) (test code 268 mm Hg 80-90 H = 385) O2 SATURATION ARTERIAL (BEAKER) 99.7 % 96.0-97.0 H (test code = 386) HCO3 ARTERIAL (BEAKER) (test code 24 mmol/L 21-29 = 388) BASE EXCESS ARTERIAL (BEAKER) -1.0 mmol/L -2.0-3.0 (test code = 387) PATIENT TEMPERATURE (BEAKER) 32.0 (test code = 1818) FIO2 (BEAKER) (test code = 1819) 20.0 GLUCOSE-STAT [id number] 09:42:00 Test Item Value Reference Range Interpretation Comments GLUCOSE RANDOM (BEAKER) (test code 199 mg/dL 70-110 H = 652) HGB/HCT (H&H) - STAT [id number] 09:42:00 Test Item Value Reference Range Interpretation Comments HEMOGLOBIN (BEAKER) (test code = 9.1 GM/DL 13.0-16.8 L 410) HEMATOCRIT (BEAKER) (test code = 27.0 % 40.0-50.0 L 411) SODIUM NA-STAT [id number] 09:42:00 Test Item Value Reference Range Interpretation Comments SODIUM (BEAKER) (test code = 381) 131 meq/L 136-145 L POTASSIUM-STAT [id number] 09:42:00 Test Item Value Reference Range Interpretation Comments POTASSIUM (BEAKER) (test code = 7.1 meq/L 3.6-5.5 HH 379) Sample not hemolyzedPOTASSIUM-STAT [id number] 09:19:00 Test Item Value Reference Range Interpretation Comments POTASSIUM (BEAKER) (test code = 4.9 meq/L 3.6-5.5 379) BLOOD GAS, [id number] 09:19:00 Test Item Value Reference Range Interpretation Comments PH ARTERIAL (BEAKER) (test code = 7.35 7.35-7.45 383) PCO2 ARTERIAL (BEAKER) (test code 41 mm Hg 35-45 = 384) PO2 ARTERIAL (BEAKER) (test code 351 mm Hg 80-90 H = 385) O2 SATURATION ARTERIAL (BEAKER) 99.7 % 96.0-97.0 H (test code = 386) HCO3 ARTERIAL (BEAKER) (test code 24 mmol/L 21-29 = 388) BASE EXCESS ARTERIAL (BEAKER) -2.9 mmol/L -2.0-3.0 L (test code = 387) PATIENT TEMPERATURE (BEAKER) 32.7 (test code = 1818) FIO2 (BEAKER) (test code = 1819) 75.0 SODIUM NA-STAT [id number] 09:19:00 Test Item Value Reference Range Interpretation Comments SODIUM (BEAKER) (test code = 381) 130 meq/L 136-145 L GLUCOSE-STAT [id number] 09:19:00 Test Item Value Reference Range Interpretation Comments GLUCOSE RANDOM (BEAKER) (test code 167 mg/dL 70-110 H = 652) HGB/HCT (H&H) - STAT [id number] 09:19:00 Test Item Value Reference Range Interpretation Comments HEMOGLOBIN (BEAKER) (test code = 9.3 GM/DL 13.0-16.8 L 410) HEMATOCRIT (BEAKER) (test code = 27.0 % 40.0-50.0 L 411) HGB/HCT (H&H) - STAT [id number] 08:27:00 Test Item Value Reference Range Interpretation Comments HEMOGLOBIN (BEAKER) (test code = 14.4 GM/DL 13.0-16.8 410) HEMATOCRIT (BEAKER) (test code = 42.0 % 40.0-50.0 411) CALCIUM, [id number] 08:27:00 Test Item Value Reference Range Interpretation Comments CALCIUM IONIZED (BEAKER) (test 1.13 mmol/L 1.12-1.27 code = 698) PH, BLOOD (BEAKER) (test code = 7.41 1810) BLOOD GAS, [id number] 08:27:00 Test Item Value Reference Range Interpretation Comments PH ARTERIAL (BEAKER) (test code = 7.42 7.35-7.45 383) PCO2 ARTERIAL (BEAKER) (test code 37 mm Hg 35-45 = 384) PO2 ARTERIAL (BEAKER) (test code 172 mm Hg 80-90 H = 385) O2 SATURATION ARTERIAL (BEAKER) 99.2 % 96.0-97.0 H (test code = 386) HCO3 ARTERIAL (BEAKER) (test code 24 mmol/L 21-29 = 388) BASE EXCESS ARTERIAL (BEAKER) -0.9 mmol/L -2.0-3.0 (test code = 387) PATIENT TEMPERATURE (BEAKER) 36.0 (test code = 1818) FIO2 (BEAKER) (test code = 1819) 55.0 GLUCOSE-STAT [id number] 08:27:00 Test Item Value Reference Range Interpretation Comments GLUCOSE RANDOM (BEAKER) (test code 115 mg/dL 70-110 H = 652) SODIUM NA-STAT [id number] 08:27:00 Test Item Value Reference Range Interpretation Comments SODIUM (BEAKER) (test code = 381) 136 meq/L 136-145 POTASSIUM-STAT [id number] 08:27:00 Test Item Value Reference Range Interpretation Comments POTASSIUM (BEAKER) (test code = 4.7 meq/L 3.6-5.5 379) RAD, CHEST, 1 VIEW, NON [id number] 07:28:00Reason for exam:->[facility] 1960 Sex: MFINAL REPORT INDICATION: preop COMPARISON: None TECHNIQUE: Single frontal view of the chest. FINDINGS: Lungs and pleura: Minimal left basilar subsegmental atelectasis No effusion.Heart and mediastinum: Normal heart size. Unremarkable mediastinal contours.Osseous structures: No acute abn ormality.Other: None. IMPRESSION: No acute intrathoracic abnormality. Signed: Janey Arthur Verified Date/Time: 05/28/2020 07:28:02 Reading Location: [facility] Radiology Reading Room SARS-COV2/RT-PCR ([facility])2020-05-25 18:19:00 Test Item Value Reference Range Interpretation Comments SARS-COV2/RT-PCR (test Negative Not Detected, Negative, code = 3925677) See external report for linked test SARS-COV-2 PERFORMING LAB [facility] (test code = 6445870) Negative result for this test determines that SARS-CoV-2 RNA was not present in the specimen above the Limit of Detection (LOD). However, Negative results do not preclude SARS-CoV-2 infection and should not be used as the sole basis for treatment or patient management decisions. Negative results must be combined with clinical observations, patient history, and epidemiological information. A false negative result may occur if a specimen is improperly collected, transported or handled. A false negative result should be considered if patient's recent exposures or clinical presentation indicate that COVID-19 (SARS-CoV-2) is likely and diagnostic tests for other causes of illness are negative. Re-testing should be considered in cases of suspected false negatives.The limit of detection for this assay is 800 copies/mL.This SARS CoV-2 test is a real-time RT-PCR test intended for the qualitative detection of nucleic acid from SARS-CoV-2 in a nasopharyngeal swab specimen collected from individuals suspected of COVID-19 by their healthcare provider.This test has not been Food and Drug Administration (FDA) cleared or approved. This is a modified version of an approved Emergency Use Authorization (EUA) and is in the process of review by the FDA. Once authorized by the FDA, the issued EUA will be effective until the declaration that circumstances exist justifying the authorization of the emergency use ofin vitro diagnostic tests for detection and/or diagnosis of COVID-19 is terminated under Section 564(b)(2) of the Act or the EUA is revoked under Section 564(g) of the Act.Fact Sheet for Healthcare Prov iders:https://www.[employer]/sites/default/files/product/documents/Fact_Sheet_HC _Qxeurhsrm_Ptgo_OFUS-MlA-5.pdfFact Sheet for Healthcare Patients:https://www.[employer]/sites/default/files/product/docume nts/Soyf_Zhshj_Zeqvvmjf_Omda_PZYY-YxO-7.pdfPerforming Laboratory:[facility] [place], [place] [address]alo Parada.[place], [place] [address]BKMXKIBSEN [id number] 11:46:00 Test Item Value Reference Range Interpretation Comments HEMOGLOBIN A1C (BEAKER) (test code = 5.8 % 4.3-6.1 368) COMPREHENSIVE METABOLIC [id number] 10:42:00 Test Item Value Reference Range Interpretation Comments TOTAL PROTEIN 7.7 gm/dL 6.0-8.3 (BEAKER) (test code = 770) ALBUMIN (BEAKER) 4.5 g/dL 3.5-5.0 (test code = 1145) ALKALINE PHOSPHATASE 61 U/L 40-150 (BEAKER) (test code = 346) BILIRUBIN TOTAL 0.6 mg/dL 0.2-1.2 (BEAKER) (test code = 377) SODIUM (BEAKER) (test 137 meq/L 136-145 code = 381) POTASSIUM (BEAKER) 4.3 meq/L 3.5-5.1 (test code = 379) CHLORIDE (BEAKER) 102 meq/L 98-107 (test code = 382) CO2 (BEAKER) (test 23 meq/L 22-29 code = 355) BLOOD UREA NITROGEN 12 mg/dL 7-21 (BEAKER) (test code = 354) CREATININE (BEAKER) 0.70 mg/dL 0.57-1.25 (test code = 358) GLUCOSE RANDOM 95 mg/dL 70-105 (BEAKER) (test code = 652) CALCIUM (BEAKER) 9.6 mg/dL 8.4-10.2 (test code = 697) AST (SGOT) (BEAKER) 19 U/L 5-34 (test code = 353) ALT (SGPT) (BEAKER) 25 U/L 6-55 (test code = 347) EGFR (BEAKER) (test 115 ESTIMATE D GFR IS code = 1092) mL/min/1.73 sq NOT ACCURA TE m CREATININE CLEARANCE IN PREDICTING GLOMERULAR FILTRATION RATE . ESTIMATED GFR I S NOT APPLICABLE FOR DIALYSIS PATIEN TS. Net Sql Developer ID - BILL CLIPID [id number] 10:42:00 Test Item Value Reference Range Interpretation Comments TRIGLYCERIDES (BEAKER) (test code = 134 mg/dL 540) CHOLESTEROL (BEAKER) (test code = 125 mg/dL 631) HDL CHOLESTEROL (BEAKER) (test code 39 mg/dL = 976) LDL CHOLESTEROL CALCULATED (BEAKER) 59 mg/dL (test code = 633) Triglyceride Reference Range: Low Risk <150 Borderline 150-199 High Risk 200- 499 Very High Risk >=500Cholesterol Reference Range: Low Risk <200 Borderline 200-239 High Risk >240HDL Cholesterol Reference Range: Low Risk >=60 High Risk <40LDL Cholesterol Reference Range: Optimal <100 Near Optimal 100-129 Borderline 130-159 High 160-189 Very High >=190 Net Sql Developer ID - BILL [id number] 10:34:00 Test Item Value Reference Range Interpretation Comments PARTIAL THROMBOPLASTIN TIME 29.8 seconds 22.5-36.0 (BEAKER) (test code = 760) PROTHROMBIN [id number] 10:33:00 Test Item Value Reference Range Interpretation Comments PROTIME (BEAKER) 13.4 seconds 11.9-14.2 (test code = 759) INR (BEAKER) (test 1.06 See_Comment [Automat ed message] code = 370) The system [employer] generated this result transmitted ref erence range: <=5.90. The reference range was not used to int erpret this result as normal/abnormal . Effective 08/08/2018: PT Reference Range ChangeNew: 11.9-14.2 Previous: 11.7- 14.7RECOMMENDED COUMADIN/WARFARIN INR THERAPY RANGESSTANDARD DOSE: 2.0-3.0 Includes: PROPHYLAXIS for venous thrombosis, systemic embolization; TREATMENT for venous thrombosis and/or pulmonary embolus.HIGH RISK: Target INR is 2.5-3.5 for patients wiht mechanical heart valves.CBC W/PLT COUNT & AUTO [id number] 10:25:00 Test Item Value Reference Range Interpretation Comments WHITE BLOOD CELL COUNT (BEAKER) 7.0 K/ L 3.5-10.5 (test code = 775) RED BLOOD CELL COUNT (BEAKER) 4.78 M/ L 4.63-6.08 (test code = 761) HEMOGLOBIN (BEAKER) (test code = 15.3 GM/DL 13.7-17.5 410) HEMATOCRIT (BEAKER) (test code = 44.0 % 40.1-51.0 411) MEAN CORPUSCULAR VOLUME (BEAKER) 92.1 fL 79.0-92.2 (test code = 753) MEAN CORPUSCULAR HEMOGLOBIN 32.0 pg 25.7-32.2 (BEAKER) (test code = 751) MEAN CORPUSCULAR HEMOGLOBIN CONC 34.8 GM/DL 32.3-36.5 (BEAKER) (test code = 752) RED CELL DISTRIBUTION WIDTH 12.2 % 11.6-14.4 (BEAKER) (test code = 412) PLATELET COUNT (BEAKER) (test 253 K/CU MM 150-450 code = 756) MEAN PLATELET VOLUME (BEAKER) 10.0 fL 9.4-12.4 (test code = 754) NUCLEATED RED BLOOD CELLS 0 /100 WBC 0-0 (BEAKER) (test code = 413) NEUTROPHILS RELATIVE PERCENT 55 % (BEAKER) (test code = 429) LYMPHOCYTES RELATIVE PERCENT 35 % (BEAKER) (test code = 430) MONOCYTES RELATIVE PERCENT 9 % (BEAKER) (test code = 431) EOSINOPHILS RELATIVE PERCENT 1 % (BEAKER) (test code = 432) BASOPHILS RELATIVE PERCENT 0 % (BEAKER) (test code = 437) NEUTROPHILS ABSOLUTE COUNT 3.85 K/ L 1.78-5.38 (BEAKER) (test code = 670) LYMPHOCYTES ABSOLUTE COUNT 2.42 K/ L 1.32-3.57 (BEAKER) (test code = 414) MONOCYTES ABSOLUTE COUNT (BEAKER) 0.60 K/ L 0.30-0.82 (test code = 415) EOSINOPHILS ABSOLUTE COUNT 0.10 K/ L 0.04-0.54 (BEAKER) (test code = 416) BASOPHILS ABSOLUTE COUNT (BEAKER) 0.03 K/ L 0.01-0.08 (test code = 417) IMMATURE GRANULOCYTES-RELATIVE 0 % 0-1 PERCENT (BEAKER) (test code = 7715)
[2021-12-01 17:38] VITALS: BMI 29.2
[2021-12-01] MEDS: CEFAZOLIN SODIUM 2 GM in NA CHLORIDE 0.9% 100 ML IVPB SCH (18:15)
[2021-12-01] MEDS: MORPHINE 2 MG/ML SYR IV PRN (18:23)
--- NOTE | 2021-12-01 22:18 | P.OP ---
Preoperative diagnosis: right knee osteoarthritis Postoperative diagnosis: same Primary procedure: right total knee arthroplasty Anesthesia: general Estimated blood loss: 50 cc Specimen: right knee bone remnants Findings: see dictation Operative Technique: Indication For Procedure: Shawn is an 61 year-old male presenting to my clinic with signs, symptoms and x-ray findings consistent with right knee osteoarthritis. I discussed with the patient at length risks and benefits associated with operative and nonoperative treatment. He had failed conservative treatment measures including corticosteroid injections, viscosupplementation injections and had significant difficulties with ADLs secondary to his pain. We discussed operative treatment and elected to proceed with right total knee arthroplasty. He expressed understanding and elected to proceed with operative treatment. Description Of Procedure: After informed consent was obtained, the patient was identified in the preoperative holding area. The right lower extremity was marked. The patient was then taken to the PACU where he underwent a right lower extremity adductor canal block performed by Anesthesia. He was then taken to the operating room, transferred to the operating table in supine fashion, and placed under general anesthesia. His right lower extremity was then prepped and draped in usual sterile fashion. A time-out was initiated. The correct patient and procedure were confirmed and identified. The patient did receive his preoperative prophylactic antibiotics. The right lower extremity was then exsanguinated and tourniquet was inflated to 300 mmHg. Approximately 15 cm longitudinal incision was made centered over the anterior aspect of the right knee. Dissection was then taken to the extensor mechanism and a medial parapatellar arthrotomy was performed. The patella was everted and dislocated laterally with some difficulty and the knee was flexed and the fat pad was exci sed. Medial meniscus, lateral meniscus and ACL were all excised exposing the distal femur. Excess hypertrophic synovium was also excised within the suprapatellar pouch. The patient had an MRI of his right knee preoperatively for surgical planning and creation of cutting blocks. The cutting block was then placed over the distal femur and pins were then placed. The distal femoral cutting block was then placed over the pins. Knee joint was then used to ensure proper depth cut and the distal femur was then cut. The chamfer cutting guide was then placed over the distal end of the femur. Anterior, posterior cuts as well as anterior and posterior chamfer cuts were then made again confirming proper depth of the cut using an Noam wing. Excess bone remnants were then sent to pathology for further evaluation. Next, attention was taken to the proximal tibia. A tibial jig and tibial cutting block was then placed on proximal aspect of the left tibia and locked into position. Pins were then placed and alignment guide was then used to confirm proper alignment of the cut and then coronal and sagittal planes. Once this was confirmed, the cutting jig was placed over the pins and the proximal tibia was cut. Sizing trays were then selected and size 10 mm spacer was used. After this was completed there was good overall balance in flexion and extension with the 10 mm spacer. Next, the trial implants were then placed using the size 9 standard CR femur and a size G tibia with an 10 mm poly. There was overall good range of motion and good stability trial implants were then removed. The wound was then irrigated thoroughly with normal saline and the knee was then injected with 30 cc of 0.5% Marcaine both in the posterior capsule and medial and lateral gutters as well as quadriceps tendon and periosteum. The tibia was then punched and marked after the patella button was placed. The femur was drilled. The cement was then prepared on the back table. Cement was then placed first on the tibial surface followed by size G tibia. Excess cement was removed with [place] elevators. Size 9 standard CR femur was then placed on the distal femur after cement was placed on the distal femur. Excess cement was then removed and a size 10 mm trial poly was then placed. The knee was held in extension as the cement hardened. Undersurface of the patella was prepared debriding osteophytes using rongeurs as well as osteophytes had been debrided off the proximal tibia with rongeurs and osteotomes to aid with the medial tightness. Cement was placed on the undersurface of the patella after it was cut and a size 32 patella was placed. Once the cement was hardened, the knee was ranged, there was good overall stability both in flexion, extension and as well as stability with varus and valgus stresses. Trial poly was then removed and a size 10 mm CR poly was then placed and locked into position. The knee was then ranged again. There was good overall range of motion both for flexion and extension with good stability. The wound was then irrigated again thoroughly with normal saline using pulse lavage. Tourniquet was let down. Hemostasis was achieved using Bovie electro cautery. Extensor mechanism was then approximated using a #1 Vicryl both in interrupted and running fashion. The fascia was then approximated using 0 Vicryl. Subcutaneous tissue was approximated with a 2-0 Vicryl. Skin was approximated using margarita. Sterile dressings were applied. The patient was awakened and transferred back in stable condition Complications: None Implants: Biomet Lambert Persona 9 CR femur, G tibia, 32 patella, 10 CR poly Fluids & blood products: per anesthesia record; TT: 77 mins @ 300 mmHg Transferred to: Recovery Room Condition: Good
[2021-12-01] MEDS: HYDROCODONE/APAP 7.5/325 MG TAB PO PRN (22:20)
[2021-12-02] MEDS: CEFAZOLIN SODIUM 2 GM in NA CHLORIDE 0.9% 100 ML IVPB SCH ×2 (00:54→08:06)
[2021-12-02 04:32] LABS: Hematocrit 31.7 % (39.6-49.0)
[2021-12-02] MEDS: ENOXAPARIN 30 MG/0.3 ML SQ SCH ×2 (05:34→08:07)
[2021-12-02] MEDS: MORPHINE 2 MG/ML SYR IV PRN (05:36)
[2021-12-02 08:36] VITALS: O2SAT 95
[2021-12-02] MEDS ORDERED: CELECOXIB 100 MG CAPSULE PO SCH (09:00)
[2021-12-02] MEDS ORDERED: ATORVASTATIN 20 MG TAB PO SCH (09:00)
[2021-12-02] MEDS: HYDROCODONE/APAP 7.5/325 MG TAB PO PRN (09:23)
[2021-12-02 11:54] VITALS: BP 99/46; TEMP 98.2
--- NOTE | 2021-12-02 22:19 | P.DS ---
Admission Date: 12/01/21 Discharge Date: 12/02/21 Disposition: DC HOME/HOME HEALTH CARE Discharge Condition: GOOD Reason for Admission: R TKA Consultations: none Procedures: R TKA on 12/01/2021 Brief History of Present Illness: Shawn is a 61-year-old male who underwent right total knee arthroplasty on December 01, 2021 and is admitted to the floor in stable condition. Hospital Course: Shawn underwent surgery on December 01 as admitted to the floor postoperatively to mobilize with physical therapy and for pain control. His vital signs remained stable while on the floor. He mobilized safely with physical therapy on December 02, 2021. While in the hospital he was given Lovenox for DVT prophylaxis. He was discharged with Xarelto which she will take once daily after discharge for DVT prophylaxis. Home health physical therapy was consulted to aid with mobilization while at home. He will follow-up in 2 weeks for reevaluation and removal of margarita. Vital Signs/Physical Exam: Temp Pulse Resp BP Pulse Ox 98.2 F 62 16 99/46 L 96 12/02/21 11:53 12/02/21 11:53 12/02/21 11:53 12/02/21 11:53 12/02/21 11:53 Laboratory Data at Discharge: WBC 6.30 K/uL (4.3-10.9) 11/26/21 14:00 Hgb 11.4 g/dL (13.6-17.9) L D 12/02/21 04:15 Hct 31.7 % (39.6-49.0) L 12/02/21 04:15 Plt Count 216 K/uL (152-406) 11/26/21 14:00 PT 11.8 SECONDS (9.5-12.5) 11/26/21 14:00 INR 1.07 11/26/21 14:00 APTT 32.0 SECONDS (24.3-36.9) 11/26/21 14:00 Sodium 139 mmol/L (136-145) 11/26/21 14:00 Potassium 4.0 mmol/L (3.5-5.1) 11/26/21 14:00 BUN 13 mg/dL (7-18) 11/26/21 14:00 Creatinine 0.75 mg/dL (0.55-1.3) 11/26/21 14:00 Glucose 92 mg/dL (74-106) 11/26/21 14:00 Home Medications: Atorvastatin Calcium [Lipitor*] 20 mg PO DAILY 11/26/21 Hydrocodone 7.5/APAP 325 [[place] 7.5/325 mg*] 1 tab PO Q4H PRN tab 12/02/21 Physician Discharge Instructions: keep dressing clean and dry; begin Xarelto tomorrow, Monday, December 03 with breakfast and take once daily. use bilateral AURORA hose x 2 weeks to aid with swelling Diet: Regular Activity: Weight bearing as tolerated Followup: Travon Ham MD [ACTIVE - CAN ADMIT] - 1-2 Weeks (Call to schedule an appointment)
== END 2021-12-02 14:29 | disposition home health service (06) ==
LOC: OR 08:53 → 2ND 15:51
PROVIDERS: ADMIT Orthopaedic Surgery Sports Medicine; ATTEND Orthopaedic Surgery Sports Medicine
PROC: 0SRC069 Replacement of Right Knee Joint with Oxidized Zirconium on Polyethylene Synthetic Substitute, Cemented, Open Approach (ICD-10-PCS; principal; 2021-12-01 11:00)
DX: M17.11 Unilateral primary osteoarthritis, right knee (principal); Z20.822 Contact with and (suspected) exposure to COVID-19
CPT/HCPCS: 27447; 93005; 85025; 80048; 36415 ×3; 85610; 88304; 88311; 85730; 85018 ×2; 85014 ×2; 71046; 73560; 97110; 97116; 97139; 97161; 94010; 87811; J2704; J0171; J2001 ×2; J1650 ×2; J2250; J3010; J1100 ×2; J2270 ×2; J1170 ×3; J0690; J7120 ×2; J2405; G0379; G0378 ×2; 88305

== ENCOUNTER 2022-02-23 10:03 | Observation (INO) | payer BC ==
[2022-02-11 14:27] LABS: Absolute Lymphocytes (CBC) 2.1 K/uL (0.7-4.9); Lymphocytes % 33.3 % (15.3-44.8); MCV 95.4 fL (80-100); MPV 7.8 fL (7.6-11.3); RBC Red Blood Cell Count 4.51 M/uL (4.33-5.43)
[2022-02-11 14:32] LABS: Protime INR 1.09
[2022-02-11 14:37] LABS: SARS-CoV-2 Antigen Rapid Res Negative (Negative)
[2022-02-23] MEDS ORDERED: Ringers Lactate 1,000 ML IV ONE ×2 (10:19→14:34)
[2022-02-23] MEDS ORDERED: CEFAZOLIN SODIUM 2 GM/VIAL ONE (10:19)
[2022-02-23] MEDS ORDERED: MIDAZOLAM HCL 2 MG/2 ML INJ ONE (11:23)
[2022-02-23] MEDS ORDERED: dexAMETHasone 10 MG/ML VIAL ONE ×2 (11:23→12:15)
[2022-02-23] MEDS ORDERED: BUPIVACAINE 0.25% PF 30 ML VIAL ONE (11:23)
[2022-02-23] MEDS ORDERED: EPINEPHRINE/PF 1 MG/ML AMP ONE (11:23)
[2022-02-23] MEDS ORDERED: FENTANYL CITR 100 MCG/2 ML ONE (11:23)
[2022-02-23] MEDS ORDERED: LIDOCAINE 1% MPF 5 ML VIAL ONE (11:23)
[2022-02-23] MEDS ORDERED: LIDOCAINE 1% W/EPI 1:100,000 30 ML VIAL ONE (11:36)
[2022-02-23] MEDS ORDERED: TRANEXAMIC ACID 1,000 MG/10 ML VIAL IV ONE (11:36)
[2022-02-23] MEDS ORDERED: HYDROMORPHONE HCL 1 MG/ML INJ ONE (12:06)
[2022-02-23] MEDS ORDERED: propofoL 200 MG/20 ML VIAL IV ONE (12:15)
[2022-02-23] MEDS ORDERED: KETOROLAC 30 MG/ML INJ ONE (12:15)
[2022-02-23] MEDS ORDERED: LIDOCAINE 2% MPF 5 ML VIAL ONE (12:16)
[2022-02-23] MEDS ORDERED: KETAMINE HCL 500 MG/5 ML VIAL ONE (12:16)
[2022-02-23] MEDS ORDERED: ONDANSETRON 4 MG/2 ML VIAL ONE ×2 (12:17→15:31)
[2022-02-23] MEDS ORDERED: NS 0.9% VIAL 20 ML ONE (12:58)
[2022-02-23] MEDS ORDERED: ONDANSETRON 4 MG/2 ML VIAL IV PRN (15:00)
[2022-02-23] MEDS ORDERED: ACETAMINOPHEN 325 MG TABLET PO PRN (15:00)
[2022-02-23] MEDS ORDERED: DOCUSATE NA 100 MG CAP PO PRN (15:00)
--- NOTE | 2022-02-23 15:00 | P.BOP ---
Preoperative diagnosis: left knee osteoarthritis Postoperative diagnosis: same Primary procedure: left total knee arthroplasty Pattern Lease Inspector: NONE,NONE Estimated blood loss: 50 cc Specimen: left knee bone remnants Findings: see dictation Anesthesia: General Complications: None Implants: Biomet Persona 8 CR femur, G tibia, 32 patella, 12 CR poly Fluids & blood products: per anesthesia record; TT: 66 mins @ 300 mmHg Transferred to: Recovery Room Condition: Good
[2022-02-23] MEDS ORDERED: TRAMADOL HCL 50 MG TAB PO PRN (15:03)
[2022-02-23] MEDS: HYDROMORPHONE HCL 1 MG/ML INJ ONE ×2 (15:30→15:35)
[2022-02-23] MEDS ORDERED: MORPHINE 2 MG/ML SYR IV PRN (15:56)
--- OUTSIDE RECORDS SUMMARY | 2022-02-23 15:58 | XMS REPORT | Continuity of Care Document ---
:1960 Author Organization [facility] t Address [address] [place] [address] Dr. Naik [address] [place] [id number] Care Team Providers Name Role Phone STEFFANY DEWEY Attending Clinician Unavailable JESSE MYERS Attending Clinician Unavailable Sunny CARREON, Vania Gamino Attending Clinician [phone] Jeffy Hu DO Attending Clinician Rick RODRIGUEZ, Atul Gauthier Attending Clinician [phone] Gunner RODRIGUEZ, Oliva Baker Attending Clinician [phone] Jesse Myers MD Attending Clinician Alyssa RODRIGUEZ, Palomo Key Attending Clinician [phone] Dustin RODRIGUEZ, Alverto Martines Attending Clinician Flynn Serrato MD, John García Attending Clinician [phone] Jorge RODRIGUEZ, Gerardo Rodriguez Attending Clinician Allison RODRIGUEZ, Jacklyn Montilla Attending Clinician Mary Grace RODRIGUEZ, Rey Cool Attending Clinician [phone] STEFFANY DEWEY Admitting Clinician Unavailable JESSE MYERS Admitting Clinician Unavailable Payers Payer Name Policy Type Policy Number Effective Date Expiration Date S alexandra BCBS PPO POS EPO [id number] 2015 00:00:00 CHOICE Problems Condition Condition Condition [...] [facility] 2 By 2 By 05-28 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 Social History Social Habit Start Date Stop Date Quantity Comments Source History of Chews Tobacco [facility] tobacco use Medical Cent[facility] r History SDOH [facility] Alcohol Frequency Medical Center History SDOH [facility] Alcohol Std Medical Cente r Drinks History SDOH [facility] Alcohol Binge Medical Bina ter Alcohol intake 2021-03-30 2021-03-30 Current drinker of [...] Date Source Never smoker [facility] Medications Ordered Filled Start Stop Current Ordering Indication Dosage Frequency Signature Comments Components Source Medication Medication Date Date Medication? Clinician (SIG) Name Name tiffany Yes 80mg QD Take [address] [facility] (LIPITOR) 1-25 by mouth Luke s 80 MG 13:26: daily. Medical tablet [address] [place] [address] aspirin 81 Yes 81mg QD Take [address] MG EC 1-25 by mouth [facility] tablet 13:26: daily. [address] [facility] Yes 80mg QD Take [address] [facility] (LIPITOR) 1-25 by mouth Luke s 80 MG 13:26: daily. Medical tablet [address] [place] [address] aspirin 81 Yes 81mg QD Take [address] MG EC 1-25 by mouth [facility] tablet 13:26: daily. [address] metoprolol No 12.5mg Q.5D Take 0.[address] tartrate 3-23 -25 tablets [facility] (LOPRESSOR) 00:00: 00:00 (12.5 mg M edical 25 MG 00 :00 total) by Center tablet mouth 2 (two) times daily. metoprolol No 12.5mg Q.5D Take 0.[address] tartrate [...] kg Heart rate 2021-04-06 10:38:53 70 /min [facility] Oxygen saturation in 2021-04-06 10:38:53 97 /min [facility] Arterial blood by Medical Ce nter Pulse oximetry Systolic blood 2021-04-06 10:38:46 109 mm[Hg] [facility] Diastolic blood 2021-04-06 10:38:46 73 mm[Hg] [facility] Body temperature 2021-04-06 10:38:44 36.61 Josefina [facility] Respiratory rate 2021-04-06 10:38:20 18 /min [facility] Body weight 2021-04-05 05:00:00 103.284 kg [facility] BMI 2021-04-05 05:00:00 31.76 kg/m2 [facility] Body height 2021-03-30 14:25:00 180.3 cm [facility] Procedures Procedure Date / Time Performing Clinician Source Performed BASIC METABOLIC PANEL (7) 2021-04-04 04:45:[address] [facility] POCT-GLUCOSE METER 2021-04-03 16:00:00 Flynn Serrato, [facility] POCT-GLUCOSE METER 2021-04-03 11:38:00 Flynn Serrato [facility] CBC W/PLT COUNT & AUTO 2021-04-03 06:39:00 DustinAlverto [facility] CBC W/PLT COUNT & AUTO 2021-04-03 06:39:00 Jeff Chansteven Martines [facility] POCT-GLUCOSE METER 2021-04-03 06:04:00 Alverto Chan Bobbi [facility] MAGNESIUM 2021-04-03 04:15:00 Maddison [facility] PHOSPHORUS 2021-04-03 04:15[facility] (7) 2021-04-03 04:15:00 Alverto Chan mark [facility] POCT-GLUCOSE METER 2021-04-03 01:46:00 Jeff Chansteven Martines [facility] POCT-GLUCOSE METER 2021-04-02 15:45:00 Jeff Chansteven [facility] POCT-GLUCOSE METER 2021-04-02 11:37:00 Dustin [facility] POCT-GLUCOSE METER 2021-04-02 06:05:00 Alverto Chan Bobbi [facility] MAGNESIUM 2021-04-02 04:36:00 Ankita Duron [facility] COMPREHENSIVE METABOLIC 2021-04-02 04:36:[address] [facility] CBC W/PLT COUNT & AUTO 2021-04-02 04:36:00 Ankita Duron [facility] PHOSPHORUS 2021-04-02 04:36:00 Maddison [facility] CBC W/PLT COUNT & AUTO 2021-04-02 04:36:00 Ankita Duron [facility] POCT-GLUCOSE METER 2021-04-01 23:56:00 Alverto Chan [facility] POCT-GLUCOSE METER 2021-04-01 17:14:00 Alverto Chan [facility] POCT-GLUCOSE METER 2021-04-01 11:25:00 Alverto Chan [facility] POCT-GLUCOSE METER 2021-04-01 03:52:00 Alyssa [facility] MAGNESIUM 2021-04-01 03:48:00 Ankita Duron [facility] COMPREHENSIVE METABOLIC 2021-04-01 03:48:[address] [facility] CBC W/PLT COUNT & AUTO 2021-04-01 03:48:00 Ankita Duron [facility] TRIGLYCERIDES 2021-04-01 03:48:[facility] 2021-04-01 03:48:[facility] W/PLT COUNT & AUTO 2021-04-01 03:48:00 Ankita Duron [facility] POCT-GLUCOSE METER 2021-04-01 00:34:00 [facility] PO[facility]SE METER 2021-03-31 22:51:00 [facility] PO[facility]UCOSE METER 2021-03-31 17:54:00 [facility] PO[facility]SE METER 2021-03-31 11:07:00 [facility] POCT-GLUCOSE METER 2021-03-31 07:25:00 [facility] W/PLT COUNT & AUTO 2021-03-31 03:20:00 Ankita Duron [facility] CBC W/PLT COUNT & AUTO 2021-03-31 03:20:00 Ankita Duron [facility] BLOOD GAS, ARTERIAL 2021-03-31 03:01:00 Ankita Duron [facility] MAGNESIUM 2021-03-31 03:00:00 Ankita Duron [facility] CALCIUM, IONIZED 2021-03-31 03:00:00 Ankita Duron [facility] COMPREHENSIVE METABOLIC 2021-03-31 03:00:[address] [facility] LACTIC ACID, VENOUS 2021-03-31 03:00:00 Ankita Duron [facility] STD PANEL - CT/GC RNA 2021-03-31 02:02:00 Ankita Duron [facility] URINE CULTURE 2021-03-31 02:02:00 Ankita Duron [facility] URINALYSIS W/ REFLEX URINE 2021-03-31 02:02:[address] [facility] GENITAL CULTURE + GRAM 2021-03-31 02:00:00 Ankita uDron [facility] POCT-GLUCOSE METER 2021-03-31 00:06:00 [facility] BLOOD GAS, ARTERIAL 2021-03-30 20:26:00 Jacqueline [facility] PROTHROMBIN TIME/INR 2021-03-30 18:40:00 Malia Phillips [facility] CBC W/PLT COUNT & AUTO 2021-03-30 18:26:00 Washburn [facility] COMPREHENSIVE METABOLIC 2021-03-30 18:26:00 Washburn, [facility] MAGNESIUM 2021-03-30 18:26:00 Wash[place], [facility] PHOSPHORUS 2021-03-30 18:26:00 Wash[place], [facility] CBC W/PLT COUNT & AUTO 2021-03-30 18:26:00 [facility] ([facility] 2021-03-30 18:26:00 Washburn [facility] BLOOD GAS, ARTERIAL 2021-03-30 18:25[facility] SPUT[facility] + GRAM 2021-03-30 18:17:00 Washburn [facility] XR CHEST 1 VIEW PORTABLE / 2021-03-30 17:30:00 Jacklyn Cooper [facility] POCT-GLUCOSE METER 2021-03-30 17:00:00 [facility] T[facility]AM 2021-03-30 15:53:00 Gerardo Patel [facility] LAPAROTOMY, EXPLORATORY 2021-03-30 14:25:00 Gerardo Patel [facility] HERNIORRHAPHY, VENTRAL 2021-03-30 14:25:00 Gerardo Patel [facility] TYPE AND SCREEN, AUTOMATED 2021-03-30 14:09:00 Rey Brody [facility] XR ABDOMEN / KUB 1 VIEW 2021-03-30 12:15:00 [facility] POCT-GLUCOSE METER 2021-03-30 12:08:00 [facility] SARS-COV2/RT-PCR ([facility] & 2021-03-30 03:40:00 Atul Cabrera [facility] REF LABS) [facility] CT ABDOMEN/PELVIS WITH IV 2021-03-30 02:30:00 Vania Correa [facility] CONTRAST [facility] COMPREHENSIVE METABOLIC 2021-03-29 23:40:00 Vania Correa I [facility] PANEL [facility] URINALYSIS W/ REFLEX URINE 2021-03-29 23:29:00 Vania Correa [facility] CULTURE [facility] ECG 12-LEAD 2021-03-29 22:27:[address] [facility] es [facility] ECG 12-LEAD 2021-03-29 22:27:41 Unknown, Hl7 Doctor [facility] ECG 12-LEAD 2021-03-29 22:27:41 Unknown, Hl7 Doctor [facility] ED ECG INTERPRETATION 2021-03-29 22:27:00 CorreaVania harris [facility] CBC W/PLT COUNT & AUTO 2021-03-29 22:19:00 Sarah Correaandra [facility] LIPASE 2021-03-29 22:19:00 Correa Vania [facility] TROPONIN I 2021-03-29 22:19:00 [place] Vania [facility] CBC W/PLT COUNT & AUTO 2021-03-29 22:19:00 [place] [facility] EKG-SCANNED 2021-03-29 00:00:00 ProviderAltagracia [facility] Plan of Care Planned Activity Planned Date Details Comments Source Future Scheduled 2023-05-26 Lipid panel (procedure) [facility] Test 00:00:00 [code = 48675544] Medical Ce nter Future Scheduled 2023-05-26 Lipid panel (procedure) [facility] Test 00:00:00 [code = 39424266] Medical Ce nter Future Scheduled 2021-11-11 INFLUENZA VACCINE (#1) [facility] 00:00:00 [code = INFLUENZA Medical Ce nter VACCINE (#1)] Future Scheduled 2021-11-11 INFLUENZA VACCINE (#1) [facility] 00:00:00 [code = INFLUENZA Medical Ce nter VACCINE (#1)] Future Scheduled 2021-03-[address] [facility] Test 00:00:00 (12+) [code = [facility] Center DEPRESSION SCREENING (12+)] Future Scheduled 2021-03-[address] [facility] Test 00:00:00 (12+) [code = [facility] Center DEPRESSION SCREENING (12+)] Future Scheduled 2009-10-10 SHINGLES VACCINES ([address] [facility] Test 00:00:00 2) [code = SHINGLES [facility] VACCINES (1 of 2)] Future Scheduled 2009-10-10 SHINGLES VACCINES ([address] [facility] Test 00:00:00 2) [code = SHINGLES Medical Center VACCINES (1 of 2)] Future Scheduled 1978-10-10 DTAP/TDAP/TD [facility]ACCINES [facility] 00:00:00 (1 - Tdap) [code = Medical C enter DTAP/TDAP/TD VACCINES (1 - Tdap)] Future Scheduled 1978-10-10 DTAP/TDAP/TD VACCINES [facility] 00:00:00 (1 - Tdap) [code = Medical C enter DTAP/TDAP/TD VACCINES (1 - Tdap)] Future Scheduled 1977-10-10 HEPATITIS C [facility]CREENING [facility] 00:00:00 [code = HEPATITIS C [facility] Center SCREENING] Future Scheduled 1977-10-10 HEPATITIS C SCREENING [facility] 00:00:00 [code = HEPATITIS C [facility] Center SCREENING] Future Scheduled [address] [facility] Test 00:00:00 Counseling and Medical Cente r Screening (12+) [code = Tobacco Cessation Counseling and Screening (12+)] Future Scheduled 1965-10-[address] [facility] Test 00:00:00 0-64 YRS (1 - PCV) Medical C enter [code = PNEUMOCOCCAL VACCINE 0-64 YRS (1 - PCV)] Future Scheduled 1965-10-[address] [facility] Test 00:00:00 0-64 YRS (1 - PCV) Medical C enter [code = PNEUMOCOCCAL VACCINE 0-64 YRS (1 - PCV)] Future Scheduled 1960-04-12 COVID-19 VACCINE (#1) [facility] 00:00:00 [code = COVID-[address] VACCINE (#1)] Future Scheduled 1960-04-12 COVID-19 VACCINE (#1) [facility] 00:00:00 [code = COVID-[address] VACCINE (#1)] Future Scheduled 1959 CT Colonography (combo) [facility] Test 00:00:00 [code = CT Colonography [facility] (combo)] Future Scheduled 1959 Screening for malignant [facility] Test 00:00:00 neoplasm of colon Medical Ce nter (procedure) [code = 821795976] Future Scheduled 1959 Screening for malignant [facility] Test 00:00:00 neoplasm of colon Medical Ce nter (procedure) [code = 624172945] Future Scheduled 1959 Screening for malignant [facility] Test 00:00:00 neoplasm of colon Medical Ce nter (procedure) [code = 344586095] Future Scheduled 1959 Screening for malignant [facility] Test 00:00:00 neoplasm of colon Medical Ce nter (procedure) [code = 105883020] Future Scheduled 1960 Sigmoidoscopy [code = [facility] Sigmoidoscopy] Medical Cente r Future Scheduled 1959 CT Colonography (combo) [facility] Test 00:00:00 [code = CT Colonography [facility] (combo)] Future Scheduled 1959 Screening for malignant [facility] Test 00:00:00 neoplasm of colon Medical Ce nter (procedure) [code = 999013442] Future Scheduled 1959 Screening for malignant [facility] Test 00:00:00 neoplasm of colon Medical Ce nter (procedure) [code = 394316326] Future Scheduled 1959 Screening for malignant [facility] Test 00:00:00 neoplasm of colon Medical Ce nter (procedure) [code = 180616818] Future Scheduled 1959 Screening for malignant [facility] Test 00:00:00 neoplasm of colon Medical Ce nter (procedure) [code = 777765269] Future Scheduled 1960 Sigmoidoscopy [code = [facility] 00:[facility]:00 Sigmoidoscopy] Medical Cente r Encounters Start End Encounter Admission Attending Care Care Encounter Source Date/Time Date/Time Type Type Clinicians Facility Department ID 2022-01-26 Outpatient [facility] [id number] Common 16:37:02 [id number] [facility] 2021-11-30 Outpatient [facility] [id number] Common 08:00:01 [facility] 2021-09-16 Outpatient [facility] [id number] Common 14:17:03 [id number] [facility] 2020-12-19 [facility] Surgery [id number] [facility] 07:10:59 STEFFANY 2021-03-29 2021-04-06 [id number] [facility] 22:03:00 13:26:00 2021-03-29 2021-04-06 [facility] Vania Correa [facility] [id number] [facility] 22:03:00 13:26:00 Encounter Jeffy Hu, Atul Gauthier [facility]ro[facility]afsa, [facility] Humberto Alyssa, Palomo Chan, Alverto Serrato, John García 2021-03-29 2021-04-06 [facility] Vania Correa [facility] [id number] 22:03:00 13:26:00 Encounter Jeffy Hu, Atul Gauthier Medical Ray-Droddfelicitas, Oliva Baker [facility], Jesse Shah, Palomo Chan, Alverto Serrato, Michael 2021-03-30 2021-03-30 Surgery Jorge [facility] [id number] 15:00:00 17:30:00 [facility] 2021-03-30 2021-03-30 Surgery Jorge [facility] [id number] 15:00:00 17:30:00 [facility] 2021-03-30 2021-03-30 Anesthesia LuJacklyn peng [facility] [id number] 14:40:00 16:57:00 Event Mary Grace [facility] 2021-03-30 2021-03-30 Anesthesia Jacklyn Cooper [facility] [id number] 14:40:00 16:57:00 Event Mary Grace [facility] 2021-03-29 2021-03-29 Orders [facility] [id number] 00:00:00 00:00:00 [facility] 2021-03-29 2021-03-29 Travel [facility] [id number] [facility] 00:00:00 [facility] 2021-03-29 2021-03-29 Orders [facility] [id number] 00:00:00 00:00:00 Only [facility] 2021-03-29 2021-03-29 Travel [facility] [id number] [facility] 00:[facility]00 00:00:00 [facility] 2020-06-09 2020-06-09 Outpatient MAULIK DEWEY [facility] [id number] [facility] 00:00:00 00:00:00 STEFFANY 2020-05-26 2020-05-26 Outpatient MAULIK [facility] [id number] [facility] 00:00:00 00:00:00 2020-05-25 2020-05-25 Outpatient [facility] [id number] [facility] 00:00:00 00:00:00 2020-05-19 2020-05-19 Outpatient MAULIK DEWEY [facility] [id number] [facility] 00:00:00 00:00:00 STEFFANY Results Test Description Test Time Test Comments Results Result Comments Source Basic Metabolic Panel 2021-04-04 05:40:33 Test Item Value Reference Range Interpretation Comme nts Sodium (test code = 139 meq/L 362-121 9259-2) Potassium (test code = 3.7 meq/L 3.5-5.5 Speci men slightly 2823-3) hemolyzed Chloride (test code = 106 meq/L 98-106 2075-0) CO2 (test code = 21 meq/L -31 2027-9) BUN (test code = 11 mg/dL 10- 3094-0) Creatinine (test code = 0.61 mg/dL 0.50-1.20 Spec imen slightly 2160-0) hemolyzed Glucose (test code = 92 mg/dL 70-110 2345-7) Calcium (test code = 8.8 mg/dL 8.5-10.5 02144-0) EGFR (test code = 134 mL/min/1.73 [place] [address]-7) ACCURATE CREATININE LADARIUS BARRERA IN PREDICTING GLOMERULAR FILT RATION RATE. ESTIMATED GFR IS NOT APPLICABLE FOR DIALYSIS PATIEN TS. VANESSA (test code = VANESSA) Health And Wellness Director ID - [id number] [facility] Metabolic [id number] 05:40:33 Test Item Value Reference Range Interpretation Comments Sodium (test code = 139 meq/L 979-493 3574-2) Potassium (test 3.7 meq/L 3.5-5.5 Specimen sli ghtly code = 2823-3) hemolyzed Chloride (test code 106 meq/L 98-106 = 2075-0) CO2 (test code = 21 meq/L -2027-9) BUN (test code = 11 mg/dL - 3094-0) Creatinine (test 0.61 mg/dL 0.50-1.20 Specimen sl ightly code = 2160-0) hemolyzed Glucose (test code 92 mg/dL 70-110 = 2345-7) Calcium (test code 8.8 mg/dL 8.5-10.5 = 51786-7) EGFR (test code = 134 mL/min/1.73 [place] [address]-1) NOT ACCURATE CREATININE CLEARANCE IN PREDICTING GLOMERULAR FILTRATION RATE . ESTIMATED GFR I S NOT APPLICABLE FOR DIALYSIS PATIEN TS. VANESSA (test code = Health And Wellness Director ID - VANESSA) [id number] [facility] METABOLIC [id number] 05:40:33 Test Item Value Reference Range Interpretation Comments SODIUM (BEAKER) 139 meq/L 135-148 (test code = 381) POTASSIUM (BEAKER) 3.7 meq/L 3.5-5.5 Specimen slightly (test code = 379) hemolyzed CHLORIDE (BEAKER) 106 meq/L 98-106 (test code = 382) CO2 (BEAKER) (test 21 meq/L code = 355) BLOOD UREA NITROGEN 11 mg/dL - (BEAKER) (test code = 354) CREATININE (BEAKER) [...] S NOT APPLICABLE FOR DIALYSIS PATIEN TS. Health And Wellness Director ID - [id number] 16:12:31 Test Item Value Reference Range Interpretation Comments POC-Glucose Meter (test 107 mg/dL 70-110 : TE STED AT [facility] code = 1538) [id number] [facility] [address]: Health And Wellness Director/Techni yuly ID = [id number] for Naima Booker Lab Interpretation (test Normal code = 30820-7) [facility] [id number] 16:12:31 Test Item Value Reference Range Interpretation Comments POC-Glucose Meter (test 107 mg/dL 70-110 : TE STED AT [facility] code = 1538) [id number] [facility] [address]: Health And Wellness Director/Techni yuly ID = [id number] for Naima Booker Lab Interpretation (test Normal code = 61557-0) [facility]GLUCOSE [id number] 16:12:31 Test Item Value Reference Range Interpretation Comments POC-GLUCOSE METER 107 mg/dL 70-110 : TESTED A T [facility] [id number] (JEFF) (test code [facility], = 1538) [facility] 77 384: Health And Wellness Director/Techni yuly ID = [id number] for M Naima Degroot STD Panel - CT/GC [id number] 15:13:53 Test Item Value Reference Interpretation Comments Range C. trachomatis NOT DETECTED RNA, TMA (test code = 5493752) N. gonorrhoeae NOT DETECTED REFERENCE RA NGE: NOT RNA, TMA (test DETECTED Meth odology: code = 9247884) Transcriptio n Mediated Amplification ( TMA)to detect RNA. The analytical perf ormance characteristics of thisassay, when used to test SurePat h(TM) specimens haveb een determined by [employer]. Th e modificationsha ve not been cleared or approved by the FDA. This assayhas b een validated pursu ant to the CLIA regula tions andis used for clinical purpos es. For additional information, pl ease refer tohttps://educa tion.[facility]. [employer]/faq /DEC490(This li nk is being provided for informational/e ducatio nal purposes on ly.) VANESSA (test code = Performing Lab VANESSA) *QDID [facility] [address] [address] Daniel Cárdenas MD, PhD [facility] Panel - [facility]/GC [id number] 15:13:53 Test Item Value Reference Interpretation Comments Range C. trachomatis NOT DETECTED RNA, TMA (test code = 0437175) N. gonorrhoeae NOT DETECTED REFERENCE RA NGE: NOT RNA, TMA (test DETECTED Meth odology: code = 9389281) Transcriptio n Mediated Amplification ( TMA)to detect RNA. The analytical perf ormance characteristics of thisassay, when used to test SurePat h(TM) specimens haveb een determined by [employer]. Th e modificationsha ve not been cleared or approved by the FDA. This assayhas b een validated pursu ant to the CLIA regula tions andis used for clinical purpos es. For additional information, pl ease refer tohttps://educa tion.[facility]. [employer]/faq /KXZ309(This li nk is being provided for informational/e ducatio nal purposes on ly.) VANESSA (test code = Performing Lab VANSESA) *QDID [employer] [address] [address] Daniel Cárdenas MD, PhD [facility]SE [id number] 11:49:30 Test Item Value Reference Range Interpretation Comments POC-GLUCOSE METER 107 mg/dL 70-110 : [place] [address] (BEAKER) (test code [facility], = 1538) [place] [address] 384: Health And Wellness Director/Techni yuly ID = [id number] for Naima Guillen Genital culture + gram [id number] 11:44:17 Test Item Value Reference Range Interpretation Comments Result (test code = 6463-4) 1+ Skin gayle Gram Stain Result (test No organisms seen code = 1123) [facility] [id number] 11:44:17 Test Item Value Reference Range Interpretation Comments Result (test code = 6463-4) 1+ Skin gayle Gram Stain Result (test No organisms seen code = 1123) [facility] + GRAM [id number] 11:44:17 Test Item Value Reference Range Interpretation Comments CULTURE (BEAKER) (test 1+ Skin gayle code = 1095) GRAM STAIN RESULT 2+ White blood cells (BEAKER) (test code = seen 1123) GRAM STAIN RESULT No organisms seen (BEAKER) (test code = 07723) CBC with platelet count + automated [id number] 06:49:45 Test Item Value Reference Range Interpretation Comments WBC (test code = 6690-2) 6.1 See_Comment [A utomated message] The system BI[employer] generated this result transmitted ref erence range: 4.0 - 10 .0 K/L. The refe rence range was not u sed to interpret this result as normal/abnor mal. RBC (test code = 789-8) 3.25 See_Comment L [Au tomated message] The system [employer] generated this result transmitted ref erence range: 4.20 - 5 .80 M/L. The refe rence range was not u sed to interpret this result as normal/abnor mal. MCHC (test code = 786-4) 33.8 See_Comment L [A utomated message] The system [employer] generated this result transmitted ref erence range: [...] code = 215 See_Comment [Aut omated message] 407-3) The system [employer] generated this result transmitted ref erence range: 150 - 43 0 K/CU MM. The referen ce range was not u sed to interpret this result as normal/abnor mal. MPV (test code = 9.9 fL 6.0-11.5 12386-0) nRBC (test code = 413) 0 See_Comment [Aut omated message] The system [employer] generated this result transmitted ref erence range: [...] See_Comment [Aut omated message] 670) The system [employer] generated this result transmitted ref erence range: 1.80 - 8 .00 K/L. The refe rence range was not u sed to interpret this result as normal/abnor mal. # Lymphs (test code = 1.38 See_Comment L [Auto mated message] 414) The system [employer] generated this result transmitted ref erence range: 1.48 - 4 .50 K/L. The refe rence range was not u sed to interpret this result as normal/abnor mal. # Monos (test code = 0.66 See_Comment [Autom ated message] 415) The system [employer] generated this result transmitted ref erence range: 0.00 - 1 .30 K/L. The refe rence range was not u sed to interpret this result as normal/abnor mal. # Eos (test code = 416) 0.18 See_Comment [Au tomated message] The system [employer] generated this result transmitted ref erence range: 0.00 - 0 .50 K/L. The refe rence range was not u sed to interpret this result as normal/abnor mal. # Baso (test code = 417) 0.01 See_Comment [A utomated message] The system [employer] generated this result transmitted ref erence range: 0.00 - 0 .20 K/L. The refe rence range was not u sed to interpret this result as normal/abnor mal. Immature 0 % 0-0 Granulocytes-Relative (test code = 2801) Lab Interpretation (test Abnormal code = 99398-4) [facility] with platelet count + automated [id number] 06:49:45 Test Item Value Reference Range Interpretation Comments WBC (test code = 6690-2) 6.1 See_Comment [A utomated message] The system [employer] generated this result transmitted ref erence range: 4.0 - 10 .0 K/L. The refe rence range was not u sed to interpret this result as normal/abnor mal. RBC (test code = 789-8) 3.25 See_Comment L [Au tomated message] The system [employer] generated this result transmitted ref erence range: 4.20 - 5 .80 M/L. The refe rence range was not u sed to interpret this result as normal/abnor mal. MCHC (test code = 786-4) 33.8 See_Comment L [A utomated message] The system [employer] generated this result transmitted ref erence range: [...] See_Comment [Aut omated message] 777-3) The system [employer] generated this result transmitted ref erence range: 150 - 43 0 K/CU MM. The referen ce range was not u sed to interpret this result as normal/abnor mal. MPV (test code = 9.9 fL 6.0-11.5 86013-3) nRBC (test code = 413) 0 See_Comment [Aut omated message] The system [employer] generated this result transmitted ref erence range: [...] See_Comment [Aut omated message] 670) The system [employer] generated this result transmitted ref erence range: 1.80 - 8 .00 K/L. The refe rence range was not u sed to interpret this result as normal/abnor mal. # Lymphs (test code = 1.38 See_Comment L [Auto mated message] 414) The system [employer] generated this result transmitted ref erence range: 1.48 - 4 .50 K/L. The refe rence range was not u sed to interpret this result as normal/abnor mal. # Monos (test code = 0.66 See_Comment [Autom ated message] 415) The system [employer] generated this result transmitted ref erence range: 0.00 - 1 .30 K/L. The refe rence range was not u sed to interpret this result as normal/abnor mal. # Eos (test code = 416) 0.18 See_Comment [Au tomated message] The system [employer] generated this result transmitted ref erence range: 0.00 - 0 .50 K/L. The refe rence range was not u sed to interpret this result as normal/abnor mal. # Baso (test code = 417) 0.01 See_Comment [A utomated message] The system [employer] generated this result transmitted ref erence range: 0.00 - 0 .20 K/L. The refe rence range was not u sed to interpret this result as normal/abnor mal. Immature 0 % 0-0 Granulocytes-Relative (test code = 2801) Lab Interpretation (test Abnormal code = 72834-0) [facility] W/PLT COUNT & AUTO [id number] 06:49:45 Test Item Value Reference Range Interpretation [...] PERCENT (BEAKER) (test code = 2801) POCT-GLUCOSE [id number] 06:16:23 Test Item Value Reference Range Interpretation Comments POC-GLUCOSE METER 115 mg/dL 70-110 H : TESTED A T [facility] [address] (BEAKER) (test code [facility], = 1538) [facility] 77 384: Health And Wellness Director/Techni yuly ID = [id number] for Jyoti Caceres BASIC METABOLIC [id number] 05:01:58 Test Item Value Reference Range Interpretation [...] S NOT APPLICABLE FOR DIALYSIS PATIEN TS. Health And Wellness Director ID - [id number] 05:01:16 Test Item Value Reference Range Interpretation Comments Phosphorus (test code = 3.3 mg/dL 2.5-4.5 2777-1) VANESSA (test code = VANESSA) Health And Wellness Director ID - [id number] Lab Interpretation (test Normal code = 73704-9) [facility] 05:01:16 Test Item Value Reference Range Interpretation Comments Phosphorus (test code = 3.3 mg/dL 2.5-4.5 2777-1) VANESSA (test code = VANESSA) Health And Wellness Director ID - [id number] Lab Interpretation (test Normal code = 65413-8) [facility]2022-01-22 05:01:16 Test Item Value Reference Range Interpretation Comments PHOSPHORUS (BEAKER) (test code = 3.3 mg/dL 2.5-4.5 604) Health And Wellness Director ID - [id number] 05:01:15 Test Item Value Reference Range Interpretation Comments Magnesium (test code = 1.7 mg/dL 1.5-3.0 11166-3) VANESSA (test code = VANESSA) Health And Wellness Director ID - [id number] Lab Interpretation (test Normal code = 20616-2) [facility]15 Test Item Value Reference Range Interpretation Comments Magnesium (test code = 1.7 mg/dL 1.5-3.0 48892-4) VANESSA (test code = VANESSA) Health And Wellness Director ID - [id number] Lab Interpretation (test Normal code = 08159-6) [facility]15 Test Item Value Reference Range Interpretation Comments MAGNESIUM (BEAKER) (test code = 1.7 mg/dL 1.5-3.0 627) Health And Wellness Director ID - [id number] 01:58:09 Test Item Value Reference Range Interpretation Comments POC-GLUCOSE METER 98 mg/dL 70-110 : TESTED A T [facility] [address] (BEAKER) (test code = [facility] [address] [facility], 1538) [place] [address] 384: Health And Wellness Director/Techni yuly ID = [id number] for P Arley nowak POCT-GLUCOSE [id number] 15:57:07 Test Item Value Reference Range Interpretation Comments POC-GLUCOSE METER 76 mg/dL 70-110 : TESTED A T [facility] [address] (BEAKER) (test code = [facility] [address] [facility], 1538) [place] [address] 384: Health And Wellness Director/Techni yuly ID = [id number] for M Naima Degroot Sputum Culture + Gram [id number] 12:26:30 Test Item Value Reference Range Interpretation Comments Result (test code = 1+ Normal respiratory 6463-4) gayle present Gram Stain Result No organisms seen (test code = 1123) [facility] + Gram Yksfm6304-26-69 12:26:30 Test Item Value Reference Range Interpretation Comments Result (test code = 1+ Normal respiratory 6463-4) gayle present Gram Stain Result No organisms seen (test code = 1123) [facility]AM [id number] 12:26:30 Test Item Value Reference Range Interpretation Comments CULTURE (BEAKER) 1+ Normal respiratory (test code = 1095) gayle present GRAM STAIN RESULT <1+ White blood cells (BEAKER) (test code = seen 1123) GRAM STAIN RESULT 0-5 epithelial cells (BEAKER) (test code = 70451) GRAM STAIN RESULT No organisms seen (BEAKER) (test code = 16576) Urine qtzgrap1026-51-33 12:24:32 Test Item Value Reference Range Interpretation Comments Result (test code = 6463-4) No growth [facility] rvlakfe3688[facility]15-96 12:24:32 Test Item Value Reference Range Interpretation Comments Result (test code = 6463-4) No growth [facility] [id number] 11:48:35 Test Item Value Reference Range Interpretation Comments POC-GLUCOSE METER 87 mg/dL 70-110 : TESTED A T [facility] [address] (BEAKER) (test code = [facility], 1538) [place] [address] 384: Health And Wellness Director/Techni yuly ID = [id number] for Naima Guillen POCT-GLUCOSE [id number] 06:17:12 Test Item Value Reference Range Interpretation Comments POC-GLUCOSE METER 114 mg/dL 70-110 H : TESTED A T [facility] [address] (BEAKER) (test code [facility], = 1538) [place] [address] 384: Health And Wellness Director/Techni yuly ID = [id number] for Jyoti Caceres Comprehensive metabolic edalw2620-07-53 05:34:39 Test Item Value Reference Range Interpretation Comments Protein, Total (test 5.3 See_Comment L [Autom ated code = 2885-2) message] The system which generated this result transmit nicol reference range : 6.0 - 8.5 gm/dL . The reference range was not u sed to interpret th is result as normal/abnormal . Albumin (test code = 3.0 g/dL 3.5-5.0 L 23764-0) Alkaline Phosphatase 43 U/L 30-115 (test code = 6768-6) Total Bilirubin (test 0.5 mg/dL 0.1-1.3 code = 1975-2) Sodium (test code = 139 meq/L 703-412 1308-2) Potassium (test code 3.5 meq/L 3.5-5.5 = 2823-3) Chloride (test code = 108 meq/L 98-106 H 2074-0) CO2 (test code = 24 meq/L -2027-11) BUN (test code = 9 mg/dL 10-26 L 3094-0) Creatinine (test code 0.59 mg/dL 0.50-1.20 = 2160-0) Glucose (test code = 106 mg/dL 70-110 2345-7) Calcium (test code = 8.3 mg/dL 8.5-10.5 L 16035-0) AST (test code = 19 U/L 5-40 1920-8) ALT (test code = 16 U/L 6-50 1742-6) EGFR (test code = 140 mL/min/1.73 [place] [address]-5) NOT ACCURATE CREATININE CLEARANCE IN PREDICTING GLOMERULAR FILTRATION RATE . ESTIMATED GFR I S NOT APPLICABLE FOR DIALYSIS PATIEN TS. VANESSA (test code = VANESSA) Health And Wellness Director ID - [id number] Lab Interpretation Abnormal (test code = 05839-4) [facility] RosaComprehensive metabolic ctube6748-21-09 05:34:39 Test Item Value Reference Range Interpretation Comments Protein, Total (test 5.3 See_Comment L [Autom ated code = 2885-2) message] The system which generated this result transmit nicol reference range : 6.0 - 8.5 gm/dL . The reference range was not u sed to interpret th is result as normal/abnormal . Albumin (test code = 3.0 g/dL 3.5-5.0 L 31314-4) Alkaline Phosphatase 43 U/L 30-115 (test code = 6768-6) Total Bilirubin (test 0.5 mg/dL 0.1-1.3 code = 1975-2) Sodium (test code = 139 meq/L 156-713 1908-2) Potassium (test code 3.5 meq/L 3.5-5.5 = 2823-3) Chloride (test code = 108 meq/L 98-106 H 2075-0) CO2 (test code = 24 meq/L -2027-11) BUN (test code = 9 mg/dL 10-26 L 3094-0) Creatinine (test code 0.59 mg/dL 0.50-1.20 = 2160-0) Glucose (test code = 106 mg/dL 70-110 2345-7) Calcium (test code = 8.3 mg/dL 8.5-10.5 L 69323-7) AST (test code = 19 U/L 5-40 1920-8) ALT (test code = 16 U/L 6-50 1742-6) EGFR (test code = 140 mL/min/1.[place] [address]-8) NOT ACCURATE CREATININE CLEARANCE IN PREDICTING GLOMERULAR FILTRATION RATE . ESTIMATED GFR I S NOT APPLICABLE FOR DIALYSIS PATIEN TS. VANESSA (test code = VANESSA) Health And Wellness Director ID - [id number] Lab Interpretation Abnormal (test code = 06901-3) [facility] RosaCOMPREHENSIVE METABOLIC [id number] 05:34:39 Test Item Value Reference Range Interpretation [...] S NOT APPLICABLE FOR DIALYSIS PATIEN TS. Health And Wellness Director ID - [id number] 05:34:39 Test Item Value Reference Range Interpretation Comments PHOSPHORUS (BEAKER) (test code = 2.4 mg/dL 2.5-4.5 L 604) Health And Wellness Director ID - [id number] 05:34:38 Test Item Value Reference Range Interpretation Comments MAGNESIUM (BEAKER) (test code = 1.8 mg/dL 1.5-3.0 627) Health And Wellness Director ID - [id number] W/PLT COUNT & AUTO [id number] 05:01:08 Test Item Value Reference Range Interpretation [...] PERCENT (BEAKER) (test code = 2801) POCT-GLUCOSE [id number] 00:07:28 Test Item Value Reference Range Interpretation Comments POC-GLUCOSE METER 103 mg/dL 70-110 : TESTED A T [facility] [address] (BEAKER) (test code [facility], = 1538) [place] [address] 384: Health And Wellness Director/Techni yuly ID = [id number] for Jyoti Caceres POCT-GLUCOSE [id number] 17:25:47 Test Item Value Reference Range Interpretation Comments POC-GLUCOSE METER 107 mg/dL 70-110 : TESTED A T [facility] [address] (BEAKER) (test code [facility], = 1538) [place] [address] 384: Health And Wellness Director/Techni yuly ID = [id number] for B all, Marlen Tissue Qmog8950-37-44 12:51:59 Test Item Value Reference Range Interpretation Comments Case Report (test code Surgical Pathology = 104) Report Case: [id number] Authorizing Provider: Gerardo Patel MD Collected: 03/30/2021 03:53 PM Ordering Location: [facility] - Perioperative Received: 03/31/2021 07:24 AM Services Pathologist: Anderson Martinez MD Specimen: Small Bowel, NOS DIAGNOSIS (test code = d3iicVSvBPUtz7pjTZJuhRP 3220) uZzEwMzNcZnRuYmpcdWMxIH tccnRmMVxlcGljOTYwMVxhb jHjBRXypNBuZ0LtdkvmHEos NB3qKC8plXgugESkiJNsQBZ vDcGeg1xdf981gMRdm0tgLJ JKlumqySw8jNyoC05wx1V5H hhdG73ftSCwNNQ8RIFaYCPt kQDrIYBdXEZ0BFYytKOzT5c iQRRmLN2pzgmnSEuwVTfgGV LkwNX0RBTjzESkC9RfAGSgC OvpNIZqlvk9KkKrOv8udTAm eTcyMFxwYXJkXHBsYWluXGZ vKsVcC76RCNzjDI2IPDHLJS 6VSUIVXWRBCGJEVRHPU0BDS HjVJwoubKJpTJ2fO82LPLzl YR3CIZJVKR9PPRyXXMfaZYX VC6CCSDPHIWOYXeDiYaVFDa 9RYOBzM79AD4jPYDDMPTrvY EWiQPWjCNERKBLLEEiXP2iH FWxYWQ6FT7NMQ1mVOGIvvmI pVL1HSE8TKTlYEkJMG7kaYN EAEhZVKujORKriETG2w9ppj GYxXHNzdGUxODAwMFxhbnNp ORNqRnyhxcfhYRZkNXO0meT sNRRoJDniOHTgAJdcUg8pgR EenEerAaPvLUGom9uaefPXz jzvvIf5p5evHRFqKdQ5qWQv DWczW1ifenAysGLjVAWtXHc 0uL98YAChtH4itFLlEGmlnw SyFiY9QBxxIUPtRdS4FBIvq EMrLIQyM5vwDMEfLOziFECy VUbrxPDeZAC6yNljc7F9sYC zaGVldHtcZjBcZnMyMiBOb3 PwWOt2sWomT5CsUJCzHkV4v HQgUGFyYWdyYXBoIEZvbnQ7 aW17QSwslpS1cCWfi6Jqp60 mf523dF2whWBzOWI7NIVjBN YnhMUhTBYbGJC4TLCsrFAuZ 7unLKTdLQ5hdctzEOwoNAui WOOagWH1ZKMswABcG2PgQDS tDDnhCQYbsoy1YoXqYp9veY PpaAkrDUguq1zub8yslHAqI wv6VDVwFnGzOjrzWSqnd9Bs n9xePJKddx9mWSI9wDTweSv qm0F7fJGdUNHorUKsSJFiTO 9prYSdVIOlsH8yjlmlDJQvT yFsixqhYXCfoVxfnlCvEv3z kEfkHUU9OIflE6uuaH6kUeJ 6SUljL9lamB3dCZm1CMgaKG FigDY1ceJ6BBPcjKJtB1Byq G3uKOIqDJ5jppp9o3loHXR6 QSavFCGsVnG0uaE1TJIzqMI cWDQfqWmjJHslv352AEQ3Ty KrEZEey9OtF1UumEedC58yg YnmW18tIOTruYsyjN1kiHsz zO4oJkErHxWmRPhujAaaCW8 nYSMcE2iiwCNuPBXvGVIhL5 rrAxKkxU0tsOdtMFvcqkIuI HNyPgx3HEKjdAXjQYYkQcp7 UHDaTIHuQ81xozejBRZ9mH9 ek3jtz2UhWKhlMNM1TAIiv3 1xGXgjizC2HDqdWh8wAdYtJ YE0PIaaWUX2lO== CPT Code(s) (test code m7diyLTuRMTrqTC7OhDsRWY = 3357) sj0iks5QtlNXytVWiCOquoI NckvBjhl64cHW8wP79OZ4aP LPkJaD7MXUphoK5Owu0AIQf YRQqdAYnH310i5jyn7zihgQ tnLN3eJsfGAPxremxSsC6EZ itFUJbamvhOXl0CCjjJPGfl RR8ARLrkEOqR1NuHRFvSW5x wmn8ZPQ8ZAbvEBJwXaC2LVV ocVMqVODwtWeaHGjac017NV D2IfOxJNUkzqEwrIqdoV2jE aInODN9UUDhO5yjZCC1 CLINICAL HISTORY (test s3hirLQqZYMfzUX4PyKyPVE code = 3356) jg4mpp1QrvCLesATaOBksfW CfnwIpsz45iOU3sU25IW1nN VPuSeV3ISVenkB4Yrc7ENVm POItbMOvR773i3jbj7tfltR tpUJ6yYscDCRiarmgPyK9NP pwVHGqwwavJXm0EWztIOPpn TA9FPQgyLNrU9OcTFLvXT3s ain7DKA0BTtuBIIrNnY3BMH quFYrFQEyhYemQWixk160OT O4KzCjAXEhliVnwWtfzM0wX gTjLSHPxZKszJ9qh4widICj DbR8siNmnHzsha9wLTUmL2J naUTpUMS4yDdbntP6n9B2WB gwkYPre1JtiRqwvBOanG== SPECIMEN SOURCE (test f1smkQZcMCXokVM2DqGkTKM code = 3377) xt9mxs7TzlRZvhUImEFtckW GlwkXuvv88sPV3bR44BK0qJ JAcNyW8LZWaifV5Wem6WFCy UUQmwUJpB570d0odr3huskQ alSE1oRavJMMctywiAeW0DY fnOQIvvldnKYl5EOtrKJLaa FH3CRSszICaA9XdHUAyFD3n hyu6VJE6VKmgWAVsPaH2VSO huHRhRQQumZnrFTrfg468VO I6PwGvPOLaubNmhEjhpD8kS zHoMLASiXLsoSNpt6ajmLLC Q2VjwJWqhQ== GROSS DESCRIPTION o7qegEPiTZOniBC8UtHtAVS (test code = 3366) ws9zhh4MkcVSacXWnJQehzT RkcwCxqi81gMB9eZ94TQ1eH NBfWnK3DLNdzvV7Umk2NLKs ITQhlUAnJ067i6zxe6lpvlF cwKQ1jTchNQYttlhlSqB2EO cnXSQelgutYMb8NBadUQNrl AB8EULywQZlW4EjDDXjZO0a sjd3MKH9QTieKJGuQkH8ZOS srYDgFSKyzJarLKblh246KO K0JrEqHWIxzvUxsHgeqZ7zE bEcMCXEiUDmmI2mmNT2xNFm cOjtkWYbVOD9k9LwVJBel66 0YWluZXIsIGFuZCBjYXNzZX B4GKMhHApvRRHyOAOlYMJcA 1MyYi1dJKOjUGPcilhyFUTn QcGxFAu6YCInwE4gRb5pvLV gdC5csALrECoqGMI8hXHqMZ XmDGWpYJVsWI60H7YgkuDyX SAoTWNLZWUpIGFuZCBtZWRp S6ZxELMtW20tMOZwfN4zDQL dSPUumaguQKYsY5XkX4juPR 8sNSchJeKfGWk6KOCdcF4pH z3wcFGifC1lfQVyAVbhFRWa uyUgp37ivHiiNh29ZBomXIl pAAKwZIFhh3jnPxFss44no5 VnbWVudCBvZiBzbWFsbCBib 3dlbCBtZWFzdXJpbmcgNzkg B25enI4moMLzI9LgBYupqUx fECRtrfFqNRJzzDXnqQ2dSY OduwRyseNvOK4khI1sLCLny 71dLm84ZKYmIWAbJLRsVQVj VwMdmQ3kNMcfopExrBOqUNL zdGFwbGUgbGluZSBhdCBlYW FwNYOpOLDtRdD1jXTsa7NtF 4dkBB0sMD4iGI3mvMXanAB7 bM0gLLggYL0ibNXtLdUHzLY kRC3cqjJyaXWiVWZurpiyHz dbRIoct3IhxFqaPBSdSMXwD NzgOJFcc8xct2KbFTWdHLEi Dd3yEIVhZRVzf80he25bAV2 hpxhxsr8nYQhfVHEurh3jPZ beg8GgAnFoRTZdLLDgUDU9t 1o7LKDwe4liJWpuoNlnYDIf YRxkZozwgw35wzUlJLsgy7d yjtSzLB2nXAP9jrRkSK97ZL K8zUYspDLiaIVvco56XBHjC ANtWZBwnKJcz7YxWOW1mrRv X7CxIPJcCGRmQIUjTxJvc81 hGP6kOHoesA3jaqpjC0wcXx JLgvJbhCQctlK3NRQhHWRhW CZsj8KzzL8okJLtBCJjNIOj t1ZcTP6yWzSoipCcomKzVH6 oCTP4zPOoEWUdxgJsxcD6pR FhtpG6HTGkWKGoHAiht1ffI 6scnWZld8AeMHIvFi75YZoz Yy03JKEvMvHYlZGjq3AiwYH lEjF6uMChGw20VUezyL8lzB vcyrFbxdCiIX7wMGU0fbHdM XHtPZXgsF4bQThzVMkuhLoc p6BtpXbnYFWmr3AfYHpkVZ6 0aGVyIGFyZWFzIHJhbmdlcy Mcew9hDCVyMlP7krAqNvEbN 61pCYQtQ3Nhm56iqvkuuoR9 ZWFscyBubyBvdGhlciBtYXN kDTWqSQXbnefjCBUfI60iSB IuYnCrAWB4fG6zzyyuVOCrF EHog5rbzOFaECErVTVfrCU4 IQddjOPtY7lqnuslXNJlEGJ zIYHjLXP9yN7bxbIfmo9vUS NvyI0aUPMvOSZzBDwoVLOlY UE8PDCiUTD3cZ2vgcEehm5z NMAqUEC0uWVofjD4QWUcWTA jCHkbWUNjGZLgCCHgLM5xs1 8js5BqsQlxvrQjk9QhLo58W MsnRTmJW9O2QYdrKMG4 [facility] RosaTissue [id number] 12:51:59 Test Item Value Reference Range Interpretation Comments Case Report (test code Surgical Pathology = 104) Report Case: [id number] Authorizing Provider: Gerardo Patel MD Collected: 03/30/2021 03:53 PM Ordering Location: [facility] - Perioperative Received: 03/31/2021 07:24 AM Services Pathologist: Anderson Martinez MD Specimen: Small Bowel, NOS DIAGNOSIS (test code = f3eowXNnIDZid8blTJTnsTY 3220) uZzEwMzNcZnRuYmpcdWMxIH tccnRmMVxlcGljOTYwMVxhb cQhWVMvyQNcY1IkpgnnXRyg WV2xUG9acVsdgLXdeEYuADT tRuExi8wrx584nNIxm2ttUD IBfzwguGg5eEiiV00iw9Z1N dntT42lfIOsQHF4LWDlNQTm vCGeIGWdEZO6QWDeoCGhJ1y aYXJzFZ2ugscdNFtjEBytRA VxfSB5EVNtbHCjJ5KjWBCqV UbiJTVwugs2PsYgCv5jjUWh eTcyMFxwYXJkXHBsYWluXGZ fItMbI00YXOsoVY9KUOYITR 3AJVNASIUAPWCDMJHCE6EYY LnDCnbllBFgXP0aF13BIRvz IR2DLVXGJC2IPLsOEGloILV DU2PNEHQBJKAFOaGlIcWCIx 3JSAJeP91FZ5eRLLOWICydF AMkJACuMRTGMQUUMVyOJ5lF HYtPEI0HC0GAJ4yKHIBtjuI lWY0TQD6JROnSOoVDF7zjEV SUPcYRPcuZYTylCJI7x6fci GYxXHNzdGUxODAwMFxhbnNp TACxPiewvhttKNMlNIP8stP oXTVhCPmpEWImDDmsCm8nwB OemCurWaDvVZBql0yipmJNp qytkJn7u6ofWHUnUlT7pGZj OGxlG5yizeOetXQiYTVcFYg 9tK66ETBdnJ2viKYlDJgqjr OwMhQ1RPawMGVgFzE0IINyt OGxCBWdN4ayJGSbTUzwWLEm PTqsjTLgBJF3nRzwc1M5zPU zaGVldHtcZjBcZnMyMiBOb3 OrVKv6aLprI8WzZYAqHfO6t HQgUGFyYWdyYXBoIEZvbnQ7 sI72SEymzsU5oGNmj3Uxu82 lw663eR5sgOQtBAV1ASGcGW JnmLUbCTBiGCL3WVTczVLtK 4tjPHPyCV9vgqylIXiqUUye LFFrzXW5ZIKifEPuM5LxXZB fPYfeUTQdbai5BpYbMm0lgB BdoJqbFJcmo2yhc4rpsQFzV pg4SBYsOeEkEeqnVEfpj7Tb w5ybCTXpqh2gHBV9dBBidQs es1H2qWZgEGQxtUDfMNFeOU 4ndOPwOOLrfC3soqjdZXHbF wGpahhrVQKvaWqetrOhPy4w eYglTMZ8BLtrL5xvlV6dUaO 0XKuyU5bxsZ3aNMv2MMexFG GeeXF0jxU0TFYmyUSbT2Ism Q8vFVOiZV8rtbu0h0rjFQI7 XUtqRGYeXjU6ecI7DVOztSL qNDYvgJrkONctd600HOZ4Qa EmDWWcn0YwO6IsvTavX79lt ExxG61oKMMdcTevdE4myGbb fJ3xOcNcXxYiQJcvjSjuOA0 lDGYmG1ksnCNyKGAhNFZkA3 rnWoHpeO3ewLyfHQisrnVjR JDhHgo2AOEktBOrMNJiRlv2 LTHcPEVnO35osclnJLA3sQ3 ov0uld1FqSKdrJNC6UCIvc3 0ePGerdlI6HMlyXn3fPwFjI XF3ZQciZTM7pQ== CPT Code(s) (test code k6annWVpCVRhkLK0EbNcCHX = 3357) kr2cqk0EzkWNyzLOeAWnkpN NcasDsbp49bOX6mQ68YW0dN FLyLsO7ANWmodU7Pii6KGHl SXIgbISmP494k4xiw1lkjfI qaXX3cHwwURMvoktmFyS6EG ftXUBeohddYBa4CPrvLUFfa PY9FYFxaZYrN6QlZLRtOF6h klv6PHV5HWxwKLAlBkO9DHT vaNPlIMEpaVahWDjql967PC C3OwKpFJIpzoXodKuyjQ8yJ kMmZUT0IOUzZ6tkAMH2 CLINICAL HISTORY (test k4ugsXOtTQUjuNU2KsNaXOM code = 3356) ue6qwb2AngJKhoCHbOQwjlU ZdrlAtas89sUD9vY60CS2mO VXxMdJ8HGWscqI2Ttf3CABn YVOqkRYnK333j7jcl8wzoyP dkRE6oTnzRTRykjrnXcP3XP feSJFkiqyaGTe7OArnUYJvp YP4UTAaiEFeD2OpCIZzNX2w ryy7IOW5BYlxARSmUhA9LJE gvGKnLMKazPvzGYmlk426DU B5WlImQQZnjuAjzNgxeY9vS lYoFQAEpFOcfF4dw8fujJYr OvU4hlGrxUkjif0zHOPmI8L tlSHzIIX6lOmishD4d7Q5DZ mbyQAcu2HhvYbfiWDrjL== SPECIMEN SOURCE (test n9zrpXFwHQCffCI5IbQmSMB code = 3377) iz2sxn9NifVTsbZNyBJzzdY KudiOair11vTG0uV03II1lO GAlSxJ9LCDpmtL9Tso4LIIz AACtvBLoN459q1xco1aakbT coPS5jVdlYFHrojubCkE1FM qtXRFwwkuiTJk1LGaiFBBxh RM7VBUooICkJ4OlNQWrZY9o tdj4JGS5XZqyPHDiLvA5OEZ jlLHqRPCmtVgcQKaec777YQ A6MtImWDSfhcKomMqhyH2yS gGjHGUDbZKkjHLjc0itaKJB A7IkdPIqaJ== GROSS DESCRIPTION b0bxnUOyBCPigPI0CkKuAFQ (test code = 3366) in5hgw1ZmmFNwjUOsQYtigN OlpiGwjv06gED3bW28EX3oL IXiHfQ4WIKjmoH0Aya1YZLu ZLDfbYHjR381z0urf2zvzzF axMX8uAgoVKRysfuqSxP9RU bmSVXyagctEUy7LXyvCJClc WO8SERysZNaN4JsRTYsUS2j hmi6YZC3JFutILAbRzM5WIR xxPQxPKTqeVfnQAovw665RG E2HrOhYUJsijYppNqdyH8yT vFdPLGSyEYolF6mzZF3xEXf cJomsXErPJD2o1PvGVHad96 0YWluZXIsIGFuZCBjYXNzZX X4JRYlYKlgRXKqMXPnXXTzQ 9BhOj5iDSPpBWSjyyoyXHWm NzRbZBh8EJUqzN4yJc8fmRE csL7gkQPhRWicMUP8fXLbLK QrRIAnKALkSE77N7KxwkBzT SAoTWNLZWUpIGFuZCBtZWRp Z3ZfMYQgF84iWXZtnL7aOHP wIZVbglrjWPEdE4XlS6zlJT 5tBFdvBhLlHBu6QYNwwC5bP y0cdQMhqF5pbVYrSGtuODEb beOyk56ocUndDk48BMrzRQt xOQFoUUSci4dsSlEbf87tc6 VnbWVudCBvZiBzbWFsbCBib 3dlbCBtZWFzdXJpbmcgNzkg W56ukL1iqWGjJ5VzRZltmQb gELUcypAdQOLxxHRsiO1nFG MrhjSjcqZrVU5ljA8eBNHxx 41wXk51CRPuWTLkPZYfLHCb ZqIuhT1lRBmkqxDqaNMrDEV zdGFwbGUgbGluZSBhdCBlYW LpQIJtSHHhBpR5yJAsd3LnR 2fjJD8lQL8oVE3sfTMcgII5 pP3zJHhoBQ3ueETpEvGZdCH oDM5vecGdhCNpGWNsbopeHk lwDCzmk0MciFlkWMNzWNGdH ZyiEZUwp2mhg8IkJVUfVAUk Xj3xSJIeJFOpi15je14eCG9 fexaqmq6iOTuyQHCbwu1rXT oxg4JdBfYqURYgPIHvQQM9i 0z8FDAsy7xvJWeoyNunRBGe VLyrPyfbnm80okHaTPknj4e cgnFvYS7qKYR9vqRqNH38SN V1jBKwvTHliDCckx96SWAjM QNcDEXkdETbr7UzLRS8pwBy S1EdAFFoCRMxVFGnNgGlr56 iGU7pORmmoA4tfkidQ6jlOb YQtvAqxNHiuwF1GLTeWCFhN VBkx2UdkB3zzTAiHTStQNAo s8WjSH7fVdQavwGoleEcUT8 nNFJ3oRCjNDKetaSwbwZ5nQ HmvzT3MQBjGMWhZVsxa1nmB 7gnhBWnm6OxSDMlHt17YJll Hy66ZTJlMrBCeXQii6TotJF jCnQ2pRDrBm99IGasgH6geL cvjeXdmjWhTE2uMAM1xdLrM TFwYKRpsJ7yGOvjITlrvUpp e4HflWdkGONlr7AtOKgiYR4 0aGVyIGFyZWFzIHJhbmdlcy Wcwf0aWQDgFbO5upXoGzDzU 84sCPMxD1Yfm78kvldouoS7 ZWFscyBubyBvdGhlciBtYXN dGWRnLGFmfsghCGAqV01oIS RrSuDsXRO8hL8dveghJORxT XBvj3urxWGkNAUfYJAptEX5 MJhglGUeE8xuzfynVPGmNGW gDSHwISK6fD2leeMuds9yQE SgvF9qOZDmMMDsKZnjBRMzW SK0LDLbSWU4iA1larGewq1e OYHiPZQ2dGKcfgE9MNOdYVR hIIdaJCUtOOAqBOJxYO3zw2 5id2OfeJrbnlAxk4AnLy08P KvoFPgOS5U0LOedECE7 [facility] RosaTISSUE [id number] 12:51:59Surgical Pathology Report Case: [id number] Authorizing Provider: Gerardo Patel MD Collected: 03/30/2021 03:53 PM Ordering Location: [facility] - Perioperative Received: 03/31/2021 07:24 AM Services Pathologist: Anderson Martinez MD Specimen: Small Bowel, NOS SMALL INTESTINE, PARTIAL RESECTION:-SMALL INTESTINE WITH HEMORRHAGE AND NECROSIS CONSISTENT WITH ISCHEMIC NECROSIS- NO MALIGNANCY IDENTIFIED Signing Pathologist Direct Phone Line: [phone] signed by Anderson Martinez MD on 04/01/2021 at 12:51 [id number] obstruction. Procedure exploratory laparotomySmall bowel NOSThe instrument, paperwork, container, and cassettes all read as [id number].Received in formalin labeled with the patient's name [...] area; A6- A10, random sections of bowel. JF/ewPOCT-GLUCOSE [id number] 11:37:07 Test Item Value Reference Range Interpretation Comments POC-GLUCOSE METER 92 mg/dL 70-110 : TESTED A T [facility] [address] (BEAKER) (test code = [facility] [address], 1538) [place] [address] 384: Health And Wellness Director/Techni yuly ID = [id number] for B all, Marlen COMPREHENSIVE METABOLIC [id number] 04:36:14 Test Item Value Reference Range Interpretation [...] S NOT APPLICABLE FOR DIALYSIS PATIEN TS. Health And Wellness Director ID - [id number] 04:35:21 Test Item Value Reference Range Interpretation Comments Triglycerides (test 109 mg/dL code = 2571-8) VANESSA (test code = VANESSA) TRIGLYCERIDE REFERENCE RANGELow Risk <150Borderline Risk 150-199High Risk 200-499Very High Risk >=500Operator ID - [id number] [facility] RosaXwadumZsrqyixmoizyo6742-79-08 04:35:21 Test Item Value Reference Range Interpretation Comments Triglycerides (test 109 mg/dL code = 2571-8) VANESSA (test code = VANESSA) TRIGLYCERIDE REFERENCE RANGELow Risk <150Borderline Risk 150-199High Risk 200-499Very High Risk >=500Operator ID - [id number] [facility]JtwzcqJEHVROTQXIFPC3348-91-06 04:35:21 Test Item Value Reference Range Interpretation Comments TRIGLYCERIDES (BEAKER) (test code = 109 mg/dL 540) TRIGLYCERIDE REFERENCE RANGELow Risk <150Borderline Risk 150-199High Risk 200-499Very High Risk >=500Operator ID - [id number] 04:35:20 Test Item Value Reference Range Interpretation Comments MAGNESIUM (BEAKER) (test code = 2.0 mg/dL 1.5-3.0 627) Health And Wellness Director ID - [id number] 04:35:20 Test Item Value Reference Range Interpretation Comments PHOSPHORUS (BEAKER) (test code = 1.8 mg/dL 2.5-4.5 L 604) Health And Wellness Director ID - [id number] 04:03:58 Test Item Value Reference Range Interpretation Comments POC-GLUCOSE METER 101 mg/dL 70-110 : TESTED A T [facility] [address] (BEAKER) (test code [facility] [address] THE, = 1538) [facility] [address] 384: Health And Wellness Director/Techni yuly ID = [id number] for Johnny Lawrence cunningham CBC W/PLT COUNT & AUTO [id number] 04:01:29 Test Item Value Reference Range Interpretation [...] PERCENT (BEAKER) (test code = 2801) POCT-GLUCOSE [id number] 00:46:23 Test Item Value Reference Range Interpretation Comments POC-GLUCOSE METER 107 mg/dL 70-110 : TESTED A T [facility] [address] (BEAKER) (test code [facility], = 1538) [place] [address] 384: Health And Wellness Director/Techni yuly ID = [id number] for N aqu[place], [place] POCT-GLUCOSE [id number] 23:03:02 Test Item Value Reference Range Interpretation Comments POC-GLUCOSE METER 70 mg/dL 70-110 : TESTED A T [facility] [address] (BEAKER) (test code = [facility], 1538) [place] [address] 384: Health And Wellness Director/Techni yuly ID = [id number] for N [place], [place] POCT-GLUCOSE [id number] 18:06:02 Test Item Value Reference Range Interpretation Comments POC-GLUCOSE METER 73 mg/dL 70-110 : TESTED A T [facility] [address] (BEAKER) (test code = [facility] [address], 1538) [place] [address] 384: Health And Wellness Director/Techni yuly ID = [id number] for Shanon Chavez POCT-GLUCOSE [id number] 12:08:17 Test Item Value Reference Range Interpretation Comments POC-GLUCOSE METER 76 mg/dL 70-110 : TESTED A T [facility] [address] (BEAKER) (test code = [facility] [address], 1538) [place] [address] 384: Health And Wellness Director/Techni yuly ID = [id number] for Shanon Chavez POCT-GLUCOSE [id number] 07:39:49 Test Item Value Reference Range Interpretation Comments POC-GLUCOSE METER 95 mg/dL 70-110 : TESTED A T [facility] [address] (BEAKER) (test code = [facility], 153) [place] [address] 384: Health And Wellness Director/Techni yuly ID = [id number] for Shanon Chavez COMPREHENSIVE METABOLIC [id number] 04:09:29 Test Item Value Reference Range Interpretation [...] S NOT APPLICABLE FOR DIALYSIS PATIEN TS. Health And Wellness Director ID - [id number] 04:08:24 Test Item Value Reference Range Interpretation Comments MAGNESIUM (BEAKER) (test code = 1.9 mg/dL 1.5-3.0 627) Health And Wellness Director ID - [id number] acid, [id number] 03:29:52 Test Item Value Reference Range Interpretation Comments Lactate, Venous (test 1.11 mmol/L 0.50-2.20 Specim en code = 2872) slightly hemolyzed VANESSA (test code = VANESSA) Health And Wellness Director ID - [id number] Lab Interpretation Normal (test code = 04683-5) [facility] RosaLactic acid, [id number] 03:29:52 Test Item Value Reference Range Interpretation Comments Lactate, Venous (test 1.11 mmol/L 0.50-2.20 Specim en code = 2872) slightly hemolyzed VANESSA (test code = VANESSA) Health And Wellness Director ID - [id number] Lab Interpretation Normal (test code = 70661-4) [facility] RosaLACTIC ACID, [id number] 03:29:52 Test Item Value Reference Range Interpretation Comments LACTATE BLOOD VENOUS 1.11 mmol/L 0.50-2.20 Specime n slightly (2) (BEAKER) (test hemolyzed code = 2872) Health And Wellness Director ID - [id number] W/PLT COUNT & AUTO [id number] 03:29:39 Test Item Value Reference Range Interpretation [...] PERCENT (BEAKER) (test code = 2801) Calcium, Zafasut0779-29-12 03:12:02 Test Item Value Reference Range Interpretation Comments Calcium, Ion (test code = 1993-) 1.02 mmol/L 1.12-1.27 L pH, Blood (test code = 63411-1) 7.40 Lab Interpretation (test code = Abnormal 07436-6) [facility] RosaCalcium, Rohheki2044-95-19 03:12:02 Test Item Value Reference Range Interpretation Comments Calcium, Ion (test code = 1993-) 1.02 mmol/L 1.12-1.27 L pH, Blood (test code = 80737-0) 7.40 Lab Interpretation (test code = Abnormal 65031-8) [facility] RosaCALCIUM, [id number] 03:12:02 Test Item Value Reference Range Interpretation Comments CALCIUM IONIZED (BEAKER) (test 1.02 mmol/L 1.12-1.27 L code = 698) PH, BLOOD (BEAKER) (test code = 7.40 1810) Blood gas, awjmaqew1998-16-39 03:09:43 Test Item Value Reference Range Interpretation [...] 35 Lab Interpretation Abnormal (test code = 52609-7) [facility] RosaBlood gas, btwoxyxj3619-65-33 03:09:43 Test Item Value Reference Range Interpretation Comments pH, Arterial (test code 7.36 7.35-7.45 = 2744-1) pCO2, Arterial (test 41 See_Comment [Autom ated code = 2019-) message] The system which generated this result [...] 35 Lab Interpretation Abnormal (test code = 60514-4) [facility] RosaBLOOD GAS, [id number] 03:09:43 Test Item Value Reference Range Interpretation [...] 1819) 35.0 Urinalysis w/Microscopic + Reflex to Ivlnsfx8061-03-93 02:22:14 Test Item Value Reference Range Interpretation Comments Color, UA (test code Yellow = 5778-6) Clarity, UA (test Clear code = 5767-9) Specific [place], UA 1.025 1.001-1.035 (test code = 5811-5) pH, UA (test code = 5.0 5.0-8.0 5803-2) Protein, UA (test Negative Negative code = 03716-4) Glucose, UA (test Negative Negative code = 365) Ketones, UA (test Negative Negative code = 2514-8) Bilirubin, UA (test Negative Negative code = 51268-3) Blood, UA (test code Small Negative A = 35176-5) Nitrite, UA (test Negative Negative code = 5802-4) Leukocytes, UA (test Small Negative A code = 5799-2) Urobilinogen, UA <1.0 0.2-1.0 (test code = 68334-1) RBC, UA (test code = 3 See_Comment [Autom ated 65276-6) message] The system which generated this result [...] 8247-9) Specimen Source (test code = 2795) VNAESSA (test code = VANESSA) Health And Wellness Director ID - [auto]Health And Wellness Director ID - tech Lab Interpretation Abnormal (test code = 31409-1) [facility] RosaUrinalysis w/Microscopic + Reflex to Culture 2021-03-31 02:22:14 Test Item Value Reference Range Interpretation Comments Color, UA (test code Yellow = 5778-6) Clarity, UA (test Clear code = 5767-9) Specific [place], UA 1.025 1.001-1.035 (test code = 5811-5) pH, UA (test code = 5.0 5.0-8.0 5803-2) Protein, UA (test Negative Negative code = 53826-4) Glucose, UA (test Negative Negative code = 365) Ketones, UA (test Negative Negative code = 2514-8) Bilirubin, UA (test Negative Negative code = 20797-3) Blood, UA (test code Small Negative A = 44828-5) Nitrite, UA (test Negative Negative code = 5802-4) Leukocytes, UA (test Small Negative A code = 5799-2) Urobilinogen, UA <1.0 0.2-1.0 (test code = 34592-7) RBC, UA (test code = 3 See_Comment [Autom ated 13949-6) message] The system which generated this result [...] = 2795) VANESSA (test code = VANESSA) Health And Wellness Director ID - [auto]Health And Wellness Director ID - tech Lab Interpretation Abnormal (test code = 67247-6) [facility] RosaURINALYSIS W/ REFLEX URINE [id number] 02:22:14 Test Item Value Reference Range Interpretation [...] = 1574) Rare SOURCE(BEAKER) (test code = 2795) Health And Wellness Director ID - [auto]Health And Wellness Director ID - techPOCT-GLUCOSE MPLYV8966-01-25 00:17:42 Test Item Value Reference Range Interpretation Comments POC-GLUCOSE METER 97 mg/dL 70-110 : TESTED A T [facility] [address] (BEAKER) (test code = [facility] [address], 1538) [facility] 77 384: Health And Wellness Director/Techni yuly ID = [id number] for Aye Paul BLOOD GAS, [id number] 20:36:32 Test Item Value Reference Range Interpretation [...] (BEAKER) (test code = 1819) 50.0 Manual Knurteecauwk5507-76-75 19:09:04 Test Item Value Reference Range Interpretation [...] utomated message] code = 1365) The system BI[employer] generated this result transmitted ref erence range: 1.80 - 8 .00 K/L. The refe rence range was not u sed to interpret this result as normal/abnor mal. # Lymphs (manual) (test 1.72 See_Comment [Au tomated message] code = 1366) The system [employer] generated this result transmitted ref erence range: 1.48 - 4 .50 K/L. The refe rence range was not u sed to interpret this result as normal/abnor mal. # Monos (manual) (test 0.86 See_Comment [Aut omated message] code = 1367) The system [employer] generated this result transmitted ref erence range: 0.00 - 1 .30 K/L. The refe rence range was not u sed to interpret this result as normal/abnor mal. # Bands (manual) (test 0.7 See_Comment [Aut omated message] code = 1349) The system [employer] generated this result transmitted ref erence range: 0.0 - 0. 8 K/L. The refe rence range was not u sed to interpret this result as normal/abnor mal. # Atypical Lymphs (test 0.12 See_Comment H [Au tomated message] code = 263) The system [employer] generated this result transmitted ref erence range: [...] 762) Lab Interpretation (test Abnormal code = 90453-6) [facility] RosaManual Vouykdfqwsmw4603-96-80 19:09:04 Test Item Value Reference Range Interpretation [...] utomated message] code = 1365) The system [employer] generated this result transmitted ref erence range: 1.80 - 8 .00 K/L. The refe rence range was not u sed to interpret this result as normal/abnor mal. # Lymphs (manual) (test 1.72 See_Comment [Au tomated message] code = 1366) The system [employer] generated this result transmitted ref erence range: 1.48 - 4 .50 K/L. The refe rence range was not u sed to interpret this result as normal/abnor mal. # Monos (manual) (test 0.86 See_Comment [Aut omated message] code = 1367) The system [employer] generated this result transmitted ref erence range: 0.00 - 1 .30 K/L. The refe rence range was not u sed to interpret this result as normal/abnor mal. # Bands (manual) (test 0.7 See_Comment [Aut omated message] code = 1349) The system [employer] generated this result transmitted ref erence range: 0.0 - 0. 8 K/L. The refe rence range was not u sed to interpret this result as normal/abnor mal. # Atypical Lymphs (test 0.12 See_Comment H [Au tomated message] code = 263) The system [employer] generated this result transmitted ref erence range: [...] 762) Lab Interpretation (test Abnormal code = 51055-8) [facility] W/PLT COUNT & AUTO [id number] 19:09:04 Test Item Value Reference Range Interpretation [...] (test code Normal = 762) COMPREHENSIVE METABOLIC [id number] 19:06:14 Test Item Value Reference Range Interpretation [...] S NOT APPLICABLE FOR DIALYSIS PATIEN TS. Health And Wellness Director ID - [id number] 19:03:50 Test Item Value Reference Range Interpretation Comments PHOSPHORUS (BEAKER) (test code = 5.1 mg/dL 2.5-4.5 H 604) Health And Wellness Director ID - [id number] 19:03:49 Test Item Value Reference Range Interpretation Comments MAGNESIUM (BEAKER) (test code = 2.0 mg/dL 1.5-3.0 627) Health And Wellness Director ID - [id number] time/[id number] 18:54:47 Test Item Value Reference Interpretation Comments [...] valves. Lab Interpretation Abnormal (test code = 44948-1) [facility] RosaProthrombin time/[id number] 18:54:47 Test Item Value Reference Interpretation Comments [...] valves. Lab Interpretation Abnormal (test code = 38261-4) [facility] RosaPROTHROMBIN TIME/[id number] 18:54:47 Test Item Value Reference Range Interpretation Comments PROTIME (BEAKER) (test code = 17.0 seconds 11.8-14.4 H 759) INR (BEAKER) (test code = 370) 1.46 1.20-1.50 RECOMMENDED COUMADIN/WARFARIN INR THERAPY RANGESSTANDARD DOSE: 2.0 - 3.0 Includes: PROPHYLAXIS for venous thrombosis, systemic embolization; TREATMENT for venous thrombosis and/or pulmonary embolus.HIGH RISK: Target INR is 2.5-3.5 for patients with mechanical heart valves.BLOOD GAS, [id number] 18:51:56 Test Item Value Reference Range Interpretation [...] 1819) 100.0 RAD, CHEST, 1 VIEW, NON [id number] 17:40:00Reason for exam:->Central line placementShould this be performed at the bedside?->Yes [facility] 1960 Sex: MFINAL REPORT RAD, CHEST, 1 VIEW, NON DEPT TECHNIQUE: Frontal view(s) of the chest. INDICATION: Central line placement COMPARISON: 05/30/2020 chest radiograph FINDINGS/IMPRESSION: Lines/Tubes: Right transjugular catheter tip at the superior cavoatrial junction. Endotracheal tube tip approximately 5.5 cm above the marine. Nasogastric tube courses below the diaphragm and terminates outside the gmiim-dx-fuao Lungs/pleura: Slight retrocardiac density, possibly atelectatic. Lungs are otherwise clear. No pleural effusion. No pneumothorax. Heart and Mediastinum: Mediastinal surgical clips and otherwise unremarkable for technique. Soft Tissues and Bones: Sternotomy wires. Signed: Douglas Muller Verified Date/Time: 03/30/2021 17:40:19 Reading Location: [facility] Diagnostic Imaging Reading Room - [facility] 1.310.12 POCT-GLUCOSE [id number] 17:11:48 Test Item Value Reference Range Interpretation Comments POC-GLUCOSE METER 147 mg/dL 70-110 H : TESTED A T [facility] [address] (BEAKER) (test code [facility] [address] THE, = 1538) [place] [address] 384: Health And Wellness Director/Techni yuly ID = [id number] for Shannan Gonsalves Type and screen, [id number] 15:25:00 Test Item Value Reference Range Interpretation Comments ABO/RH AUTOMATED (BEAKER) (test AB POSITIVE code = 2260) Ab Scrn (test code = 890-4) NEGATIVE [facility] RosaType and screen, [id number] 15:25:00 Test Item Value Reference Range Interpretation Comments ABO/RH AUTOMATED (BEAKER) (test AB POSITIVE code = 2260) Ab Scrn (test code = 890-4) NEGATIVE [facility] RosaRAD, ABDOMEN/KUB, 1 VIEW [id number] 12:36:00Reason for exam:->ng placement [facility] JAYLENE : 1960 Sex: MFINAL REPORT RAD, ABDOMEN/KUB, [...] Muller Verified Date/Time: 03/30/2021 12:36:50 Reading Location: [facility] Diagnostic Imaging Reading Room - [facility] 1.310.12 -GLUCOSE [id number] 12:20:38 Test Item Value Reference Range Interpretation Comments POC-GLUCOSE METER 195 mg/dL 70-110 H : TESTED A T [facility] [address] (BEAKER) (test code [facility] [address], = 1538) [place] [address] 384: Health And Wellness Director/Techni yuly ID = [id number] for Sherie Franklin "Nilda" SARS-CoV2/RT-PCR (Asymptomatic ONLY)2021-03-30 05:10:14 Test Item Value Reference Interpretation Comments Range SARS-COV2/RT-PCR Negative Negative The SARS-Co V-2 (test code = target nucleic 63798-6) acids are not detected in thi s [...] revoked sooner. Fact Sheet for Healthcare Providers: https://www.[employer]/Documents/Xp ert%20Xpress%20SAR S%20CoV-2/Fact%20S heets/302-3802%20S ARS-COV-2%20HEALTH CARE%20PROVIDERS%2 0FACT%20SHEET.pdf Fact Sheet for Healthcare Patients: https://www.[employer]/Documents/Xp ert%20Xpress%20SAR S%20CoV-2/Fact%20S heets/302-3801%20S ARS-COV-2%20PATIEN T%20FACT%20SHEET.p df Lab Interpretation Normal (test code = 21505-0) [facility] (Asymptomatic ONLY)2021-03-30 05:10:14 Test Item Value Reference Interpretation Comments Range SARS-COV2/RT-PCR Negative Negative The SARS-Co V-2 (test code = target nucleic 95794-6) acids are not detected in thi s [...] revoked sooner. Fact Sheet for Healthcare Providers: https://www.[employer]/Documents/Xp ert%20Xpress%20SAR S%20CoV-2/Fact%20S heets/302-3802%20S ARS-COV-2%20HEALTH CARE%20PROVIDERS%2 0FACT%20SHEET.pdf Fact Sheet for Healthcare Patients: https://www.[employer]/Documents/Xp ert%20Xpress%20SAR S%20CoV-2/Fact%20S heets/302-3801%20S ARS-COV-2%20PATIEN T%20FACT%20SHEET.p df Lab Interpretation Normal (test code = 86898-1) [facility]estoARS-[facility]OV[facility] ([facility])2021-03-30 05:10:14 Test Item Value Reference Range Interpretation Comments SARS-COV2/RT-PCR Negative Negative The SARS-Co V-2 target (test code = nucleic acids a re not 3367960) detected in thi s specimen. Negative result [...] revoked sooner. Fact Sheet for Healthcare Providers: https://www.[employer]/Documents/Xpert%20Xpress%20SARS%20CoV-2/Fact%20Sheets/302-3802%90DALD-RHP-9%20 HEALTHCARE%20PROVIDERS%20FACT%20SHEET.pdf Fact Sheet for Healthcare Patients: https://www.[employer]/Documents/Xpert%20Xp ress%20SARS%20CoV-2/Fact%20Sheets/302-3801%83BCHE-LMN-4%20PATIENT%20FACT%20SHEET .pdfCT, [id number] 02:58:00Unlisted Reason for Exam - Click Yes and Enter Reason Below->NoIs this for enterography?->NoWill this procedure require oral contrast?->No [facility] 1960 Sex: MFINAL [...] hernia. Nonobstructing left nephrolithiasis. Signed: Ashu Bear MDReport VerifiedDate/Time: 03/30/2021 02:58:27 COMPREHENSIVE METABOLIC [id number] 00:33:52 Test Item Value Reference Range Interpretation [...] S NOT APPLICABLE FOR DIALYSIS PATIEN TS. Health And Wellness Director ID - [id number] W/ REFLEX URINE [id number] 00:27:45 Test Item Value Reference Range Interpretation [...] /LPF 514) SOURCE(BEAKER) (test code = 2795) Health And Wellness Director ID - [auto]Health And Wellness Director ID - techTropokal [id number] 22:56:52 Test Item Value Reference Range Interpretation Comments Troponin I (test code = <0.01 0.00-0.15 17145-6) VANESSA (test code = VANESSA) Troponin I [...] failure, acidosis, acute neurological disease, and persistent tachyarrhythmia.[facility] tor ID - [id number] Lab Interpretation (test Normal code = 01350-5) [facility] [id number] 22:56:52 Test Item Value Reference Range Interpretation Comments Troponin I (test code = <0.01 0.00-0.15 35293-4) VANESSA (test code = VANESSA) Troponin I [...] failure, acidosis, acute neurological disease, and persistent tachyarrhythmia.Oper tor ID - [id number] Lab Interpretation (test Normal code = 92767-1) [facility] [id number] 22:56:52 Test Item Value Reference Range Interpretation [...] failure, acidosis, acute neurological disease, and persistent tachyarrhythmia.Health And Wellness Director ID - [id number] 22:51:12 Test Item Value Reference Range Interpretation Comments Lipase (test code = 38 U/L 8 3040-3) VANESSA (test code = VANESSA) Health And Wellness Director ID - [id number] Lab Interpretation (test Normal code = 02985-7) [facility] RosaLipase2022-01-17 22:51:12 Test Item Value Reference Range Interpretation Comments Lipase (test code = 38 U/L 878 3040-3) VANESSA (test code = VANESSA) Health And Wellness Director ID - [id number] Lab Interpretation (test Normal code = 34991-1) [facility] RosaLIPASE2022-01-17 22:51:12 Test Item Value Reference Range Interpretation Comments LIPASE (BEAKER) (test code = 749) 38 U/L 878 Health And Wellness Director ID - [id number] W/PLT COUNT & AUTO [id number] 22:32:37 Test Item Value Reference Range Interpretation [...] (BEAKER) (test code = 2801) BASIC METABOLIC [id number] 06:30:00 Test Item Value Reference Range Interpretation [...] S NOT APPLICABLE FOR DIALYSIS PATIEN TS. Health And Wellness Director ID - [id number] MCBC (HEMOGRAM ONLY)2020-06-02 05:36:00 [...] = 413) RAD, CHEST, 1 VIEW, NON [id number] 15:50:00Reason for exam:->evaluate ptxShould this be performed at the bedside?->Yes [facility] 1960 Sex: MFINAL REPORT CLINICAL HISTORY: evaluate ptx TECHNIQUE: 1 view of the chest. COMPARISON: 05/31/2020 IMPRESSION: The previous trace left pneumothorax has essentially resolved. Left lung base pleural parenchymal opacity has also decreased. The right lung remains relatively well-aerated. Cardiomegaly is again seen poststernotomy. Signed: Cassius Rodríguezeport Verified Date/Time: 06/01/2020 15:50:56 Reading Location: [facility] Radiology Reading Room BASIC METABOLIC [id number] 06:29:00 Test Item Value Reference Range Interpretation Comments SODIUM (BEAKER) 134 meq/L 136-145 L (test code = 381) POTASSIUM (BEAKER) 3.3 meq/L 3.5-5.1 L (test code = 379) CHLORIDE (BEAKER) 97 meq/L 98-107 L (test code = 382) CO2 (BEAKER) (test 24 meq/L 22-29 code = 355) BLOOD UREA NITROGEN 13 [...] S NOT APPLICABLE FOR DIALYSIS PATIEN TS. Health And Wellness Director ID - [id number] 06:29:00 Test Item Value Reference Range Interpretation Comments MAGNESIUM (BEAKER) (test code = 1.8 mg/dL 1.6-2.6 627) Health And Wellness Director ID - [id number] 06:29:00 Test Item Value Reference Range Interpretation Comments PHOSPHORUS (BEAKER) (test code = 3.6 mg/dL 2.3-4.7 604) Health And Wellness Director ID - [id number] (HEMOGRAM ONLY)2020-06-01 05:59:00 Test [...] = 413) RAD, CHEST, 1 VIEW, NON [id number] 09:00:00Reason for exam:->s/p acbShould this be performed at the bedside?->Yes [facility] 1960 Sex: MFINAL [...] unchanged. Sternotomy wires are present. Signed: Evette oPp MDReport Verified Date/Time: 05/31/2020 09:00:55 Reading Location: [address] Ortho Consult Reading Room BASIC METABOLIC [id number] 07:26:00 Test Item Value Reference Range Interpretation [...] S NOT APPLICABLE FOR DIALYSIS PATIEN TS. Health And Wellness Director ID - [id number] 07:26:00 Test Item Value Reference Range Interpretation Comments MAGNESIUM (BEAKER) (test code = 2.0 mg/dL 1.6-2.6 627) Health And Wellness Director ID - [id number] 07:26:00 Test Item Value Reference Range Interpretation Comments PHOSPHORUS (BEAKER) (test code = 2.5 mg/dL 2.3-4.7 604) Health And Wellness Director ID - DBCALCIUM, [id number] 07:11:00 Test Item Value Reference Range Interpretation [...] = 413) RAD, CHEST, 1 VIEW, NON [id number] 09:21:00Reason for exam:->post opShould this be performed at the bedside?->Yes [facility] : 1960 Sex: MFINAL REPORT RAD, CHEST, 1 VIEW, NON DEPT INDICATION: post op COMPARISON: Prior day's exam FINDINGS: Portable frontal view of the chest. IMPRESSION: Support Lines: Sternotomy wires Lungs and pleura: Mild basilar atelectasis. Left pleural catheter. No pneumothorax.Heart and mediastinum:Stable contours.Additional findings: None. Signed: Janey Arthur MDReport Verified Date/Time: 05/30/2020 09:21:38 Reading Location: [address] Neuro Reading Room [id number] 06:07:00 Test Item Value Reference Range Interpretation Comments MAGNESIUM (BEAKER) 2.0 mg/dL 1.6-2.6 Specimen slightly (test code = 627) hemolyzed Health And Wellness Director ID - RESHMA [id number] 06:07:00 Test Item Value Reference Range Interpretation Comments PHOSPHORUS (BEAKER) 2.6 mg/dL 2.3-4.7 Specimen slightly (test code = 604) hemolyzed Health And Wellness Director ID - RESHMA MBASIC METABOLIC [id number] 06:07:00 Test Item Value Reference Range Interpretation [...] S NOT APPLICABLE FOR DIALYSIS PATIEN TS. Health And Wellness Director ID - RESHMA MCALCIUM, [id number] 05:18:00 Test Item Value Reference Range Interpretation [...] 0-0 (BEAKER) (test code = 413) POCT-GLUCOSE [id number] 08:17:00 Test Item Value Reference Range Interpretation Comments POC-GLUCOSE METER 107 mg/dL 70-110 : TESTED A T B[facility] 6720 (BEAKER) (test code = [place], 1538) [address]: Health And Wellness Director/Techni yuly ID = [id number] for Josette Azevedo BASIC METABOLIC [id number] 05:57:00 Test Item Value Reference Range Interpretation [...] S NOT APPLICABLE FOR DIALYSIS PATIEN TS. Health And Wellness Director ID - [id number] 05:55:00 Test Item Value Reference Range Interpretation Comments MAGNESIUM (BEAKER) (test code = 1.9 mg/dL 1.6-2.6 627) Health And Wellness Director ID - [id number] 05:55:00 Test Item Value Reference Range Interpretation Comments PHOSPHORUS (BEAKER) (test code = 4.1 mg/dL 2.3-4.7 604) Health And Wellness Director ID - DBCBC W/PLT COUNT & AUTO [id number] 05:13:00 Test Item Value Reference Range Interpretation [...] (BEAKER) (test code = 2801) LACTIC ACID, [id number] 05:11:00 Test Item Value Reference Range Interpretation Comments LACTATE BLOOD 1.3 mmol/L 0.5-2.2 Specimen sligh tly ARTERIAL (2) (BEAKER) hemoly zed (test code = 2874) Health And Wellness Director ID - PIAYA [id number] 05:10:00 Test Item Value Reference Range Interpretation Comments PARTIAL THROMBOPLASTIN TIME 39.2 seconds 22.5-36.0 H (BEAKER) (test code = 760) PROTHROMBIN TIME/[id number] 05:09:00 Test Item Value Reference Range Interpretation Comments PROTIME (BEAKER) 17.3 seconds 11.9-14.2 H (test code = 759) INR (BEAKER) (test 1.47 See_Comment [Automat ed message] code = 370) The system BIOSAFE generated this result transmitted ref erence range: <=5.90. The reference range was not used to int erpret this result as normal/abnormal . Effective 08/08/2018: PT Reference Range ChangeNew: 11.9-14.2 Previous: 11.7- 14.7RECOMMENDED COUMADIN/WARFARIN INR THERAPY RANGESSTANDARD DOSE: 2.0-3.0 Includes: PROPHYLAXIS for venous thrombosis, systemic embolization; TREATMENT for venous thrombosis and/or pulmonary embolus.HIGH RISK: Target INR is 2.5-3.5 for patients wiht mechanical heart valves.CALCIUM, [id number] 04:42:00 Test Item Value Reference Range Interpretation Comments CALCIUM IONIZED (BEAKER) (test 1.06 mmol/L 1.12-1.27 L code = 698) PH, BLOOD (BEAKER) (test code = 7.40 1810) RAD, CHEST, 1 VIEW, NON [id number] 02:31:00Reason for exam:->post opShould this be performed at the bedside?->Yes [facility] 1960 Sex: MFINAL [...] Givens Verified Date/Time: 05/29/2020 02:31:37 LACTIC ACID, [id number] 22:35:00 Test Item Value Reference Range Interpretation Comments LACTATE BLOOD 2.0 mmol/L 0.5-2.2 Specimen sligh tly ARTERIAL (2) (BEAKER) hemoly zed (test code = 2874) Health And Wellness Director ID - DBBLOOD GAS, [id number] 22:22:00 Test Item Value Reference Range Interpretation [...] (BEAKER) (test code = 1819) 28.0 GLUCOSE-STAT [id number] 22:22:00 Test Item Value Reference Range Interpretation Comments GLUCOSE RANDOM (BEAKER) (test code 138 mg/dL 70-110 H = 652) HGB/HCT (H&H) - STAT [id number] 22:22:00 Test Item Value Reference Range Interpretation Comments HEMOGLOBIN (BEAKER) (test code = 8.6 GM/DL 13.0-16.8 L 410) HEMATOCRIT (BEAKER) (test code = 25.0 % 40.0-50.0 L 411) CALCIUM, [id number] 22:22:00 Test Item Value Reference Range Interpretation Comments CALCIUM IONIZED (BEAKER) (test 1.03 mmol/L 1.12-1.27 L code = 698) PH, BLOOD (BEAKER) (test code = 7.38 1810) SODIUM NA-STAT [id number] 22:20:00 Test Item Value Reference Range Interpretation Comments SODIUM (BEAKER) (test code = 381) 136 meq/L 136-145 POTASSIUM-STAT [id number] 22:20:00 Test Item Value Reference Range Interpretation Comments POTASSIUM (BEAKER) (test code = 3.6 meq/L 3.6-5.5 379) BLOOD GAS, [id number] 14:24:00 Test Item Value Reference Range Interpretation [...] FIO2 (BEAKER) (test code = 1819) 40.0 [id number] 12:46:00 Test Item Value Reference Range Interpretation Comments MAGNESIUM (BEAKER) 2.4 mg/dL 1.6-2.6 Specimen slightly (test code = 627) hemolyzed Health And Wellness Director ID - [id number] 12:46:00 Test Item Value Reference Range Interpretation Comments PHOSPHORUS (BEAKER) 4.2 mg/dL 2.3-4.7 Specimen slightly (test code = 604) hemolyzed Health And Wellness Director ID - EMERSONCOMPREHENSIVE METABOLIC [id number] 12:46:00 Test Item Value Reference Range Interpretation [...] S NOT APPLICABLE FOR DIALYSIS PATIEN TS. Health And Wellness Director ID - EMERSONLACTIC ACID, [id number] 12:41:00 Test Item Value Reference Range Interpretation Comments LACTATE BLOOD 2.1 mmol/L 0.5-2.2 Specimen sligh tly ARTERIAL (2) (BEAKER) hemoly zed (test code = 2874) Health And Wellness Director ID - EMERSONPROTHROMBIN TIME/[id number] 12:29:00 Test Item Value Reference Range Interpretation Comments PROTIME (BEAKER) 17.3 seconds 11.9-14.2 H (test code = 759) INR (BEAKER) (test 1.46 See_Comment [Automat ed message] code = 370) The system BIOSAFE generated this result transmitted ref erence range: <=5.90. The reference range was not used to int erpret this result as normal/abnormal . Effective 08/08/2018: PT Reference Range ChangeNew: 11.9-14.2 Previous: 11.7- 14.7RECOMMENDED COUMADIN/WARFARIN INR THERAPY RANGESSTANDARD DOSE: 2.0-3.0 Includes: PROPHYLAXIS for venous thrombosis, systemic embolization; TREATMENT for venous thrombosis and/or pulmonary embolus.HIGH RISK: Target INR is 2.5-3.5 for patients wiht mechanical heart valves.[id number] 12:29:00 Test Item Value Reference Range Interpretation Comments PARTIAL THROMBOPLASTIN TIME 31.3 seconds 22.5-36.0 (BEAKER) (test code = 760) [id number] 12:28:00 Test Item Value Reference Range Interpretation Comments PARTIAL THROMBOPLASTIN TIME 31.3 seconds 22.5-36.0 (BEAKER) (test code = 760) [id number] 12:28:00 Test Item Value Reference Range Interpretation Comments FIBRINOGEN LEVEL (BEAKER) (test 180 mg/dl 225-434 L code = 658) PROTHROMBIN TIME/[id number] 12:27:00 Test Item Value Reference Range Interpretation Comments PROTIME (BEAKER) 17.2 seconds 11.9-14.2 H (test code = 759) INR (BEAKER) (test 1.45 See_Comment [Automat ed message] code = 370) The system BIOSAFE generated this result transmitted ref erence range: [...] mechanical heart valves.CBC W/PLT COUNT & AUTO [id number] 12:15:00 Test Item Value Reference Range Interpretation [...] (BEAKER) (test code = 2801) SODIUM NA-STAT [id number] 12:10:00 Test Item Value Reference Range Interpretation Comments SODIUM (BEAKER) (test code = 381) 138 meq/L 136-145 POTASSIUM-STAT [id number] 12:10:00 Test Item Value Reference Range Interpretation Comments POTASSIUM (BEAKER) (test code = 4.0 meq/L 3.6-5.5 379) CALCIUM, [id number] 12:10:00 Test Item Value Reference Range Interpretation Comments CALCIUM IONIZED (BEAKER) (test 1.17 mmol/L 1.12-1.27 code = 698) PH, BLOOD (BEAKER) (test code = 7.39 1810) BLOOD GAS, [id number] 12:10:00 Test Item Value Reference Range Interpretation [...] (BEAKER) (test code = 1819) 50.0 GLUCOSE-STAT [id number] 12:10:00 Test Item Value Reference Range Interpretation Comments GLUCOSE RANDOM (BEAKER) (test code 117 mg/dL 70-110 H = 652) HGB/HCT (H&H) - STAT [id number] 12:10:00 Test Item Value Reference Range Interpretation Comments HEMOGLOBIN (BEAKER) (test code = 11.1 GM/DL 13.0-16.8 L 410) HEMATOCRIT (BEAKER) (test code = 33.0 % 40.0-50.0 L 411) OXYGEN SATURATION, [id number] 12:08:00 Test Item Value Reference Range Interpretation Comments O2 SATURATION (MEASURED) (BEAKER) 62.2 % (test code = 1455) RAD, CHEST, 1 VIEW, NON [id number] 12:01:00Reason for exam:->post opShould this be performed at the bedside?->Yes [facility] 1960 Sex: MFINAL [...] MDReport Verified Date/Time: 05/28/2020 12:01:29 Reading Location: [facility] Radiology Reading Room CBC W/PLT COUNT & AUTO [id number] 11:56:00 Test Item Value Reference Range Interpretation [...] 0-1 PERCENT (BEAKER) (test code = 2801) [id number] 10:44:00 Test Item Value Reference Range Interpretation Comments ACTIVATED CLOTTING TIME 114 sec : 74 -137 seconds, (BEAKER) (test code = Baseli ne: TESTED AT 441) [address], [facility] 30: Health And Wellness Director/Techni yuly ID = [id number] for NG CHERYL, DUNG PROTHROMBIN TIME/[id number] 10:43:00 Test Item Value Reference Range Interpretation Comments PROTIME (BEAKER) 18.6 seconds 11.9-14.2 H (test code = 759) INR (BEAKER) (test 1.60 See_Comment [Automat ed message] code = 370) The system BIOSAFE generated this result transmitted ref erence range: <=5.90. The reference range was not used to int erpret this result as normal/abnormal . Effective 08/08/2018: PT Reference Range ChangeNew: 11.9-14.2 Previous: 11.7- 14.7RECOMMENDED COUMADIN/WARFARIN INR THERAPY RANGESSTANDARD DOSE: 2.0-3.0 Includes: PROPHYLAXIS for venous thrombosis, systemic embolization; TREATMENT for venous thrombosis and/or pulmonary embolus.HIGH RISK: Target INR is 2.5-3.5 for patients wiht mechanical heart valves.[id number] 10:43:00 Test Item Value Reference Range Interpretation Comments FIBRINOGEN LEVEL (BEAKER) (test 184 mg/dl 225-434 L code = 658) [id number] 10:43:00 Test Item Value Reference Range Interpretation Comments PARTIAL THROMBOPLASTIN TIME 31.6 seconds 22.5-36.0 (BEAKER) (test code = 760) [id number] 10:43:00 Test Item Value Reference Range Interpretation Comments ACTIVATED CLOTTING TIME 598 sec : 74 -137 seconds, (BEAKER) (test code = Baseli ne: TESTED AT 441) [address], [facility] 30: Health And Wellness Director/Techni yuly ID = [id number] for NG CHERYL, DUNG [id number] 10:43:00 Test Item Value Reference Range Interpretation Comments ACTIVATED CLOTTING TIME 483 sec : 74 -137 seconds, (BEAKER) (test code = Baseli ne: TESTED AT 441) [address], [facility] 30: Health And Wellness Director/Techni yuly ID = [id number] for NG CHERYL, DUNG [id number] 10:43:00 Test Item Value Reference Range Interpretation Comments ACTIVATED CLOTTING TIME 588 sec : 74 -137 seconds, (BEAKER) (test code = Baseli ne: TESTED AT 441) [facility] [address] [facility], [address] 30: Health And Wellness Director/Techni yuly ID = [id number] for CRYSTAL ROSS [id number] 10:43:00 Test Item Value Reference Range Interpretation Comments ACTIVATED CLOTTING TIME 609 sec : 74 -137 seconds, (BEAKER) (test code = Baseli ne: TESTED AT 441) [facility] [address] [facility], [address] 30: Health And Wellness Director/Techni yuly ID = [id number] for CRYSTAL ROSS PLATELET [id number] 10:29:00 Test Item Value Reference Range Interpretation Comments PLATELET COUNT (BEAKER) (test 136 K/CU MM 150-450 L code = 756) Health And Wellness Director ID - [id number], [id number] 10:24:00 Test Item Value Reference Range Interpretation Comments CALCIUM IONIZED (BEAKER) (test 1.13 mmol/L 1.12-1.27 code = 698) PH, BLOOD (BEAKER) (test code = 7.38 1810) BLOOD GAS, [id number] 10:24:00 Test Item Value Reference Range Interpretation [...] (test code = 1819) 100.0 SODIUM NA-STAT [id number] 10:24:00 Test Item Value Reference Range Interpretation Comments SODIUM (BEAKER) (test code = 381) 134 meq/L 136-145 L POTASSIUM-STAT [id number] 10:24:00 Test Item Value Reference Range Interpretation Comments POTASSIUM (BEAKER) (test code = 5.6 meq/L 3.6-5.5 H 379) GLUCOSE-STAT [id number] 10:24:00 Test Item Value Reference Range Interpretation Comments GLUCOSE RANDOM (BEAKER) (test code 167 mg/dL 70-110 H = 652) HGB/HCT (H&H) - STAT [id number] 10:24:00 Test Item Value Reference Range Interpretation Comments HEMOGLOBIN (BEAKER) (test code = 10.3 GM/DL 13.0-16.8 L 410) HEMATOCRIT (BEAKER) (test code = 30.0 % 40.0-50.0 L 411) BLOOD GAS, [id number] 10:11:00 Test Item Value Reference Range Interpretation [...] (BEAKER) (test code = 1819) 85.0 POTASSIUM-STAT [id number] 10:11:00 Test Item Value Reference Range Interpretation Comments POTASSIUM (BEAKER) (test code = 6.0 meq/L 3.6-5.5 HH 379) Sample is not hemolyzedGLUCOSE-STAT [id number] 10:11:00 Test Item Value Reference Range Interpretation Comments GLUCOSE RANDOM (BEAKER) (test code 187 mg/dL 70-110 H = 652) HGB/HCT (H&H) - STAT [id number] 10:11:00 Test Item Value Reference Range Interpretation Comments HEMOGLOBIN (BEAKER) (test code = 10.3 GM/DL 13.0-16.8 L 410) HEMATOCRIT (BEAKER) (test code = 30.0 % 40.0-50.0 L 411) SODIUM NA-STAT [id number] 10:10:00 Test Item Value Reference Range Interpretation Comments SODIUM (BEAKER) (test code = 381) 135 meq/L 136-145 L BLOOD GAS, [id number] 09:42:00 Test Item Value Reference Range Interpretation [...] (BEAKER) (test code = 1819) 20.0 GLUCOSE-STAT [id number] 09:42:00 Test Item Value Reference Range Interpretation Comments GLUCOSE RANDOM (BEAKER) (test code 199 mg/dL 70-110 H = 652) HGB/HCT (H&H) - STAT [id number] 09:42:00 Test Item Value Reference Range Interpretation Comments HEMOGLOBIN (BEAKER) (test code = 9.1 GM/DL 13.0-16.8 L 410) HEMATOCRIT (BEAKER) (test code = 27.0 % 40.0-50.0 L 411) SODIUM NA-STAT [id number] 09:42:00 Test Item Value Reference Range Interpretation Comments SODIUM (BEAKER) (test code = 381) 131 meq/L 136-145 L POTASSIUM-STAT [id number] 09:42:00 Test Item Value Reference Range Interpretation Comments POTASSIUM (BEAKER) (test code = 7.1 meq/L 3.6-5.5 HH 379) Sample not hemolyzedPOTASSIUM-STAT [id number] 09:19:00 Test Item Value Reference Range Interpretation Comments POTASSIUM (BEAKER) (test code = 4.9 meq/L 3.6-5.5 379) BLOOD GAS, [id number] 09:19:00 Test Item Value Reference Range Interpretation [...] (test code = 1819) 75.0 SODIUM NA-STAT [id number] 09:19:00 Test Item Value Reference Range Interpretation Comments SODIUM (BEAKER) (test code = 381) 130 meq/L 136-145 L GLUCOSE-STAT [id number] 09:19:00 Test Item Value Reference Range Interpretation Comments GLUCOSE RANDOM (BEAKER) (test code 167 mg/dL 70-110 H = 652) HGB/HCT (H&H) - STAT [id number] 09:19:00 Test Item Value Reference Range Interpretation Comments HEMOGLOBIN (BEAKER) (test code = 9.3 GM/DL 13.0-16.8 L 410) HEMATOCRIT (BEAKER) (test code = 27.0 % 40.0-50.0 L 411) HGB/HCT (H&H) - STAT [id number] 08:27:00 Test Item Value Reference Range Interpretation Comments HEMOGLOBIN (BEAKER) (test code = 14.4 GM/DL 13.0-16.8 410) HEMATOCRIT (BEAKER) (test code = 42.0 % 40.0-50.0 411) CALCIUM, [id number] 08:27:00 Test Item Value Reference Range Interpretation Comments CALCIUM IONIZED (BEAKER) (test 1.13 mmol/L 1.12-1.27 code = 698) PH, BLOOD (BEAKER) (test code = 7.41 1810) BLOOD GAS, [id number] 08:27:00 Test Item Value Reference Range Interpretation [...] (BEAKER) (test code = 1819) 55.0 GLUCOSE-STAT [id number] 08:27:00 Test Item Value Reference Range Interpretation Comments GLUCOSE RANDOM (BEAKER) (test code 115 mg/dL 70-110 H = 652) SODIUM NA-STAT [id number] 08:27:00 Test Item Value Reference Range Interpretation Comments SODIUM (BEAKER) (test code = 381) 136 meq/L 136-145 POTASSIUM-STAT [id number] 08:27:00 Test Item Value Reference Range Interpretation Comments POTASSIUM (BEAKER) (test code = 4.7 meq/L 3.6-5.5 379) RAD, CHEST, 1 VIEW, NON [id number] 07:28:00Reason for exam:->[facility]op [facility] : 1960 Sex: MFINAL REPORT INDICATION: preop COMPARISON: None TECHNIQUE: Single frontal view of the chest. FINDINGS: Lungs and pleura: Minimal left basilar subsegmental atelectasis No effusion.Heart and mediastinum: Normal heart size. Unremarkable mediastinal contours.Osseous structures: No acute abn ormality.Other: None. IMPRESSION: No acute intrathoracic abnormality. Signed: Janey Arthur MDReport Verified Date/Time: 05/28/2020 07:28:02 Reading Location: [facility] Radiology Reading Room SARS-COV2/RT-PCR ([facility])2020-05-25 18:19:00 Test Item Value Reference Range Interpretation Comments SARS-COV2/RT-PCR (test Negative Not Detected, Negative, code = 3348264) See external report for linked test SARS-COV-2 PERFORMING LAB [facility] (test code = 8689746) Negative result for this test determines that [...] of the Act.Fact Sheet for Healthcare Prov iders:https://www.[employer]/sites/default/files/product/documents/Fact_Sheet_HC _Vfmyfyewt_Vzhg_EEHE-UwD-4.pdfFact Sheet for Healthcare Patients:https://www.[employer]/sites/default/files/product/docume nts/Lmka_Xpsjy_Kddupgzp_Fghi_NRQT-IlZ-6.pdfPerforming Laboratory:[facility] [place], [place] [address]UPPNVXHTSS [id number] 11:46:00 Test Item Value Reference Range Interpretation Comments HEMOGLOBIN A1C (BEAKER) (test code = 5.8 % 4.3-6.1 368) COMPREHENSIVE METABOLIC [id number] 10:42:00 Test Item Value Reference Range Interpretation [...] S NOT APPLICABLE FOR DIALYSIS PATIEN TS. Health And Wellness Director ID - BILL CLIPID [id number] 10:42:00 Test Item Value Reference Range Interpretation [...] Borderline 130-159 High 160-189 Very High >=190 Health And Wellness Director ID - BILL [id number] 10:34:00 Test Item Value Reference Range Interpretation Comments PARTIAL THROMBOPLASTIN TIME 29.8 seconds 22.5-36.0 (BEAKER) (test code = 760) PROTHROMBIN TIME/[id number] 10:33:00 Test Item Value Reference Range Interpretation Comments PROTIME (BEAKER) 13.4 seconds 11.9-14.2 (test code = 759) INR (BEAKER) (test 1.06 See_Comment [Automat ed message] code = 370) The system BIOSAFE generated this result transmitted ref erence range: [...] mechanical heart valves.CBC W/PLT COUNT & AUTO [id number] 10:25:00 Test Item Value Reference Range Interpretation [...]
--- NOTE | 2022-02-23 16:03 | RAD REPORT ---
EXAM DESCRIPTION: RAD - Knee Left 2 View - 02/23/2022 3:21 pm CLINICAL HISTORY: Left knee surgery FINDINGS: Left knee arthroplasty. Prosthesis is in good position. No fracture or dislocation
[2022-02-23] MEDS: HYDROCODONE/APAP 7.5/325 MG TAB PO PRN ×2 (16:56→22:28)
[2022-02-23] MEDS: CEFAZOLIN SODIUM 2 GM in NA CHLORIDE 0.9% 100 ML IVPB SCH (16:57)
--- NOTE | 2022-02-23 17:03 | P.OP ---
Preoperative diagnosis: left knee osteoarthritis Postoperative diagnosis: same Primary procedure: left total knee arthroplasty Anesthesia: general Estimated blood loss: 50 cc Specimen: left knee bone remnants Findings: see dictation Operative Technique: Indication For Procedure: Shawn is a 61 year-old male presenting to my clinic with signs, symptoms and x-ray findings consistent with severe left knee osteoarthritis. I discussed with the patient at length risks and benefits associated with operative and nonoperative treatment. He had failed conservative treatment measures and had significant difficulties with ADLs secondary to his pain. We discussed operative treatment and elected to proceed with left total knee arthroplasty. He expressed understanding and elected to proceed with operative treatment. Description Of Procedure: After informed consent was obtained, the patient was identified in the preoperative holding area. The left lower extremity was marked. The patient was then taken to the PACU where he underwent a left lower extremity adductor canal block performed by Anesthesia. He was then taken to the operating room, transferred to the operating table in supine fashion, and placed under general anesthesia. The left lower extremity was then prepped and draped in usual sterile fashion. A time-out was initiated. The correct patient and procedure were confirmed and identified. The patient did receive his preoperative prophylactic antibiotics. The left lower extremity was then exsanguinated and tourniquet was inflated to 300 mmHg. Approximately 15 cm longitudinal incision was made centered over the anterior aspect of the left knee. Dissection was then taken to the extensor mechanism and a medial parapatellar arthrotomy was performed. The patella was everted and dislocated laterally and the knee was flexed in the fat pad. Medial lateral meniscus and ACL were all excised exposing the distal femur. Excess hypertrophic synovium was also excised within the suprapatellar pouch. The patient had a CT scan of his left knee preoperatively for surgical planning and creation of cutting blocks. The cutting block was then placed over the distal femur and pins were then placed. The distal femoral cutting block was then placed over the pins. An noam wing was then used to ensure proper depth cut and the distal femur was then cut. The chamfer cutting guide was then placed over the distal end of the femur. Anterior, posterior cuts as well as anterior and posterior chamfer cuts were then made again confirming proper depth of the cut using an Noam wing. Excess bone remnants were then sent to pathology for further evaluation. Next, attention was taken to the proximal tibia. A tibial jig and tibial cutting block was then placed on proximal aspect of the left tibia and locked into position. Pins were then placed and alignment guide was then used to confirm proper alignment of the cut and then coronal and sagittal planes. Once this was confirmed, the cutting jig was placed over the pins and the proximal tibia was cut. Sizing trays were then selected and size 12 mm spacer was used and there was good overall balance in flexion and extension. Next, the trial implants were then placed using the size 8 standard CR femur and a size G tibia with a 12 mm CR poly. There was overall good range of motion and good stability. The trial implants were then removed. This improved the overall stability of the knee and components. The wound was then irrigated thoroughly with normal saline and the knee was then injected with 20 cc of 0.5% Marcaine and 20 cc of 1% lidocaine with epinephrine both in the posterior capsule and medial and lateral gutters as well as quadriceps tendon and periosteum. The tibia was then punched. The femur was drilled. The cement was then prepared on the back table. Cement was then placed first on the tibial surface followed by size G tibia. Excess cement was removed with [place] elevators. Size 8 standard CR femur was then placed on the distal femur after cement was placed on the distal femur. Excess cement was then removed and a size 12 mm CR trial poly was then placed. The knee was held in extension as the cement hardened. Undersurface of the patella was prepared debriding osteophytes using rongeurs as well as osteophytes.. Cement was placed on the undersurface of the patella after it was cut and a size 32 patella was placed. Once the cement was hardened, the knee was ranged, there was good overall stability both in flexion, extension and as well as stability with varus and valgus stresses. Trial poly was then removed and a size 12 mm CR poly was then placed and locked into position. The knee was then ranged again. There was good overall range of motion both for flexion and extension with good stability. The wound was then irrigated again thoroughly with normal saline using pulse lavage. Tourniquet was let down. Hemostasis was achieved using Bovie electrocautery. Extensor mechanism was then approximated using a #1 Vicryl both in interrupted and running fashion. The fascia was then approximated using 0 Vicryl. Subcutaneous tissue was approximated with a 2-0 Vicryl. Skin was approximated using margarita. Sterile dressings were applied. The patient was awakened and transferred back in stable condition Complications: None Implants: [employer] Persona 8 CR femur, G tibia, 32 patella, 12 CR poly Fluids & blood products: per anesthesia record; TT: 66 mins @ 300 mmHg Transferred to: Recovery Room Condition: Good
[2022-02-23 17:26] VITALS: BMI 30.7
[2022-02-24] MEDS: CEFAZOLIN SODIUM 2 GM in NA CHLORIDE 0.9% 100 ML IVPB SCH ×2 (00:33→08:35)
[2022-02-24 01:32] VITALS: O2SAT 95
[2022-02-24 03:53] LABS: Hematocrit 39.5 % (39.6-49.0)
[2022-02-24] MEDS: ENOXAPARIN 30 MG/0.3 ML SQ SCH ×2 (05:27→08:36)
[2022-02-24] MEDS ORDERED: ATORVASTATIN 20 MG TAB PO SCH (09:00)
[2022-02-24] MEDS ORDERED: CELECOXIB 100 MG CAPSULE PO SCH (09:00)
[2022-02-24] MEDS: HYDROCODONE/APAP 7.5/325 MG TAB PO PRN (11:19)
--- NOTE | 2022-02-24 12:28 | P.DS ---
Admission Date: 02/23/22 Discharge Date: 02/24/22 Disposition: DC HOME/HOME HEALTH CARE Discharge Condition: GOOD Reason for Admission: L TKA Consultations: none Procedures: left total knee arthroplasty 02/23/2022 Brief History of Present Illness: Shawn is a 61-year-old male who underwent left total knee arthroplasty on February 23, 2022. He was admitted to floor postoperatively for pain control and physical therapy. Hospital Course: Patient was admitted to floor postoperatively in stable condition. Physical therapy was consulted the patient mobilize safely prior to discharge. His vital signs remained stable while in the hospital. He will follow-up 2 weeks postop for staple removal. Vital Signs/Physical Exam: Temp Pulse Resp BP Pulse Ox 97.2 F 67 14 114/60 98 02/24/22 08:00 02/24/22 08:00 02/24/22 08:00 02/24/22 08:00 02/24/22 08:00 Laboratory Data at Discharge: WBC 6.30 K/uL (4.3-10.9) 02/11/22 13:32 Hgb 13.4 g/dL (13.6-17.9) L 02/24/22 03:09 Hct 39.5 % (39.6-49.0) L 02/24/22 03:09 Plt Count 257 K/uL (152-406) 02/11/22 13:32 PT 12.0 SECONDS (9.5-12.5) 02/11/22 13:32 INR 1.09 02/11/22 13:32 APTT 30.9 SECONDS (24.3-36.9) 02/11/22 13:32 Sodium 135 mmol/L (136-145) L 02/11/22 13:32 Potassium 4.0 mmol/L (3.5-5.1) 02/11/22 13:32 BUN 8 mg/dL (7-18) 02/11/22 13:32 Creatinine 0.70 mg/dL (0.55-1.3) 02/11/22 13:32 Glucose 94 mg/dL (74-106) 02/11/22 13:32 Home Medications: Atorvastatin Calcium [Lipitor*] 20 mg PO DAILY 11/26/21 Hydrocodone 7.5/APAP 325 [[place] 7.5/325 mg*] 1 tab PO Q4H PRN tab 02/24/22 Physician Discharge Instructions: keep dressing c/d/i; keep BLE [place] hose x 2 weeks to aid with swelling. begin Xarelto tomorrow 02/25/2022 with breakfast and take once daily Diet: Regular Activity: Weight bearing as tolerated Followup: Travon Ham MD [ACTIVE - CAN ADMIT] - 1-2 Weeks
[2022-02-24 12:36] VITALS: BP 95/53; TEMP 98
== END 2022-02-24 16:31 | disposition home health service (06) ==
LOC: OR 10:03 → 2ND 15:51
PROVIDERS: ADMIT Orthopaedic Surgery Sports Medicine; ATTEND Orthopaedic Surgery Sports Medicine
PROC: 0SRD069 Replacement of Left Knee Joint with Oxidized Zirconium on Polyethylene Synthetic Substitute, Cemented, Open Approach (ICD-10-PCS; principal; 2022-02-23 12:00)
DX: M17.12 Unilateral primary osteoarthritis, left knee (principal); M25.562 Pain in left knee; Z20.822 Contact with and (suspected) exposure to COVID-19
CPT/HCPCS: 85025; 80048; 36415 ×2; 85610; 88304; 88311; 85730; 85018 ×2; 85014 ×2; 73560; 97116 ×3; 97139; 97161; 97530; 94010; 87811; 27447; J2704; J0171; J2001 ×2; J1650; J2250; J3010; J1100 ×2; J2270; A4216; J1170 ×2; J7120 ×2; J2405 ×2; G0379; G0378 ×2